=== PATIENT | female | born 1965 | race Caucasian/White ===

== ENCOUNTER → 2018-05-09 18:00 | Outpatient (CLI) | payer BC, SELFPAY ==
[2018-05-09 18:03] LABS: Microscopic, Urine URINE MICROSCOPIC (MICROSCOPIC)
[2018-05-09 18:39] LABS: Appearance,Urine CLOUDY (Clear); Bilirubin,Urine Negative (Negative); Blood, Urine Negative (Negative); Color,Urine YELLOW (Yellow); Glucose,Urine (UA) 2+ (Negative); Ketones,Urine Negative (Negative); Leukocyte Esterase,Urine Negative (Negative); Nitrate,Urine POSITIVE (Negative); PH,Urine 5.5 (5.0-8.5); Protein,Urine Negative (Negative); Urobilinogen,Urine 0.2 EU/dl (0.2)
[2018-05-09 18:45] LABS: Basophils % 0.5 % (0.1-2.0); Eosinophils # 0.1 K/mm3 (0.0-0.4); Eosinophils % 0.6 % (0.1-12.0); Hematocrit 39.8 % (37.0-47.0); Hemoglobin 12.9 g/dL (12.2-16.2); Lymphocytes # 2.2 K/mm3 (0.7-4.5); Lymphocytes % 26.1 % (10-50); Mean Corpuscular HGB Conc 32.4 g/dL (31.8-35.4); Mean Corpuscular Hemoglobin 30.2 pg (27.0-31.2); Mean Platelet Volume 9.1 fl (7.4-10.4); Monocytes # 0.5 K/mm3 (0.1-1.0); Monocytes % 5.5 % (1.7-9.3); Neutrophils # 5.6 K/mm3 (1.8-7.8); Neutrophils % 67.3 % (37.0-80.0); Platelet Count 199 K/mm3 (142-424); Red Blood Count 4.28 M/mm3 (4.20-5.40); Red Cell Distribution Width 13.7 % (11.5-17.5); White Blood Count 8.3 K/mm3 (4.8-10.8)
[2018-05-09 19:13] LABS: Amorphous Sediment,Urine 4+ /lpf
[2018-05-09 19:30] LABS: Hemoglobin A1C 9.2 % (0.0-7.0)
[2018-05-09 19:51] LABS: Alanine Aminotransferase 71 U/L (12-78); Albumin Level 3.5 gm/dL (3.4-5.0); Albumin/Globulin Ratio 0.9 (1.1-1.8); Alkaline Phosphatase 106 U/L (46-116); Anion Gap 13.5 mEq/L (5-15); Aspartate Amino Transferase 56 U/L (15-37); Bilirubin,Total 0.5 mg/dL (0.2-1.0); Blood Urea Nitrogen 21 mg/dL (7-18); Calcium 8.8 mg/dL (8.5-10.1); Carbon Dioxide 31 mmol/L (21.0-32.0); Chloride 99 mmol/L (98-107); Chol/HDL Ratio 4.9 (1-3.5); Cholesterol 132 mg/dL (140-200); Creatinine,Serum 0.98 mg/dL (0.55-1.02); Estimated Glomerular Filt Rate 60 ml/min (>60); GFR (African American) 73 ML/MIN (>60); Globulin 3.8 gm/dl (1.3-3.2); Glucose 253 mg/dL (74-106); HDL Cholesterol 27 mg/dL (29-89); LDL Cholesterol 89 mg/dL (0-130); Potassium 4.5 mmoL/L (3.5-5.1); Sodium 139 mmol/L (136-145); T4 (Thyroxine) 10.2 ug/dl (4.7-13.3); Total Protein,Serum 7.3 gm/dL (6.4-8.2); Triglycerides 82 mg/dL (30-200); VLDL Cholesterol 16 mg/dL (0-40)
[2018-05-11 06:41] LABS: Microalbumin, Urine 6.2 ug/mL (Not Estab.)
[2018-05-11 18:07] LABS: Hep A Ab, IgM Negative (Negative); Hepatitis B Core Antibody IgM Negative (Negative); Hepatitis B Surface Antigen Negative (Negative)
[2018-05-13 09:54] LABS: Hepatitis C Antibody >11.0 s/co ratio (0.0-0.9)
[2018-05-13 09:56] LABS: Vitamin D 25 Hydroxy 21.9 ng/mL (30.0-100.0)
== END ==
PROVIDERS: Visit Provider Emergency Medicine
DX: E11.9 Type 2 diabetes mellitus without complications (principal); N39.0 Urinary tract infection, site not specified; G62.9 Polyneuropathy, unspecified; E66.9 Obesity, unspecified; Z72.0 Tobacco use; Z79.84 Long term (current) use of oral hypoglycemic drugs; Z79.899 Other long term (current) drug therapy
CPT/HCPCS: 80053; 80061; 80074; 81001; 82043; 82570; 82652; 83036; 84436; 84443; 85025; 87086; 87088; 87186

== ENCOUNTER → 2018-05-14 14:47 | Outpatient (CLI) | payer BC, SELFPAY ==
[2018-05-14 15:16] LABS: INR 1.03 (0.9-1.1); Prothrombin Time 10.6 seconds (9.4-11.8)
[2018-05-16 10:53] LABS: HIV Screen 4th Generation wRfx Non Reactive (Non Reactive); Hep A Ab, Total Negative (Negative)
[2018-05-18 20:07] LABS: HCV Genotype Charge YES; Hepatitis C Genotype 3 (.)
== END ==
PROVIDERS: Visit Provider Emergency Medicine
DX: R76.8 Other specified abnormal immunological findings in serum (principal)
CPT/HCPCS: 36415; 85610; 86703; 86708; 87522; 87902; G0432

== ENCOUNTER → 2018-12-03 18:37 | Outpatient (CLI) | payer BC, SELFPAY ==
[2018-12-03 19:02] LABS: Basophils % 0.4 % (0.1-2.0); Eosinophils # 0.1 K/mm3 (0.0-0.4); Eosinophils % 1.1 % (0.1-12.0); Hematocrit 46.9 % (37.0-47.0); Hemoglobin 15.2 g/dL (12.2-16.2); Lymphocytes # 2.1 K/mm3 (0.7-4.5); Mean Corpuscular HGB Conc 32.5 g/dL (31.8-35.4); Mean Corpuscular Hemoglobin 29.9 pg (27.0-31.2); Mean Corpuscular Volume 91.9 fl (81-99); Monocytes # 0.5 K/mm3 (0.1-1.0); Monocytes % 5.4 % (1.7-9.3); Neutrophils % 69.1 % (37.0-80.0); Platelet Count 291 K/mm3 (142-424); Red Cell Distribution Width 14.4 % (11.5-17.5); White Blood Count 8.7 K/mm3 (4.8-10.8)
[2018-12-03 19:20] LABS: Hemoglobin A1C 7.8 % (0.0-7.0)
[2018-12-03 19:28] LABS: Alanine Aminotransferase 112 U/L (12-78); Albumin Level 4.2 gm/dL (3.4-5.0); Albumin/Globulin Ratio 1.1 (1.1-1.8); Alkaline Phosphatase 96 U/L (46-116); Anion Gap 15.4 mEq/L (5-15); Aspartate Amino Transferase 69 U/L (15-37); Bilirubin,Total 0.5 mg/dL (0.2-1.0); Blood Urea Nitrogen 11 mg/dL (7-18); Calcium 9.5 mg/dL (8.5-10.1); Carbon Dioxide 27 mmol/L (21.0-32.0); Chloride 101 mmol/L (98-107); Chol/HDL Ratio 8.1 (1-3.5); Cholesterol 179 mg/dL (140-200); Creatinine,Serum 0.83 mg/dL (0.55-1.02); Estimated Glomerular Filt Rate 72 ml/min (>60); GFR (African American) 88 ML/MIN (>60); Globulin 3.9 gm/dl (1.3-3.2); Glucose 202 mg/dL (74-106); HDL Cholesterol 22 mg/dL (29-89); LDL Cholesterol 123 mg/dL (0-130); Potassium 4.4 mmoL/L (3.5-5.1); Sodium 139 mmol/L (136-145); Thyroid Stimulating Hormone 1.07 uIU/ml (0.358-3.740); Total Protein,Serum 8.1 gm/dL (6.4-8.2); Triglycerides 170 mg/dL (30-200); VLDL Cholesterol 34 mg/dL (0-40)
[2018-12-05 10:11] LABS: Vitamin D 25 Hydroxy 31.5 ng/mL (30.0-100.0)
== END ==
PROVIDERS: Visit Provider Emergency Medicine
DX: E11.9 Type 2 diabetes mellitus without complications (principal); Z79.84 Long term (current) use of oral hypoglycemic drugs
CPT/HCPCS: 80053; 80061; 82652; 83036; 84439; 84443; 85025

== ENCOUNTER → 2018-12-16 10:33 | Outpatient (CLI) | payer BC, SELFPAY ==
--- NOTE | 2018-12-16 10:48 | XR_ITS ---
PROCEDURE: XR LUMBAR SPINE MIN 4V CLINICAL INDICATION: back pain Low back pain COMPARISON: No exams were available for comparison FINDINGS: Minimal lumbar curvature convex right. No fracture or dislocation. There is 5 mm anterolisthesis of L4 on L5. Mild multilevel degenerative disc disease at T10-T11 T11-T12 T12-L1 L1-L2 L2-L3 L4-5 and L5-S1. Facet arthritic changes are also noted at L4 and L5 and S1. No lytic or blastic change. IMPRESSION: Lumbar spondylosis with multilevel degenerative disc disease and facet arthritic change as described above. Dictated by: Stalin Hou MD 12/16/2018 11:18 Electronically signed by Stalin Hou MD in [place] 12/16/2018 11:18
== END ==
PROVIDERS: PCP Emergency Medicine; Visit Provider Emergency Medicine
DX: M54.5 Low back pain (principal)
CPT/HCPCS: 72110

== ENCOUNTER → 2019-03-13 13:22 | Outpatient (CLI) | payer BC, SELFPAY ==
[2019-03-13 16:10] LABS: Amphetamine/Metha Screen,Urine Negative ng/mL (<1000); Barbiturates Screen,Urine Negative ng/mL (<200); Benzodiazepines Screen,Urine Negative ng/mL (<200); Cannabinoid Screen,Urine Negative ng/mL (<50); Cocaine Screen,Urine Negative ng/mL (<300); Methadone Screen,Urine Negative ng/mL (<300); Opiate Screen,Urine Negative ng/mL (<300); Phencyclidine Screen,Urine Negative ng/mL (<25)
[2019-03-24 07:10] LABS: Alprazolam Negative (Cutoff=100); Benzodiazepines Negative ng/mL (Cutoff=100); Clonazepam Negative (Cutoff=100); Flurazepam Negative (Cutoff=100); Lorazepam Negative (Cutoff=100); Midazolam Negative (Cutoff=100); Temazepam Negative (Cutoff=100); Triazolam Negative (Cutoff=100)
== END ==
PROVIDERS: Visit Provider Emergency Medicine
DX: F41.9 Anxiety disorder, unspecified (principal); Z79.899 Other long term (current) drug therapy
CPT/HCPCS: 80305; 80346

== ENCOUNTER → 2020-06-02 17:42 | Outpatient (CLI) | payer BC, SELFPAY ==
[2020-06-02 17:59] LABS: Alanine Aminotransferase 105 U/L (12-78); Albumin Level 4.2 g/dl (3.5-5.0); Albumin/Globulin Ratio 1.1 (1.1-1.8); Alkaline Phosphatase 169 U/L (38-126); Anion Gap 13.8 mEq/L (5-15); Aspartate Amino Transferase 103 U/L (14-36); Bilirubin,Total 0.5 mg/dl (0.2-1.3); Blood Urea Nitrogen 15 mg/dl (7-17); Calcium 9.7 mg/dl (8.4-10.2); Carbon Dioxide 28 mmol/L (22.0-30.0); Chloride 100 mmol/L (98-107); Cholesterol 183 mg/dl (140-200); Estimated Glomerular Filt Rate 105 ml/min (>60); GFR (African American) 127 ML/MIN (>60); Glucose 237 mg/dl (74-100); HDL Cholesterol 26 mg/dl (40-60); Potassium 4.8 mmoL/L (3.5-5.1); Sodium 137 mmol/L (136-145); Total Protein,Serum 8.2 g/dl (6.3-8.2); Triglycerides 254 mg/dl (30-150); VLDL Cholesterol 51 mg/dL (0-40)
[2020-06-02 18:10] LABS: Direct LDL Cholesterol 117.44 mg/dL (100-129)
[2020-06-02 18:16] LABS: T4 (Thyroxine) 12.3 ug/dl (5.53-11.0)
[2020-06-02 18:30] LABS: Thyroid Stimulating Hormone 1.69 uIU/mL (0.465-4.68)
[2020-06-02 19:32] LABS: 25-OH Vitamin D, Total 20.3 ng/mL (30-100); Barbiturates Screen,Urine Negative ng/ml (<200)
[2020-06-02 19:33] LABS: Benzodiazepines Screen,Urine Negative ng/ml (<200); Cannabinoid Screen,Urine Negative ng/ml (<50)
[2020-06-02 19:34] LABS: Cocaine Screen,Urine Negative ng/ml (<300); Creatinine,Urine Random 84 mg/dL (Not Estab.)
[2020-06-02 19:35] LABS: Methadone Screen,Urine Negative ng/ml (<300); Opiate Screen,Urine Negative ng/ml (<300)
[2020-06-02 19:36] LABS: Phencyclidine Screen,Urine Negative ng/ml (<25)
[2020-06-02 19:43] LABS: Microalbumin > 570.000 mg/L (0-16.7); Microalbumin/Creatinine Ratio 678.5
[2020-06-04 18:03] LABS: C-Peptide 6.2 ng/mL (1.1-4.4)
[2020-06-08 11:35] LABS: Amphetamine Positive (.); Amphetamines Positive (.); Methamphetamine Positive (.)
[2020-06-08 16:39] LABS: Amphetamine (GC/MS) 1530 ng/mL (Cutoff=500); Methamphetamine (GC/MS) >3000 ng/mL (Cutoff=500)
== END ==
PROVIDERS: Visit Provider Nurse Practitioner Family
DX: E11.9 Type 2 diabetes mellitus without complications (principal); E55.9 Vitamin D deficiency, unspecified; E66.9 Obesity, unspecified; I10 Essential (primary) hypertension; F41.9 Anxiety disorder, unspecified; G62.9 Polyneuropathy, unspecified; Z79.4 Long term (current) use of insulin; Z79.899 Other long term (current) drug therapy
CPT/HCPCS: 80053; 80061; 80305; 80324; 82043; 82306; 82570; 84436; 84443; 84681

== ENCOUNTER → 2021-05-01 16:00 | Outpatient (CLI) | payer BC, SELFPAY ==
[2021-05-01 18:14] LABS: Basophils # 0.1 K/mm3 (0-0.2); Basophils % 1.3 % (0.1-2.0); Eosinophils # 0.1 K/mm3 (0.0-0.4); Eosinophils % 1.6 % (0.1-12.0); Hematocrit 42.2 % (37.0-47.0); Hemoglobin 13.5 g/dL (12.2-16.2); Lymphocytes # 1.5 K/mm3 (0.7-4.5); Mean Corpuscular HGB Conc 31.9 g/dL (31.8-35.4); Mean Corpuscular Hemoglobin 29.2 pg (27.0-31.2); Mean Corpuscular Volume 91.4 fl (81-99); Monocytes # 0.3 K/mm3 (0.1-1.0); Monocytes % 6.5 % (1.7-9.3); Neutrophils # 2.7 K/mm3 (1.8-7.8); Neutrophils % 58.6 % (37.0-80.0); Platelet Count 176 K/mm3 (142-424); Red Blood Count 4.62 M/mm3 (4.20-5.40); Red Cell Distribution Width 14.2 % (11.5-17.5); White Blood Count 4.6 K/mm3 (4.8-10.8)
[2021-05-01 18:30] LABS: Alanine Aminotransferase 72 U/L (12-78); Albumin Level 3.4 g/dl (3.5-5.0); Albumin/Globulin Ratio 1.1 (1.1-1.8); Alkaline Phosphatase 259 U/L (38-126); Anion Gap 9.8 mEq/L (5-15); Aspartate Amino Transferase 77 U/L (14-36); Bilirubin,Total 0.4 mg/dl (0.2-1.3); Blood Urea Nitrogen 18 mg/dl (7-17); Calcium 9.2 mg/dl (8.4-10.2); Carbon Dioxide 30 mmol/L (22.0-30.0); Chloride 96 mmol/L (98-107); Chol/HDL Ratio 7.3 (1-3.5); Cholesterol 198 mg/dl (140-200); Estimated Glomerular Filt Rate 129 ml/min (>60); GFR (African American) 156 ML/MIN (>60); HDL Cholesterol 27 mg/dl (40-60); Potassium 4.8 mmoL/L (3.5-5.1); Sodium 131 mmol/L (136-145); Total Protein,Serum 6.4 g/dl (6.3-8.2)
[2021-05-01 18:40] LABS: Direct LDL Cholesterol 131.61 mg/dL (100-129)
[2021-05-01 18:43] LABS: Triglycerides 458 mg/dl (30-150)
[2021-05-01 18:47] LABS: 25-OH Vitamin D, Total < 12.8 ng/mL (30-100)
[2021-05-01 18:52] LABS: Amphetamine/Metha Screen,Urine Negative ng/ml (<1000); Barbiturates Screen,Urine Negative ng/ml (<200)
[2021-05-01 18:53] LABS: Benzodiazepines Screen,Urine Negative ng/ml (<200)
[2021-05-01 18:54] LABS: Cannabinoid Screen,Urine Positive ng/ml (<50); Cocaine Screen,Urine Negative ng/ml (<300)
[2021-05-01 18:55] LABS: Methadone Screen,Urine Negative ng/ml (<300); Opiate Screen,Urine Negative ng/ml (<300)
[2021-05-01 18:56] LABS: Phencyclidine Screen,Urine Negative ng/ml (<25)
[2021-05-01 18:59] LABS: Thyroid Stimulating Hormone 1.44 uIU/mL (0.465-4.68)
[2021-05-01 19:48] LABS: Glucose 501 mg/dl (74-100)
[2021-05-05 18:14] LABS: HCV Genotype Charge YES; Hepatitis C Genotype 3 (.)
== END ==
PROVIDERS: Visit Provider Emergency Medicine
DX: E11.9 Type 2 diabetes mellitus without complications (principal); E55.9 Vitamin D deficiency, unspecified; Z79.899 Other long term (current) drug therapy; Z79.4 Long term (current) use of insulin
CPT/HCPCS: 80053; 80061; 80305; 82306; 83036; 84439; 84443; 85025; 87522; 87902

== ENCOUNTER → 2021-09-06 07:04 | Outpatient (CLI) | payer BC, SELFPAY ==
[2021-09-05 18:27] LABS: Chloride 104 mmol/L (98-107); Potassium 3.8 mmoL/L (3.5-5.1); Sodium 140 mmol/L (136-145)
[2021-09-05 18:30] LABS: Anion Gap 6.8 mEq/L (5-15); Blood Urea Nitrogen 13 mg/dl (7-17); Calcium 9.9 mg/dl (8.4-10.2); Carbon Dioxide 33 mmol/L (22.0-30.0); Estimated Glomerular Filt Rate 105 ml/min (>60); GFR (African American) 127 ML/MIN (>60)
[2021-09-05 18:35] LABS: Glucose 42 mg/dl (74-100)
[2021-09-05 18:56] LABS: Hemoglobin A1C 8.2 % (4.0-6.0)
== END ==
PROVIDERS: PCP Emergency Medicine; Visit Provider Emergency Medicine
DX: E11.9 Type 2 diabetes mellitus without complications (principal); E66.9 Obesity, unspecified; Z79.4 Long term (current) use of insulin
CPT/HCPCS: 80048; 83036

== ENCOUNTER → 2021-11-03 16:16 | Outpatient (CLI) | payer BC, SELFPAY ==
[2021-11-03 15:58] LABS: Benzodiazepines Screen,Urine Negative ng/ml (<200)
[2021-11-03 15:59] LABS: Amphetamine/Metha Screen,Urine Negative ng/ml (<1000); Barbiturates Screen,Urine Negative ng/ml (<200)
[2021-11-03 16:00] LABS: Cannabinoid Screen,Urine Negative ng/ml (<50)
[2021-11-03 16:01] LABS: Cocaine Screen,Urine Negative ng/ml (<300); Methadone Screen,Urine Negative ng/ml (<300)
[2021-11-03 16:02] LABS: Opiate Screen,Urine Negative ng/ml (<300)
[2021-11-03 16:03] LABS: Phencyclidine Screen,Urine Negative ng/ml (<25)
== END ==
PROVIDERS: Visit Provider Emergency Medicine
DX: Z79.899 Other long term (current) drug therapy (principal)
CPT/HCPCS: 80305

== ENCOUNTER 2022-02-19 18:27 | Emergency (ER) | payer BC, SELFPAY ==
[2022-02-19 18:18] VITALS: BP 169/91; PULSE 109; RESP 18; TEMP 36.7; O2SAT 99; BMI 30.5
--- NOTE | 2022-02-19 18:24 | PC.NURSE ---
ED MD AT BEDSIDE FOR EVALUATE
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
[2022-02-19 19:01] LABS: Basophils # 0.1 K/mm3 (0-0.2); Basophils % 1.2 % (0.1-2.0); Eosinophils # 0.1 K/mm3 (0.0-0.4); Eosinophils % 1.2 % (0.1-12.0); Hematocrit 39.3 % (37.0-47.0); Hemoglobin 12.3 g/dL (12.2-16.2); Lymphocytes # 1.5 K/mm3 (0.7-4.5); Lymphocytes % 27.4 % (10-50); Mean Corpuscular HGB Conc 31.2 g/dL (31.8-35.4); Mean Corpuscular Hemoglobin 28.5 pg (27.0-31.2); Mean Corpuscular Volume 91.3 fl (81-99); Mean Platelet Volume 10.1 fl (7.4-10.4); Monocytes # 0.3 K/mm3 (0.1-1.0); Neutrophils # 3.5 K/mm3 (1.8-7.8); Neutrophils % 65.3 % (37.0-80.0); Platelet Count 152 K/mm3 (142-424); Red Blood Count 4.31 M/mm3 (4.20-5.40); Red Cell Distribution Width 13.8 % (11.5-17.5); White Blood Count 5.3 K/mm3 (4.8-10.8)
--- NOTE | 2022-02-19 19:05 | PC.NURSE ---
PT AMBULATED TO BR BUT DID NOT GIVE A SAMPLE
[2022-02-19 19:12] LABS: Potassium 3.8 mmoL/L (3.5-5.1)
[2022-02-19 19:13] LABS: Alanine Aminotransferase 58 U/L (12-78); Albumin Level 2.8 g/dl (3.5-5.0); Albumin/Globulin Ratio 0.8 (1.1-1.8); Alkaline Phosphatase 242 U/L (38-126); Anion Gap 14.8 mEq/L (5-15); Aspartate Amino Transferase 55 U/L (14-36); Blood Urea Nitrogen 17 mg/dl (7-17); Calcium 8.5 mg/dl (8.4-10.2); Carbon Dioxide 29 mmol/L (22.0-30.0); Chloride 92 mmol/L (98-107); Creatinine Clearance Estimated 110 mL/min (50-200); Estimated Glomerular Filt Rate 87 ml/min (>60); GFR (African American) 106 ML/MIN (>60); Globulin 3.3 g/dL (1.3-3.2); Sodium 132 mmol/L (136-145); Total Protein,Serum 6.1 g/dl (6.3-8.2)
[2022-02-19 19:26] LABS: Bilirubin,Total < 0.1 mg/dl (0.2-1.3)
[2022-02-19 19:28] LABS: Glucose 666 mg/dl (74-100)
--- NOTE | 2022-02-19 19:31 | PC.NURSE ---
lab called and reported glucose of 666. repeated and verified. Notified
[2022-02-19 19:38] LABS: Microscopic, Urine URINE MICROSCOPIC (MICROSCOPIC)
[2022-02-19 19:39] LABS: Appearance,Urine CLEAR (Clear); Bilirubin,Urine Negative (Negative); Blood, Urine 1+ (Negative); Glucose,Urine (UA) 3+ (Negative); Ketones,Urine Negative (Negative); Leukocyte Esterase,Urine Negative (Negative); Nitrate,Urine Negative (Negative); PH,Urine 6.5 (5.0-8.5); Protein,Urine 2+ (Negative); Specific Gravity, Urine 1.015 (1.005-1.030); Urobilinogen,Urine 0.2 EU/dl (0.2)
[2022-02-19 19:45] LABS: Color,Urine Straw (Yellow)
[2022-02-19 20:11] LABS: Bacteria,Urine Trace /lpf
[2022-02-19 20:16] LABS: Coronavirus 19, PCR Not Detected (NotDetected); Influenza A, PCR Not Detected (NotDetected); Influenza B, PCR Not Detected (NotDetected)
--- NOTE | 2022-02-19 20:35 | PC.NURSE ---
Dr. Murphy gave verbal order regarding patient blood glucose control. Per MD, patient is to be given 5 units of regular insulin every 30 minutes until her blood glucose reaches 400.
--- NOTE | 2022-02-19 21:00 | PC.NURSE ---
Patients repeat blood glucose was 318.
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
[2022-02-19 21:11] VITALS: BP 170/90; PULSE 102; RESP 18; TEMP 36.6; O2SAT 99
[2022-02-19 21:20] LABS: POC Glucose,Bedside 318 (70-110)
== END 2022-02-19 21:13 | disposition home or self-care (01) ==
PROVIDERS: Emergency Provider Emergency Medicine; PCP Emergency Medicine
DX: S22.080A Wedge compression fracture of T11-T12 vertebra, initial encounter for closed fracture (principal); R73.9 Hyperglycemia, unspecified; N39.0 Urinary tract infection, site not specified; Z79.82 Long term (current) use of aspirin; Z79.84 Long term (current) use of oral hypoglycemic drugs; Z79.4 Long term (current) use of insulin; Z79.899 Other long term (current) drug therapy; F41.9 Anxiety disorder, unspecified; G62.9 Polyneuropathy, unspecified; I10 Essential (primary) hypertension; E11.9 Type 2 diabetes mellitus without complications; B19.20 Unspecified viral hepatitis C without hepatic coma
CPT/HCPCS: 70450; 71260; 72125; 74177; 80053; 81001; 82962; 85025; 96365; 96367; 96375; 99291; C9803; J0696; Q9967; U0003; U0005

== ENCOUNTER 2022-03-02 13:30 | Emergency (ER) | payer OTHER, BC, SELFPAY ==
[2022-03-02 13:51] VITALS: BP 143/75; PULSE 100; RESP 18; TEMP 36.7; O2SAT 95; BMI 32.5
[2022-03-02 14:37] VITALS: BP 143/75; PULSE 100; RESP 18; TEMP 36.7; O2SAT 96; BMI 32.7
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
[2022-03-02 15:46] VITALS: BP 143/75; PULSE 100; RESP 18; TEMP 36.7
== END 2022-03-02 15:47 | disposition home or self-care (01) ==
LOC: ER 13:58 → UTC 13:58
PROVIDERS: Emergency Provider Nurse Practitioner Family; PCP Emergency Medicine
DX: M54.6 Pain in thoracic spine (principal); R07.81 Pleurodynia; V89.2XXS Person injured in unspecified motor-vehicle accident, traffic, sequela
CPT/HCPCS: 99212; G0463

== ENCOUNTER → 2022-03-13 14:13 | Outpatient (CLI) | payer BC, SELFPAY ==
[2022-03-13 22:07] LABS: Amphetamine/Metha Screen,Urine Negative ng/ml (<1000)
[2022-03-13 22:08] LABS: Barbiturates Screen,Urine Negative ng/ml (<200); Benzodiazepines Screen,Urine Negative ng/ml (<200)
[2022-03-13 22:09] LABS: Cannabinoid Screen,Urine Positive ng/ml (<50)
[2022-03-13 22:10] LABS: Cocaine Screen,Urine Negative ng/ml (<300); Methadone Screen,Urine Negative ng/ml (<300)
[2022-03-13 22:11] LABS: Opiate Screen,Urine Negative ng/ml (<300); Phencyclidine Screen,Urine Negative ng/ml (<25)
== END ==
PROVIDERS: PCP Emergency Medicine; Visit Provider Emergency Medicine
DX: Z79.899 Other long term (current) drug therapy (principal)
CPT/HCPCS: 80305

== ENCOUNTER 2022-03-20 16:46 | Outpatient (RCR) | payer BC, SELFPAY ==
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
== END 2022-03-20 16:50 | disposition home or self-care (01) ==
LOC: PT 16:46
PROVIDERS: PCP Emergency Medicine; Visit Provider Emergency Medicine
DX: M54.6 Pain in thoracic spine (principal); M54.50 Low back pain, unspecified
CPT/HCPCS: 97014; 97110; 97163; 97535; G0283

== ENCOUNTER → 2022-04-10 11:37 | Outpatient (CLI) | payer BC, SELFPAY | PROVIDERS: PCP Student in an Organized Health Care Education/Training Program; Visit Provider Student in an Organized Health Care Education/Training Program | DX: R05.9 Cough, unspecified (principal) | CPT/HCPCS: C9803; U0003; U0005 ==

== ENCOUNTER 2022-04-12 10:47 | Observation (INO) | payer BC, SELFPAY ==
[2022-04-12] VITALS (15 sets, daily range): BP systolic 134–199; BP diastolic 70–102; PULSE 79–112; RESP 18–24; TEMP 36.8–38.4; O2SAT 90–96; BMI 34.7; BMI 31.5
[2022-04-12 11:01] LABS: Coronavirus 19, PCR Not Detected (NotDetected); Influenza A, PCR Not Detected (NotDetected); Influenza B, PCR Not Detected (NotDetected)
--- NOTE | 2022-04-12 11:03 | PC.NURSE ---
DEZ CALDERÓN at for patient eval
--- NOTE | 2022-04-12 11:06 | XR_ITS ---
FINAL REPORT CLINICAL HISTORY: cough FINDINGS: PA and lateral views of the chest are obtained. There is no prior exam for comparison. The cardiac and mediastinal silhouettes are within normal limits. There are subtle bibasilar opacities, developing pneumonia is not excluded. There is no pleural effusion, pneumothorax, or acute osseous abnormality. IMPRESSION: Possible developing pneumonia. Reviewed, Interpreted and Dictated by Randi Hector MD Transcribed by Sherice Jimenez Authenticated and [facility]
--- NOTE | 2022-04-12 11:07 | HMH.EDGENADL ---
Discharge Plan Disposition Patient Disposition: Admitted as Observation Condition: Fair Chief Complaint: Fever Prescriptions Prescriptions: No Action (DME) lancets 30 gauge misc See Rx Instructions .ROUTE .MEDSUPPLY Qty: 25 Rx Instructions: As directed (DME) blood sugar diagnostic Strip See Rx Instructions .ROUTE .MEDSUPPLY Qty: 10 Rx Instructions: As directed citalopram [Celexa] 20 mg tablet 20 mg PO DAILY Qty: 90 0RF clonazepam [Klonopin] 0.5 mg tablet 0.5 mg PO TID Qty: 90 1RF gabapentin 800 mg tablet 800 mg PO QID Qty: 120 1RF albuterol sulfate 90 mcg/actuation HFA aerosol inhaler 1 inh inhalation QID Qty: 6.7 0RF benzonatate 100 mg capsule 100 mg PO BID PRN (Reason: cough) Qty: 20 0RF aspirin 81 mg tablet,delayed release (DR/EC) 81 mg PO DAILY Qty: 90 3RF (DME) Accu-Chek Guide test strips Strip See Rx Instructions .Route Qty: 100 2RF Rx Instructions: Test sugar twice daily or As directed (DME) blood-glucose meter [Accu-Chek Guide Glucose Meter] [facility] See Rx Instructions .Route Qty: 1 0RF Rx Instructions: Test sugar once daily or As directed citalopram 40 mg tablet See Rx Instructions .ROUTE .COMPLEX Qty: 90 0RF Dose Instruction: TAKE 1 TABLET BY MOUTH DAILY. Rx Instructions: TAKE 1 TABLET BY MOUTH DAILY. glimepiride 1 mg tablet See Rx Instructions .ROUTE .COMPLEX Qty: 90 0RF Dose Instruction: TAKE 1 TABLET BY MOUTH ONCE DAILY IN THE MORNING FOR DIABETES Rx Instructions: TAKE 1 TABLET BY MOUTH ONCE DAILY IN THE MORNING FOR DIABETES Lantus Solostar U-100 Insulin 100 unit/mL (3 mL) insulin pen 20 unit SQ BID Qty: 15 2RF insulin lispro [Humalog KwikPen Insulin] 100 unit/mL insulin pen 12 unit SQ TID Qty: 15 0RF metformin 1,000 mg tablet See Rx Instructions .ROUTE .COMPLEX Qty: 180 2RF Dose Instruction: TAKE 1 TAB BY MOUTH 2 TIMES DAILY (WITH MEALS) FOR 30 DAYS. Rx Instructions: TAKE 1 TAB BY MOUTH 2 TIMES DAILY (WITH MEALS) FOR 30 DAYS. (DME) pen needle, diabetic [BD Ultra-Fine Mini Pen Needle] 31 gauge x 3/16 needle See Rx Instructions .ROUTE .COMPLEX Qty: 100 2RF Dose Instruction: USE WITH INSULIN DIRECTED Rx Instructions: USE WITH INSULIN DIRECTED Januvia 100 mg tablet See Rx Instructions .ROUTE .COMPLEX Qty: 90 0RF Dose Instruction: TAKE 1 TABLET BY MOUTH ONCE DAILY Rx Instructions: TAKE 1 TABLET BY MOUTH ONCE DAILY diclofenac sodium 1 % gel 2 g topical QID Qty: 100 0RF Rx Instructions: apply to single elbow, wrist or hand; for hand includes palm/fingers/back of hand (DME) lancets [Accu-Chek Softclix Lancets] Misc See Rx Instructions .Route Qty: 100 2RF Rx Instructions: Test sugar twice daily or As directed lisinopril 10 mg tablet See Rx Instructions .ROUTE .COMPLEX Qty: 30 0RF Dose Instruction: TAKE 1 TABLET BY MOUTH ONCE DAILY Rx Instructions: TAKE 1 TABLET BY MOUTH ONCE DAILY ondansetron 4 mg Tablet,Disintegrating 4 mg PO Q8H PRN (Reason: Nausea) Qty: 20 0RF simvastatin 20 mg tablet 20 mg PO DAILY Rx Instructions: TAKE 1 TABLET BY MOUTH ONCE DAILY AT BEDTIME oxycodone-acetaminophen [Percocet] 7.5-325 mg tablet 1 tab PO TID Referrals Follow up/Referrals: Yo Fuentes MD [Primary Care Provider] - See instructions Clinical Impressions Clinical Impression: Sepsis, Pneumonia Discharge ED Provider: Jer Dee Adult HPI General Chief complaint: Fever Stated complaint: HEADACHE BODY ACHES COUGHDIARREHA Time Seen by Provider: 04/12/22 11:03 Mode of Arrival: Wheelchair Source of Information: Patient Limitations: No Limitations Description of Symptoms (Recalled from ER Triage Doc. by RN): Pt c/o body aches, headaches, non-productive cough, nausea and fever x8 days. Pt reports no appetitie and no energy. History
[2022-04-12 11:08] LABS: POC Glucose,Bedside 301 (70-110)
--- NOTE | 2022-04-12 11:25 | PC.NURSE ---
pt returned from radiology
--- NOTE | 2022-04-12 11:25 | PC.NURSE ---
pt return from xray
[2022-04-12 11:40] LABS: Basophils % 0.2 % (0.1-2.0); Chloride 101 mmol/L (98-107); Eosinophils # 0.2 K/mm3 (0.0-0.4); Eosinophils % 1.6 % (0.1-12.0); Hematocrit 39.6 % (37.0-47.0); Hemoglobin 12.4 g/dL (12.2-16.2); Lymphocytes # 1.2 K/mm3 (0.7-4.5); Lymphocytes % 10.5 % (10-50); Mean Corpuscular HGB Conc 31.4 g/dL (31.8-35.4); Mean Corpuscular Hemoglobin 28.5 pg (27.0-31.2); Mean Corpuscular Volume 90.9 fl (81-99); Mean Platelet Volume 8.8 fl (7.4-10.4); Monocytes # 0.4 K/mm3 (0.1-1.0); Neutrophils # 10.1 K/mm3 (1.8-7.8); Neutrophils % 84.8 % (37.0-80.0); Platelet Count 191 K/mm3 (142-424); Potassium 4.4 mmoL/L (3.5-5.1); Red Blood Count 4.36 M/mm3 (4.20-5.40); Red Cell Distribution Width 14.4 % (11.5-17.5); Sodium 136 mmol/L (136-145); White Blood Count 11.9 K/mm3 (4.8-10.8)
[2022-04-12 11:42] LABS: Blood Urea Nitrogen 13 mg/dl (7-17); Creatinine Clearance Estimated 109 mL/min (50-200); Estimated Glomerular Filt Rate 75 ml/min (>60); GFR (African American) 90 ML/MIN (>60)
[2022-04-12 11:43] LABS: Alanine Aminotransferase 39 U/L (12-78); Alkaline Phosphatase 127 U/L (38-126); Anion Gap 9.4 mEq/L (5-15); Aspartate Amino Transferase 41 U/L (14-36); Bilirubin,Total 0.3 mg/dl (0.2-1.3); Calcium 8.4 mg/dl (8.4-10.2); Carbon Dioxide 30 mmol/L (22.0-30.0); Glucose 346 mg/dl (74-100); Total Protein,Serum 6.9 g/dl (6.3-8.2)
[2022-04-12 11:49] LABS: Albumin Level 3.2 g/dl (3.5-5.0); Albumin/Globulin Ratio 0.9 (1.1-1.8); Globulin 3.7 g/dL (1.3-3.2)
--- NOTE | 2022-04-12 13:16 | PC.NURSE ---
DEZ CALDERÓN at for update on POC
--- NOTE | 2022-04-12 13:21 | PC.NURSE ---
ordered patient a diabetic dietary tray
--- NOTE | 2022-04-12 13:33 | PC.NURSE ---
pt sitting up eating lunch tray at this time.
--- NOTE | 2022-04-12 14:33 | PC.NURSE ---
Temp re-checked; 99.[address] Dee has been made aware
--- NOTE | 2022-04-12 14:53 | PC.NURSE ---
DR JONES SPEAKING WITH DR. FOURNIER
[2022-04-12 15:06] LABS: Adenovirus,PCR Not Detected (NotDetected); Bordetella Pertussis Not Detected (NotDetected); Chlamydophila Pneumoniae, PCR Not Detected (NotDetected); Coronavirus 19, PCR Not Detected (NotDetected); Coronavirus 229E Not Detected (NotDetected); Coronavirus NL63 Not Detected (NotDetected); Coronavirus OC43 Not Detected (NotDetected); Human Metapneumovirus Not Detected (NotDetected); Influenza A, PCR Not Detected (NotDetected); Influenza AH1, 2009 Not Detected (NotDetected); Influenza AH1, PCR Not Detected (NotDetected); Influenza AH3,PCR Not Detected (NotDetected); Influenza B, PCR Not Detected (NotDetected); Mycoplasma Pneumoniae, PCR Not Detected (NotDetected); Parainfluenza 1, PCR Not Detected (NotDetected); Parainfluenza 2, PCR Not Detected (NotDetected); Parainfluenza 3, PCR Not Detected (NotDetected); Parainfluenza 4, PCR Not Detected (NotDetected); Respiratory Syncytial Virus Not Detected (NotDetected)
--- NOTE | 2022-04-12 15:25 | PC.NURSE ---
Spoke with Krystal in care management regarding admission
--- NOTE | 2022-04-12 15:42 | CT_ITS ---
FINAL REPORT TECHNIQUE: Thin section axial images were obtained from the lung apices through the upper abdomen without contrast. This study was performed with techniques to keep radiation doses as low as reasonably achievable (ALARA). Individualized dose reduction techniques using automated exposure control or adjustment of mA and/or kV according to the patient's size were employed. CLINICAL HISTORY: Bilateral Pneumonia per Dr Ventura. COMPARISON: 02/19/2022 FINDINGS: There is no mediastinal, hilar, or axillary lymphadenopathy. There is no pleural effusion. There is trace pericardial effusion. There is a stable, 5 mm posterior right upper lobe nodule seen on image 28. The lungs are otherwise clear. Limited, unenhanced evaluation of the upper abdomen reveal cirrhosis and splenomegaly. There is no acute osseous abnormality. IMPRESSION: No acute intrathoracic abnormality. Stable right upper lobe nodule and cirrhosis. Reviewed, Interpreted and Dictated by Randi Hector MD Transcribed by Sherice Jimenez Authenticated and . [facility]
--- NOTE | 2022-04-12 15:51 | EXP.HP ---
History of Present Illness *Admission Date: 04/12/22 *Reason for visit:: Chief complaint: Fever *History of present illness: This is a 56-year-old female that presents to [facility] emergency department with concerns of fever and weakness. She reports she was seen as an outpatient 2 days ago with fever and placed on medication and she is not feeling better. In the ED she reports a cough that is occasionally productive of yellow sputum with no associated hemoptysis. She identifies increased shortness of air with activities that has progressed over the last 48 hours. She reports associated fever and chills but no diffuse rashes. She recalls no recent travel abroad. She denies syncope. Her past medical history is significant for tobacco dependence, COPD, diabetes, hypertension, chronic opioid and benzodiazepine therapy and hepatitis C (treatment na?ve). In the ED she is tachycardic with increased respiratory rate and febrile. Her labs identified leukocytoses with a lactic acidosis. Her chest x-ray is concerning for pneumonia. Blood cultures have been acquired and she has been started on broad-spectrum IV antibiotic therapy. [facility] Disclaimer: The information contained in this section may have been updated after the patient was seen, as this information can be updated by other users. Medical History (Updated 04/12/22 @ 16:12 by Chris Ventura MD) BMI over 35 Chronic, continuous use of opioids Chronically on benzodiazepine therapy COPD (chronic obstructive pulmonary disease) Diabetes Generalized anxiety disorder HCV (hepatitis C virus) HTN (hypertension) Hyperlipidemia Neuropathy Surgical History (Updated 04/12/22 @ 15:58 by Chris Ventura MD) History of colonoscopy Family History (Updated 04/12/22 @ 15:59 by Chris Ventura MD) Mother COPD (chronic obstructive pulmonary disease) Father COPD (chronic obstructive pulmonary disease) Social History (Updated 04/12/22 @ 16:00 by Chris Ventura MD) Smoking Status: Current every day smoker tobacco type: cigarettes years smoked: 35 quit status: considering quitting alcohol intake: never substance use type: denies use current occupational status: disabled Travel in the last 8 weeks: None housing: house number of children: 0 Review of Systems Review of Systems Review of systems:: pertinent systems reviewed and negative unless documented below Constitutional Constitutional: Reports chills, Reports fatigue, Reports fever(s), Reports malaise and Reports weakness *Cardiovascular Cardiovascular: Reports dyspnea and Reports dyspnea on exertion *Respiratory Respiratory: Reports change in phlegm color, Reports chest congestion, Reports cough, Reports dyspnea, Reports dyspnea on exertion and Denies hemoptysis *Musculoskeletal Musculoskeletal: Denies numbness *Neurologic Neurologic: Denies numbness and Reports weakness Psychiatric Psychiatric: Reports anxiety Endocrine Endocrine: Reports fatigue Meds Home Medications and Allergies Home Medications Medication Instructions Recorded Confirmed Type blood sugar diagnostic #10 ea 08/18/19 04/10/22 History lancets 30 gauge #25 ea 08/18/19 04/10/22 History lancets (Accu-Chek Softclix #100 ea 06/21/21 04/10/22 Rx Lancets) aspirin 81 mg tablet,delayed 81 mg PO DAILY #90 tabs 01/24/22 04/10/22 Rx release blood sugar diagnostic (Accu-Chek #100 ea 01/24/22 04/10/22 Rx Guide test strips) blood-glucose meter (Accu-Chek #1 ea 01/24/22 04/10/22 Rx Guide Glucose Meter) citalopram 40 mg tablet See Rx Instructions .Route 01/24/22 04/10/22 Rx .COMPLEX #90 tabs glimepiride 1 mg tablet See Rx Instructions .Route 01/24/22 04/10/22 Rx .COMPLEX #90 tabs insulin glargine 100 unit/mL (3 20 unit (0.2 mL) SQ BID #15 mL 01/24/22 04/10/22 Rx mL) subcutaneous pen (Lantus Solostar U-100 Insulin) insulin lispro 100 unit/mL 12 unit (0.12 mL) SQ TID #15 mL 01/24/22
--- NOTE | 2022-04-12 15:53 | PC.NURSE ---
report called to ehsan zarco on second floor at this time, states she will send staff down to transport pt.
--- NOTE | 2022-04-12 16:01 | PC.NURSE ---
Pt arrived to the floor at this time
[2022-04-12 16:25] LABS: Coronovirus HKU1,PCR Detected (NotDetected)
[2022-04-12 16:26] LABS: Rhinovirus/Enterovirus Detected (NotDetected)
[2022-04-12 16:49] LABS: POC Glucose,Bedside 180 (70-110)
--- NOTE | 2022-04-12 16:53 | PC.NURSE ---
Med rec completed to the best of my ability. Pt admits to being non compliant with her meds and not completely sure what she takes and when. She states she only takes her insulin when she feels like her sugar is elevated.
--- NOTE | 2022-04-12 18:53 | PC.NURSE ---
Pt has been unable to produce sputum, specimen cup is at bedside.
[2022-04-12 20:21] LABS: POC Glucose,Bedside 257 (70-110)
[2022-04-13 03:58] VITALS: BP 129/71; PULSE 74; RESP 20; TEMP 36.7; O2SAT 96; BMI 32.1
[2022-04-13 05:14] LABS: POC Glucose,Bedside 286 (70-110)
--- NOTE | 2022-04-13 05:42 | PC.NURSE ---
remains in airborn/contact precautions secondary TO COVID +. FSBS THIS AM WAS 286 AND RECEIVED 10 UNITS HUMALOG SUBCUT. PERSISTANT DRY COUGH NOTED. EXPIRATORY WHEEZES NOTE. 02 SAT 96% ON ROOM AIR.
[2022-04-13 06:51] LABS: Basophils % 0.4 % (0.1-2.0); Eosinophils % 0.1 % (0.1-12.0); Hematocrit 34.1 % (37.0-47.0); Hemoglobin 11.2 g/dL (12.2-16.2); Lymphocytes # 1.7 K/mm3 (0.7-4.5); Lymphocytes % 20.9 % (10-50); Mean Corpuscular HGB Conc 32.7 g/dL (31.8-35.4); Mean Corpuscular Hemoglobin 28.8 pg (27.0-31.2); Mean Corpuscular Volume 88.1 fl (81-99); Mean Platelet Volume 9.1 fl (7.4-10.4); Monocytes # 0.3 K/mm3 (0.1-1.0); Monocytes % 3.2 % (1.7-9.3); Neutrophils # 6.3 K/mm3 (1.8-7.8); Neutrophils % 75.4 % (37.0-80.0); Platelet Count 199 K/mm3 (142-424); Red Blood Count 3.88 M/mm3 (4.20-5.40); Red Cell Distribution Width 14.3 % (11.5-17.5); White Blood Count 8.4 K/mm3 (4.8-10.8)
[2022-04-13 06:58] LABS: Potassium 4.1 mmoL/L (3.5-5.1)
[2022-04-13 06:59] LABS: Anion Gap 6.1 mEq/L (5-15); Blood Urea Nitrogen 17 mg/dl (7-17); Calcium 7.7 mg/dl (8.4-10.2); Carbon Dioxide 29 mmol/L (22.0-30.0); Chloride 107 mmol/L (98-107); Creatinine Clearance Estimated 115 mL/min (50-200); Estimated Glomerular Filt Rate 87 ml/min (>60); GFR (African American) 106 ML/MIN (>60); Glucose 183 mg/dl (74-100); Sodium 138 mmol/L (136-145)
[2022-04-13 07:16] LABS: Procalcitonin 0.152 ng/mL (0.0-2.0)
[2022-04-13 07:42] LABS: Hemoglobin A1C 11.2 % (4.0-6.0)
--- NOTE | 2022-04-13 07:52 | HMH.PHAINT1 ---
Pharmacy Intervention Comments: MEDICATION RECONCILIATION COMPLETED ON PATIENT USING EXTERNAL FILL HISTORY FROM PHARMACY AND LIST FROM PCP OFFICE. -EMILIA STARR, MARIELLAD
[2022-04-13 08:00] VITALS: BP 165/82; PULSE 85; RESP 18; TEMP 36.9; O2SAT 95
--- NOTE | 2022-04-13 08:42 | EXP.DC.SUM ---
General Admission date:: 04/12/22 Discharge date: 04/13/22 HPI HPI HPI: This is a 56-year-old female that presents to [facility] emergency department with concerns of fever and weakness. She reports she was seen as an outpatient 2 days ago with fever and placed on medication and she is not feeling better. In the ED she reports a cough that is occasionally productive of yellow sputum with no associated hemoptysis. She identifies increased shortness of air with activities that has progressed over the last 48 hours. She reports associated fever and chills but no diffuse rashes. She recalls no recent travel abroad. She denies syncope. Her past medical history is significant for tobacco dependence, COPD, diabetes, hypertension, chronic opioid and benzodiazepine therapy and hepatitis C (treatment na?ve). In the ED she is tachycardic with increased respiratory rate and febrile. Her labs identified leukocytoses with a lactic acidosis. Her chest x-ray is concerning for pneumonia. Blood cultures have been acquired and she has been started on broad-spectrum IV antibiotic therapy. Hospital Course Hospital Course Hospital Course: The patient was admitted to the medical floor with blood cultures acquired and started on broad-spectrum IV antibiotic therapy. Respiratory PCR identified enterovirus and negative COVID-19. Chest x-ray was concerning for viral process. A follow-up CT of the chest identified that the lungs are clear with cirrhosis (known hepatitis C) and splenomegaly. Her labs and inflammatory markers were trended and her white blood cell count was normal. She remained afebrile with stable vital signs and saturated appropriately on room air. Nursing staff reported that she ambulated in the room with no difficulty. With her improvement, no oxygen requirements, normal pulmonary imaging on CT and stable vital signs the patient will be discharged home to follow-up with her PCP in 1 week. Patient education provided on complete tobacco cessation and follow-up for her positive hepatitis C. Inhalers were provided on discharge. She will be discharged on a short course of antibiotic therapy and steroids for presumed bronchitis. I spent 35 minutes in [id number] time with the patient, case management and nursing staff concerning the discharge process. We discussed the admitting diagnoses and hospital course. We discussed identified improvement. The patient understands the importance of tobacco cessation and follow-up for her hepatitis C diagnoses. We reviewed inpatient studies and imaging. The patient voiced understanding on the importance of follow-up with her primary care provider and specialist(s). The patient plans to be compliant with the medication regimen prescribed and follow-up appointments. She understands that she can return to the emergency department with any sudden changes or concerns. Exam Data for Last 24 hours Vital signs and Labs for Last 24 Hours: Temp Pulse Resp BP Pulse Ox 98.4 F 85 18 165/82 H 95 04/13/22 08:00 04/13/22 08:00 04/13/22 08:00 04/13/22 08:00 04/13/22 08:00 Laboratory Results - last 24 hr 04/12/22 10:58: SARS-CoV-2 (PCR) Not detected, Influenza A Untype (PCR) Not detected, Influenza Type B (PCR) Not detected 04/12/22 10:58: POC Glucose 301 H* 04/12/22 10:58: Chlamy pneumoniae PCR Not detected, Adenovirus (PCR) Not detected, B. pertussis DNA (PCR) Not detected, Coronavirus OC43 (PCR) Not detected, Coronavirus HKU1 (PCR) Detected A, Coronavirus 229E (PCR) Not detected, SARS-CoV-2 (PCR) Not detected, Coronavirus NL63 (PCR) Not detected, Human Metapneumovir PCR Not detected, Influenza A (H1) PCR Not detected, Influ A (H1N1/09) PCR Not detected, Influenza A (H3) PCR Not detected, Influenza Type A (PCR) Not detected, Influenza Type B (PCR) Not detected, M. pneumoniae (PCR) Not detected, Parainfluenza 1 (PCR) Not detected, Parainfluenza 2 (PCR) Not detected, Parainfluenza 3 (PCR) Not detecte
--- NOTE | 2022-04-13 09:27 | SW/DCPLANNER ---
I spoke with this patient regarding plans once medically stable for discharge. Patient expressed that she does reside at a house in [place] with a roommate but is not happy in her current living situation. I did provide this patient information to contact the local Housing Authority to be added to their housing waiting list. I also offered patient information/assistance regarding homeless shelters and patient was not interested at this time. Patient stated that she would have transportation home. Patient is expected to discharge home today.
--- NOTE | 2022-04-13 09:53 | HMH.PHAINT1 ---
Pharmacy Intervention Comments: DISCHARGE MEDICATION COUNSELING PROVIDED. DISCUSSED THE FOLLOWING NEW PRESCRIPTIONS: -SYMBICORT (2 PUFFS TWICE DAILY, WAIT A MINUTE BETWEEN PUFFS, RINSE MOUTH AFTER USE) -CARVEDILOL (TWICE DAILY WITH FOOD, MAY CAUSE DIZZINESS, LIGHTHEADEDNESS, LOW BP, SLOWED HEART RATE) -COMBIVENT (EVERY 4 HOURS NEEDED, MAY CAUSE RESTLESSNESS, ELEVATED HEART RATE) -DOXYCYCLINE (TWICE DAILY, TAKE WITH FOOD, N/V/D POSSIBLE, RARE RISK OF RASH) -PREDNISONE (DAILY, TAKE WITH FOOD IN THE MORNING, MAY CAUSE INSOMNIA, N/V/D, ELEVATED BLOOD SUGAR) PATIENT VERBALIZED NO QUESTIONS AT THIS TIME.
--- NOTE | 2022-04-16 13:21 | CARE MANAGER ---
Attempted to contact patient and phone call is not allowed to that number. LATRICE Jama
== END 2022-04-13 10:23 | disposition home or self-care (01) ==
LOC: ER 14:56 → 2ND 15:38
PROVIDERS: Admitting Provider Family Medicine; Emergency Provider Emergency Medicine; PCP Emergency Medicine; Visit Provider Family Medicine
DX: J18.9 Pneumonia, unspecified organism (principal); J44.1 Chronic obstructive pulmonary disease with (acute) exacerbation; E11.649 Type 2 diabetes mellitus with hypoglycemia without coma; Z79.4 Long term (current) use of insulin; I10 Essential (primary) hypertension; E78.5 Hyperlipidemia, unspecified; B19.20 Unspecified viral hepatitis C without hepatic coma; Z79.899 Other long term (current) drug therapy
CPT/HCPCS: 36415; 71046; 71250; 80048; 80053; 82962; 83036; 83605; 83735; 84145; 85025; 87040; 87581; 87632; 87798; 94640; 99285; C9803; G0378; J0456; J0696; U0003; U0005

== ENCOUNTER → 2022-05-10 21:41 | Outpatient (CLI) | payer BC, SELFPAY ==
[2022-05-10 19:36] LABS: Basophils % 0.6 % (0.1-2.0); Eosinophils # 0.1 K/mm3 (0.0-0.4); Eosinophils % 1.7 % (0.1-12.0); Hematocrit 39.6 % (37.0-47.0); Hemoglobin 12.8 g/dL (12.2-16.2); Lymphocytes # 2.3 K/mm3 (0.7-4.5); Lymphocytes % 30.4 % (10-50); Mean Corpuscular HGB Conc 32.4 g/dL (31.8-35.4); Mean Corpuscular Hemoglobin 27.7 pg (27.0-31.2); Mean Corpuscular Volume 85.5 fl (81-99); Mean Platelet Volume 9.5 fl (7.4-10.4); Monocytes # 0.4 K/mm3 (0.1-1.0); Monocytes % 5.4 % (1.7-9.3); Neutrophils # 4.6 K/mm3 (1.8-7.8); Neutrophils % 61.9 % (37.0-80.0); Platelet Count 252 K/mm3 (142-424); Red Blood Count 4.62 M/mm3 (4.20-5.40); Red Cell Distribution Width 14.6 % (11.5-17.5); White Blood Count 7.5 K/mm3 (4.8-10.8)
[2022-05-10 20:03] LABS: Alanine Aminotransferase 40 U/L (12-78); Albumin Level 3.4 g/dl (3.5-5.0); Albumin/Globulin Ratio 1.1 (1.1-1.8); Alkaline Phosphatase 100 U/L (38-126); Anion Gap 7.3 mEq/L (5-15); Aspartate Amino Transferase 52 U/L (14-36); Bilirubin,Total 0.5 mg/dl (0.2-1.3); Blood Urea Nitrogen 15 mg/dl (7-17); Calcium 9.3 mg/dl (8.4-10.2); Carbon Dioxide 34 mmol/L (22.0-30.0); Chloride 101 mmol/L (98-107); Estimated Glomerular Filt Rate 75 ml/min (>60); GFR (African American) 90 ML/MIN (>60); Glucose 112 mg/dl (74-100); Potassium 4.3 mmoL/L (3.5-5.1); Sodium 138 mmol/L (136-145); Total Protein,Serum 6.4 g/dl (6.3-8.2)
[2022-05-12 13:59] LABS: HIV Screen 4th Generation wRfx Non Reactive (Non Reactive)
[2022-05-14 18:09] LABS: HCV Genotype Charge YES; Hepatitis C Genotype 3 (.)
[2022-05-17 22:54] LABS: Hep A Ab, Total NEGATIVE; Hepatitis B Surface Antigen NON REACTIVE
[2022-05-17 22:55] LABS: Hep B Core Ab, Total NEGATIVE; Hep B Surface Ab, Qual NEGATIVE; Hepatitis C Antibody REACTIVE
== END ==
PROVIDERS: PCP Nurse Practitioner Family; Visit Provider Nurse Practitioner Family
DX: B19.20 Unspecified viral hepatitis C without hepatic coma (principal)
CPT/HCPCS: 80053; 81596; 85025; 86703; 86704; 86706; 86708; 87340; 87380; 87522; 87902; G0432

== ENCOUNTER → 2022-08-13 13:58 | Outpatient (CLI) | payer BC, SELFPAY ==
[2022-08-13 15:29] LABS: Basophils % 0.6 % (0.1-2.0); Eosinophils # 0.2 K/mm3 (0.0-0.4); Eosinophils % 2.9 % (0.1-12.0); Hematocrit 36.5 % (37.0-47.0); Hemoglobin 11.5 g/dL (12.2-16.2); Mean Corpuscular HGB Conc 31.5 g/dL (31.8-35.4); Mean Corpuscular Hemoglobin 28.7 pg (27.0-31.2); Mean Corpuscular Volume 91.3 fl (81-99); Monocytes # 0.4 K/mm3 (0.1-1.0); Monocytes % 5.7 % (1.7-9.3); Neutrophils # 3.7 K/mm3 (1.8-7.8); Neutrophils % 58.9 % (37.0-80.0); Platelet Count 212 K/mm3 (142-424); Red Cell Distribution Width 15.2 % (11.5-17.5); White Blood Count 6.3 K/mm3 (4.8-10.8)
[2022-08-13 15:45] LABS: Alanine Aminotransferase 23 U/L (12-78); Albumin Level 3.4 g/dl (3.5-5.0); Albumin/Globulin Ratio 1.2 (1.1-1.8); Alkaline Phosphatase 112 U/L (38-126); Anion Gap 18.4 mEq/L (5-15); Aspartate Amino Transferase 29 U/L (14-36); Bilirubin,Total 0.2 mg/dl (0.2-1.3); Blood Urea Nitrogen 19 mg/dl (7-17); Calcium 8.3 mg/dl (8.4-10.2); Carbon Dioxide 29 mmol/L (22.0-30.0); Chloride 100 mmol/L (98-107); Estimated Glomerular Filt Rate 47 ml/min (>60); GFR (African American) 57 ML/MIN (>60); Globulin 2.8 g/dL (1.3-3.2); Glucose 202 mg/dl (74-100); Potassium 5.4 mmoL/L (3.5-5.1); Sodium 142 mmol/L (136-145); Total Protein,Serum 6.2 g/dl (6.3-8.2)
[2022-09-09 22:14] LABS: Hep B Core Ab, Total Negative; Hep B Surface Ab, Qual Negative
[2022-09-09 22:15] LABS: Hepatitis C Antibody Reactive
== END ==
PROVIDERS: PCP Emergency Medicine; Visit Provider Nurse Practitioner Family
DX: B18.2 Chronic viral hepatitis C (principal)
CPT/HCPCS: 36415; 80053; 85025; 86704; 86706; 87380; 87522

== ENCOUNTER → 2022-11-29 10:50 | Outpatient (CLI) | payer BC, SELFPAY ==
[2022-11-29 11:28] LABS: Basophils % 0.4 % (0.1-2.0); Eosinophils # 0.2 K/mm3 (0.0-0.4); Hematocrit 37.3 % (37.0-47.0); Hemoglobin 11.9 g/dL (12.2-16.2); Lymphocytes # 2.2 K/mm3 (0.7-4.5); Lymphocytes % 26.6 % (10-50); Mean Corpuscular HGB Conc 31.9 g/dL (31.8-35.4); Mean Corpuscular Hemoglobin 28.3 pg (27.0-31.2); Mean Corpuscular Volume 88.7 fl (81-99); Mean Platelet Volume 8.6 fl (7.4-10.4); Monocytes # 0.4 K/mm3 (0.1-1.0); Monocytes % 4.6 % (1.7-9.3); Neutrophils # 5.6 K/mm3 (1.8-7.8); Neutrophils % 66.4 % (37.0-80.0); Platelet Count 182 K/mm3 (142-424); Red Blood Count 4.21 M/mm3 (4.20-5.40); Red Cell Distribution Width 14.8 % (11.5-17.5); White Blood Count 8.4 K/mm3 (4.8-10.8)
[2022-11-29 11:45] LABS: Alanine Aminotransferase 22 U/L (12-78); Albumin Level 3.7 g/dl (3.5-5.0); Alkaline Phosphatase 118 U/L (38-126); Anion Gap 9.5 mEq/L (5-15); Aspartate Amino Transferase 23 U/L (14-36); Bilirubin,Direct 0.1 mg/dl (0.0-0.4); Bilirubin,Indirect 0.1 mg/dL (0.0-0.9); Bilirubin,Total 0.2 mg/dl (0.2-1.3); Bilirubin,Unconjugated 0.2 mg/dL (0.0-1.1); Blood Urea Nitrogen 13 mg/dl (7-17); Calcium 8.8 mg/dl (8.4-10.2); Carbon Dioxide 32 mmol/L (22.0-30.0); Chloride 101 mmol/L (98-107); Chol/HDL Ratio 5.8 (1-3.5); Cholesterol 184 mg/dl (140-200); Estimated Glomerular Filt Rate 74 ml/min (>60); GFR (African American) 90 ML/MIN (>60); Glucose 264 mg/dl (74-100); HDL Cholesterol 32 mg/dl (40-60); Magnesium 1.7 mg/dl (1.6-2.3); Potassium 4.5 mmoL/L (3.5-5.1); Sodium 138 mmol/L (136-145); Total Protein,Serum 6.9 g/dl (6.3-8.2); Triglycerides 191 mg/dl (30-150); VLDL Cholesterol 38 mg/dL (0-40)
[2022-11-29 11:56] LABS: Direct LDL Cholesterol 117.65 mg/dL (100-129)
[2022-11-29 12:03] LABS: Free T4 (Free Thyroxine) 1.11 ng/dl (0.78-2.19)
[2022-11-29 12:16] LABS: Thyroid Stimulating Hormone 1.54 uIU/mL (0.465-4.68)
== END ==
PROVIDERS: PCP Emergency Medicine; Visit Provider Nurse Practitioner
DX: R42 Dizziness and giddiness (principal); I10 Essential (primary) hypertension; E78.5 Hyperlipidemia, unspecified; R60.0 Localized edema; R94.31 Abnormal electrocardiogram [ECG] [EKG]; Z79.899 Other long term (current) drug therapy
CPT/HCPCS: 36415; 80048; 80061; 80076; 83735; 84439; 84443; 85025

== ENCOUNTER → 2022-12-11 11:00 | Outpatient (CLI) | payer BC, SELFPAY ==
[2022-12-11 23:25] LABS: Barbiturates Screen,Urine Negative ng/ml (<200)
[2022-12-11 23:26] LABS: Benzodiazepines Screen,Urine Negative ng/ml (<200); Cannabinoid Screen,Urine Positive ng/ml (<50)
[2022-12-11 23:27] LABS: Cocaine Screen,Urine Negative ng/ml (<300)
[2022-12-11 23:28] LABS: Methadone Screen,Urine Negative ng/ml (<300); Opiate Screen,Urine Negative ng/ml (<300)
[2022-12-11 23:29] LABS: Phencyclidine Screen,Urine Negative ng/ml (<25)
[2022-12-11 23:54] LABS: Amphetamine/Metha Screen,Urine Positive ng/ml (<1000)
== END ==
PROVIDERS: PCP Emergency Medicine; Visit Provider Emergency Medicine
DX: F41.9 Anxiety disorder, unspecified (principal); Z79.899 Other long term (current) drug therapy
CPT/HCPCS: 80305

== ENCOUNTER → 2023-01-15 17:02 | Outpatient (CLI) | payer BC, SELFPAY ==
[2023-01-15 17:18] LABS: Amphetamine/Metha Screen,Urine Negative ng/ml (<1000); Barbiturates Screen,Urine Negative ng/ml (<200)
[2023-01-15 17:19] LABS: Benzodiazepines Screen,Urine Negative ng/ml (<200)
[2023-01-15 17:20] LABS: Cannabinoid Screen,Urine Negative ng/ml (<50); Cocaine Screen,Urine Negative ng/ml (<300)
[2023-01-15 17:21] LABS: Methadone Screen,Urine Negative ng/ml (<300)
[2023-01-15 17:22] LABS: Opiate Screen,Urine Negative ng/ml (<300); Phencyclidine Screen,Urine Negative ng/ml (<25)
== END ==
PROVIDERS: PCP Emergency Medicine; Visit Provider Emergency Medicine
DX: Z79.899 Other long term (current) drug therapy (principal)
CPT/HCPCS: 80305

== ENCOUNTER → 2023-02-21 07:04 | Outpatient (CLI) | payer BC, SELFPAY ==
[2023-02-21 19:40] LABS: Amphetamine/Metha Screen,Urine Negative ng/ml (<1000)
[2023-02-21 19:41] LABS: Barbiturates Screen,Urine Negative ng/ml (<200); Benzodiazepines Screen,Urine Negative ng/ml (<200)
[2023-02-21 19:42] LABS: Cannabinoid Screen,Urine Negative ng/ml (<50)
[2023-02-21 19:43] LABS: Basophils % 0.3 % (0.1-2.0); Cocaine Screen,Urine Negative ng/ml (<300); Eosinophils # 0.1 K/mm3 (0.0-0.4); Eosinophils % 1.1 % (0.1-12.0); Hematocrit 46.1 % (37.0-47.0); Hemoglobin 15.1 g/dL (12.2-16.2); Lymphocytes % 21.3 % (10-50); Mean Corpuscular HGB Conc 32.7 g/dL (31.8-35.4); Mean Corpuscular Hemoglobin 28.2 pg (27.0-31.2); Mean Corpuscular Volume 86.1 fl (81-99); Mean Platelet Volume 10.7 fl (7.4-10.4); Methadone Screen,Urine Negative ng/ml (<300); Monocytes # 0.4 K/mm3 (0.1-1.0); Monocytes % 4.5 % (1.7-9.3); Neutrophils # 6.9 K/mm3 (1.8-7.8); Neutrophils % 72.8 % (37.0-80.0); Platelet Count 193 K/mm3 (142-424); Red Blood Count 5.36 M/mm3 (4.20-5.40); Red Cell Distribution Width 14.1 % (11.5-17.5); White Blood Count 9.5 K/mm3 (4.8-10.8)
[2023-02-21 19:44] LABS: Opiate Screen,Urine Negative ng/ml (<300); Phencyclidine Screen,Urine Negative ng/ml (<25)
[2023-02-21 20:02] LABS: Hemoglobin A1C > 14.0 % (4.0-6.0)
[2023-02-21 20:53] LABS: Chloride 94 mmol/L (98-107); Potassium 3.9 mmoL/L (3.5-5.1); Sodium 129 mmol/L (136-145)
[2023-02-21 20:55] LABS: Blood Urea Nitrogen 14 mg/dl (7-17); Estimated Glomerular Filt Rate 87 ml/min (>60); GFR (African American) 105 ML/MIN (>60)
[2023-02-21 20:56] LABS: Alanine Aminotransferase 16 U/L (12-78); Albumin Level 3.7 g/dl (3.5-5.0); Albumin/Globulin Ratio 1.2 (1.1-1.8); Alkaline Phosphatase 159 U/L (38-126); Anion Gap 12.9 mEq/L (5-15); Aspartate Amino Transferase 25 U/L (14-36); Bilirubin,Total 0.5 mg/dl (0.2-1.3); Calcium 8.6 mg/dl (8.4-10.2); Carbon Dioxide 26 mmol/L (22.0-30.0); Total Protein,Serum 6.7 g/dl (6.3-8.2)
[2023-02-21 21:05] LABS: Glucose 487 mg/dl (74-100)
== END ==
PROVIDERS: PCP Internal Medicine; Visit Provider Internal Medicine
DX: F41.9 Anxiety disorder, unspecified (principal); E11.9 Type 2 diabetes mellitus without complications; Z79.4 Long term (current) use of insulin; Z79.899 Other long term (current) drug therapy
CPT/HCPCS: 80053; 80305; 82043; 83036; 85025

== ENCOUNTER 2023-06-13 19:20 | Outpatient (CLI) | payer BC, SELFPAY ==
[2023-06-13 19:39] LABS: Basophils # 0.1 K/mm3 (0-0.2); Eosinophils # 0.1 K/mm3 (0.0-0.4); Eosinophils % 0.9 % (0.1-12.0); Hematocrit 43.5 % (37.0-47.0); Hemoglobin 13.9 g/dL (12.2-16.2); Lymphocytes # 2.2 K/mm3 (0.7-4.5); Lymphocytes % 22.7 % (10-50); Mean Corpuscular Hemoglobin 28.6 pg (27.0-31.2); Mean Corpuscular Volume 89.5 fl (81-99); Mean Platelet Volume 9.5 fl (7.4-10.4); Monocytes # 0.5 K/mm3 (0.1-1.0); Neutrophils # 6.7 K/mm3 (1.8-7.8); Neutrophils % 70.4 % (37.0-80.0); Platelet Count 221 K/mm3 (142-424); Red Blood Count 4.86 M/mm3 (4.20-5.40); Red Cell Distribution Width 14.9 % (11.5-17.5); White Blood Count 9.6 K/mm3 (4.8-10.8)
[2023-06-13 19:54] LABS: Chloride 97 mmol/L (98-107); Sodium 133 mmol/L (136-145)
[2023-06-13 19:55] LABS: Potassium 4.6 mmoL/L (3.5-5.1)
[2023-06-13 19:57] LABS: Alanine Aminotransferase 16 U/L (12-78); Albumin Level 3.8 g/dl (3.5-5.0); Albumin/Globulin Ratio 1.4 (1.1-1.8); Alkaline Phosphatase 139 U/L (38-126); Anion Gap 14.6 mEq/L (5-15); Aspartate Amino Transferase 20 U/L (14-36); Bilirubin,Total 0.4 mg/dl (0.2-1.3); Blood Urea Nitrogen 22 mg/dl (7-17); Carbon Dioxide 26 mmol/L (22.0-30.0); Estimated Glomerular Filt Rate 65 ml/min (>60); GFR (African American) 79 ML/MIN (>60); Globulin 2.8 g/dL (1.3-3.2); Iron 76 ug/dL (37-170); Total Protein,Serum 6.6 g/dl (6.3-8.2)
[2023-06-13 20:09] LABS: Erythrocyte Sedimentation Rate 45 mm/hr (0-30)
[2023-06-13 20:36] LABS: Glucose 433 mg/dl (74-100)
[2023-06-13 20:38] LABS: Ferritin 40.5 ng/ml (11.1-264)
[2023-06-13 20:49] LABS: Total Iron Binding Capacity 328 ug/dL (265-497)
[2023-06-13 20:51] LABS: Hemoglobin A1C 11.2 % (4.0-6.0)
[2023-06-13 21:59] LABS: C-Reactive Protein 4.2 mg/L (0-4)
[2023-06-17 14:15] LABS: HBsAg Screen Negative (Negative); HCV Ab Reactive (Non Reactive); Hep A Ab, IGM Negative (Negative); Hep B Core Ab, IgM Negative (Negative)
== END 2023-06-13 23:59 ==
LOC: LAB.DROPOF 19:21
PROVIDERS: PCP Internal Medicine; Visit Provider Internal Medicine
DX: R53.83 Other fatigue (principal); B34.9 Viral infection, unspecified; F32.A Depression, unspecified; B18.2 Chronic viral hepatitis C; F12.90 Cannabis use, unspecified, uncomplicated; F15.10 Other stimulant abuse, uncomplicated; R80.9 Proteinuria, unspecified; E55.9 Vitamin D deficiency, unspecified; K74.60 Unspecified cirrhosis of liver; S22.070D Wedge compression fracture of T9-T10 vertebra, subsequent encounter for fracture with routine healing; R73.09 Other abnormal glucose; Z79.899 Other long term (current) drug therapy
CPT/HCPCS: 80053; 80074; 82728; 83036; 83540; 83550; 85025; 85651; 86140; 87522; 87902

== ENCOUNTER 2023-10-25 16:31 | Inpatient (IN) | payer BC, SELFPAY ==
[2023-10-25] VITALS (11 sets, daily range): BP systolic 162–197; BP diastolic 69–96; PULSE 104–141; RESP 24–36; TEMP 36.7–37.4; O2SAT 95–97; BMI 28.3
[2023-10-25 16:41] LABS: VBG Base Excess -6.3 mmol/L (-2.4-2.3); VBG HCO3 19.4 mmol/L (23-30); VBG Oxygen Saturation 94.4 % (50-70); VBG PCO2 36.2 mmol/L (35-51); VBG PH 7.35 mmol/L (7.31-7.41); VBG PO2 70.8 mmol/L (28-40); VBG Total CO2 20.5 mmol/L (23-27)
[2023-10-25 16:42] LABS: Lactate Venous 3.3 mmol/L (0.4-2.0)
--- NOTE | 2023-10-25 16:45 | PC.NURSE ---
Dr. Boyle at BS for pt eval
--- NOTE | 2023-10-25 16:46 | CT_ITS ---
PROCEDURE INFORMATION: Exam: CTA Chest With Contrast Exam date and time: 10/25/2023 5:44 PM Age: 57 years old Clinical indication: Injury or trauma; Fall; Blunt trauma (contusions or hematomas); Additional info: Multiple falls, back pain, SOA, weakness TECHNIQUE: Imaging protocol: Computed tomographic angiography of the chest with contrast. Exam focused on the arteries. 3D rendering (Not supervised by radiologist): MIP and/or 3D reconstructed images were created by the technologist. Radiation optimization: All CT scans at this facility use at least one of these dose optimization techniques: automated exposure control; mA and/or kV adjustment per patient size (includes targeted exams where dose is matched to clinical indication); or iterative reconstruction. Contrast material: ISOVUE; Contrast volume: 100 ml; Contrast route: INTRAVENOUS (IV); COMPARISON: CT CHEST WO CON 04/12/2022 4:17 PM FINDINGS: Pulmonary arteries: Normal. No pulmonary emboli. Aorta: Regions of atherosclerotic vascular calcification involving the aortic arch. Lungs: See Pleural spaces finding. Pleural spaces: 17 x 9 mm region of pleural based nodularity at the right lung base. Findings may correspond to focal region of atelectasis and mucous plugging. Findings are however new compared with the previous study. Heart: Unremarkable. No cardiomegaly. No pericardial effusion. Coronary arteries: Coronary artery calcification Lymph nodes: nonspecific mediastinal lymph nodes Bones/joints: Thoracic spondylosis with multilevel disc degeneration. The region of sclerosis with subtle cortical irregularity involving the proximal body of the sternum. Findings suggestive of subacute-chronic post traumatic change. Clinically correlate no definitive findings to suggest acute injury. Soft tissues: Unremarkable. IMPRESSION: 1. 17 x 9 mm region of pleural based nodularity at the right lung base. Findings may correspond to focal region of atelectasis and mucous plugging. Findings are however new compared with the previous study. For both low risk and high risk patients, consider CT Chest at 3 months, PET/CT, or biopsy. (Reference: Reynold) 2. Region of sclerosis with subtle cortical irregularity involving the proximal body of the sternum. Findings suggestive of subacute-chronic post traumatic change. Clinically correlate. REFERENCES: Reynold Kolb, the the et al. Guidelines for Management of Incidental Pulmonary Nodules Detected on CT Images: From the Fleischner Society 2017. Radiology. 2017;284(1):228-243.
--- NOTE | 2023-10-25 16:46 | CT_ITS ---
PROCEDURE INFORMATION: Exam: CT Cervical Spine Without Contrast Exam date and time: 10/25/2023 5:37 PM Age: 57 years old Clinical indication: Neck pain; Additional info: Multiple falls, back pain, SOA, weakness TECHNIQUE: Imaging protocol: Computed tomography of the cervical spine without contrast. Radiation optimization: All CT scans at this facility use at least one of these dose optimization techniques: automated exposure control; mA and/or kV adjustment per patient size (includes targeted exams where dose is matched to clinical indication); or iterative reconstruction. COMPARISON: CT CERVICAL SPINE WO CON 02/19/2022 7:37 PM FINDINGS: Bones: No evident fracture. Degenerative changes of the C-spine most pronounced at C6-C7. No fracture evident. Alignment and vertebral body heights are intact. Sensitivity for fracture limited due to significant motion artifact. Lungs: Lung apices are normal. Soft tissues: Unremarkable. IMPRESSION: Degenerative changes. No acute abnormality with above limitation due to motion artifact.
--- NOTE | 2023-10-25 16:46 | CT_ITS ---
PROCEDURE INFORMATION: Exam: CTA Abdomen and Pelvis With Contrast Exam date and time: 10/25/2023 5:44 PM Age: 57 years old Clinical indication: Injury or trauma; Fall; Blunt trauma; Lower abdominal or back area; Bilateral; Additional info: Multiple falls, back pain, SOA, weakness TECHNIQUE: Imaging protocol: Computed tomographic angiography of the abdomen and pelvis with contrast. Exam focused on the arteries. 3D rendering (Not supervised by radiologist): MIP and/or 3D reconstructed images were created by the technologist. Radiation optimization: All CT scans at this facility use at least one of these dose optimization techniques: automated exposure control; mA and/or kV adjustment per patient size (includes targeted exams where dose is matched to clinical indication); or iterative reconstruction. Contrast material: ISOVUE; Contrast volume: 100 ml; Contrast route: INTRAVENOUS (IV); COMPARISON: CT ANGIO CHEST PE PROTOCOL 10/25/2023 5:44 PM FINDINGS: Aorta: Scattered regions of atherosclerotic vascular calcification within the abdominal aorta and common iliac arteries. Celiac trunk and mesenteric arteries: No occlusion or significant stenosis. Renal arteries: No occlusion or significant stenosis. Right iliac arteries: No occlusion or significant stenosis. Left iliac arteries: No occlusion or significant stenosis. Liver: .Decreased density throughout the liver compatible with hepatic steatosis. Hepatomegaly Gallbladder and biliary ducts: Gallbladder unremarkable Pancreas: Pancreas unremarkable Spleen: Splenomegaly Adrenal glands: Adrenal glands unremarkable. Kidneys and ureters: No hydronephrosis. Stomach and bowel: Colonic diverticulosis. No evidence of diverticulitis. Appendix: No evidence of appendicitis. Intraperitoneal space: Unremarkable. No free air. No significant fluid collection. Lymph nodes: Nonspecific retroperitoneal lymph nodes Urinary bladder: Small amount of air within anterior and superior portion of the bladder. Clinically correlate regarding recent catheterization. Reproductive: Unremarkable as visualized. Bones/joints: Lumbar spondylosis with multilevel disc degeneration. Degenerative anterolisthesis L4 with respect L5. Severe spinal stenosis. Soft tissues: Unremarkable. IMPRESSION: 1. Lumbar spondylosis with multilevel disc degeneration. Degenerative anterolisthesis L4 with respect L5. Severe spinal stenosis. 2. Hepatosplenomegaly. 3. Please see above report for discussion of nonacute findings
--- NOTE | 2023-10-25 16:46 | CT_ITS ---
PROCEDURE INFORMATION: Exam: CT Thoracic Spine Without Contrast Exam date and time: 10/25/2023 5:39 PM Age: 57 years old Clinical indication: Pain in thoracic spine; Additional info: Multiple falls, back pain, SOA, weakness TECHNIQUE: Imaging protocol: Computed tomography of the thoracic spine without contrast. Radiation optimization: All CT scans at this facility use at least one of these dose optimization techniques: automated exposure control; mA and/or kV adjustment per patient size (includes targeted exams where dose is matched to clinical indication); or iterative reconstruction. COMPARISON: CT CERVICAL SPINE WO CON 10/25/2023 5:37 PM FINDINGS: Bones/joints: Thoracic spondylosis with multilevel disc degeneration. Soft tissues: Unremarkable. IMPRESSION: No evidence of acute osseous injury.
--- NOTE | 2023-10-25 16:46 | CT_ITS ---
PROCEDURE INFORMATION: Exam: CT Head Without Contrast Exam date and time: 10/25/2023 5:35 PM Age: 57 years old Clinical indication: Other: Falls/gen weakness; Additional info: Multiple falls, back pain, SOA, weakness TECHNIQUE: Imaging protocol: Computed tomography of the head without contrast. Radiation optimization: All CT scans at this facility use at least one of these dose optimization techniques: automated exposure control; mA and/or kV adjustment per patient size (includes targeted exams where dose is matched to clinical indication); or iterative reconstruction. COMPARISON: CT HEAD/BRAIN WO CON 02/19/2022 7:35 PM FINDINGS: Brain: No intracranial hemorrhage. Generalized atrophic changes of the ventricles and subarachnoid spaces. Moderate chronic small-vessel ischemic changes with mild interval progression. No mass, mass effect or midline shift. Intracranial atherosclerotic changes are noted. Interval development of a small area of encephalomalacia in the anteromedial left frontal lobe. Cerebral ventricles: See Brain finding. Paranasal sinuses: Visualized sinuses are unremarkable. No fluid levels. Mastoid air cells: Visualized mastoid air cells are well aerated. Bones: Unremarkable. No acute fracture. Soft tissues: Unremarkable. IMPRESSION: Chronic changes as above with mild interval progression of the chronic small-vessel ischemic changes and interval development of left frontal lobe encephalomalacia that may reflect old infarct.. No acute intracranial abnormality.
--- NOTE | 2023-10-25 16:46 | CT_ITS ---
PROCEDURE INFORMATION: Exam: CT Lumbar Spine Without Contrast Exam date and time: 10/25/2023 5:41 PM Age: 57 years old Clinical indication: Injury or trauma; Fall; Blunt trauma (contusions or hematomas); Additional info: Multiple falls, back pain, SOA, weakness TECHNIQUE: Imaging protocol: Computed tomography of the lumbar spine without contrast. Radiation optimization: All CT scans at this facility use at least one of these dose optimization techniques: automated exposure control; mA and/or kV adjustment per patient size (includes targeted exams where dose is matched to clinical indication); or iterative reconstruction. COMPARISON: CR XR LUMBAR SPINE MIN 4V 12/16/2018 10:51 AM FINDINGS: Bones/joints: Lumbar spondylosis with multilevel disc degeneration. Degenerative anterolisthesis L4 with respect to L5. Severe spinal stenosis. Findings incompletely visualized. Changes of vacuum disc desiccation L1-L2 mild irregularity of the inferior L1 endplate. Findings are new since the 12/16/2018 examination. Soft tissues: Unremarkable. IMPRESSION: 1. Degenerative anterolisthesis L4 with respect to L5. Severe spinal stenosis. Findings incompletely visualized. 2. Could not exclude acute compression fracture deformity at L1. 3. Recommend follow-up with magnetic resonance imaging for further evaluation of endplate deformities at L1 as well as L4-L5 spinal stenosis.
[2023-10-25 16:51] LABS: Eosinophils % 0.6 % (0.1-12.0); Hematocrit 39.3 % (37.0-47.0); Hemoglobin 12.2 g/dL (12.2-16.2); Lymphocytes # 0.9 K/mm3 (0.7-4.5); Mean Corpuscular HGB Conc 31.1 g/dL (31.8-35.4); Mean Corpuscular Hemoglobin 28.5 pg (27.0-31.2); Mean Corpuscular Volume 91.8 fl (81-99); Monocytes # 0.2 K/mm3 (0.1-1.0); Neutrophils # 1.5 K/mm3 (1.8-7.8); Neutrophils % 56.4 % (37.0-80.0); Platelet Count 172 K/mm3 (142-424); Red Blood Count 4.28 M/mm3 (4.20-5.40); White Blood Count 2.7 K/mm3 (4.8-10.8)
--- NOTE | 2023-10-25 16:53 | ED_ITS ---
Discharge Plan Disposition Patient Disposition: Admitted Condition: Good Clinical Impressions Clinical Impression: Sepsis, Pneumonia, Hyperglycemia, Spinal stenosis Discharge ED Provider: Trisha Boyle General Adult HPI General Chief complaint: Weakness Stated complaint: Weakness Time Seen by Provider: 10/25/23 16:38 Mode of Arrival: EMS Source of Information: Patient and EMS Limitations: No Limitations Description of Symptoms (Recalled from ER Triage Doc. by RN): pt states both legs arent working that they hurt and are tingling and numb bc her sugar is out of control bc her meds were stopped by pcp, pt states she just wanted her filomena's and he wouldnt give them to her. per ems fbs monitor read high History of Present Illness HPI narrative: This patient is a 57-year-old female with a history of insulin-dependent type 2 diabetes, hypertension, hyperlipidemia, hepatitis C, COPD, generalized anxiety, chronic benzodiazepine and opioid dependence presenting to the emergency department for evaluation with concern for high blood sugar at home, generalized weakness, frequent falls. She states that she saw her primary care doctor, Dr. Fairchild and was taken off all her medicines including her diabetes oral medications and insulin. She states that he took her off of everything. She explains that she is not sure why. Since then, she states that her blood sugars been through the roof, she is been falling all over the place, and her legs do not work. She states will they do work, but I am not able to walk very well without falling become weak. She denies any numbness, tingling, new incontinence, retention, or other concerns. On medical record review, I see that she had complained to her primary care provider that all of her medications were stolen and that she had failed a drug screen in clinic, so no controlled substance were refilled at that time. They noted that she does have a history of methamphetamine use in the past as well as chronic back pain on that note. Patient expresses that most of her symptoms are because she does not have her gabapentin. Patient arrives by EMS who noted that her blood sugar read high. Related Data Home Medications ?Medication ?Instructions ?Recorded ?Confirmed aspirin 81 mg tablet,delayed 81 mg PO DAILY [facility] 04/12/22 08/29/23 release Previous Rx's ?Medication ?Instructions ?Recorded blood sugar diagnostic (Accu-Chek #100 ea 05/09/22 Guide test strips) blood-glucose meter (Accu-Chek #1 ea 05/09/22 Guide Glucose Meter) blood sugar diagnostic (Blood #50 ea 05/10/22 Glucose Test strips) blood-glucose meter (Blood Glucose #1 05/10/22 Monitoring kit) blood-glucose meter,continuous #1 ea 12/11/22 (Dexcom G6 Caramel Candy Maker) blood-glucose sensor (Dexcom G6 #3 ea 12/11/22 Sensor device) blood-glucose transmitter (Dexcom #1 ea 12/11/22 G6 Transmitter device) citalopram 40 mg tablet 40 mg PO DAILY Depression #90 tabs 02/21/23 insulin lispro 100 unit/mL 14 unit (0.14 mL) SQ TID Diabetes 02/21/23 subcutaneous pen (Humalog KwikPen #15 mL (U-100) Insulin) lancets (Accu-Chek Softclix #200 ea 02/21/23 Lancets) lancets 30 gauge #200 ea 02/21/23 pen needle, diabetic 31 gauge x #1,200 ea 02/21/23/16 (BD Ultra-Fine Mini Pen Needle) sitagliptin phosphate 100 mg 100 mg PO DAILY Diabetes #90 tabs 02/21/23 tablet (Januvia) glimepiride 1 mg tablet See Rx Instructions .Route 08/02/23 .COMPLEX #90 tabs insulin glargine 100 unit/mL (3 See Rx Instructions .Route 08/02/23 mL) subcutaneous pen (Lantus .COMPLEX #15 mL Solostar U-100 Insulin) losartan 25 mg tablet See Rx Instructions .Route 08/02/23 .COMPLEX #30 tabs simvastatin 20 mg tablet See Rx Instructions .Route 08/02/23 .COMPLEX #90 tabs metformin 1,000 mg tablet See Rx Instructions .Route 08/26/23 .COMPLEX #60 tabs Allergies Allergy/AdvReac Type Severity Reaction Status Date / Time No Known Allergies Allergy Verified 08/29/23 11:38 [facility] Disclaimer: The information contained in this section may have been updated after the patient was seen, as this information can be updated by other users. Medical History Abnormal electrocardiogram [ECG] [EKG] Hyperlipidemia Chronically on benzodiazepine therapy Chronic, continuous use of opioids Generalized anxiety disorder COPD (chronic obstructive pulmonary disease) BMI over 35 HCV (hepatitis C virus) Neuropathy HTN (hypertension) Diabetes Surgical History History of colonoscopy Family History Mother COPD (chronic obstructive pulmonary disease) Family history of diabetes mellitus type I Father COPD (chronic obstructive pulmonary disease) Social History Smoking Status: Current every day smoker tobacco type: cigarettes years smoked: 35 quit status: considering quitting alcohol intake: never substance use type: denies use and marijuana current occupational status: disabled Travel in the last 8 weeks: None caregiver/support person: No household members: friend(s) housing: house lives independently: Yes (with roommate) marital status: number of children: 0 education level: high school caffeine: Yes (2-3 daily) alvaro/yazdanism: Uatsdin ROS Obtained: Yes All systems reviewed & no additional complaints except as documented Physical Exam General General appearance: alert, in no apparent distress and obese Head Head exam: atraumatic and normocephalic Eye Eye exam: Present normal appearance, PERRL and EOMI ENT ENT exam: Present normal exam, normal oropharynx, mucous membranes moist and normal external ear exam Neck Neck exam: Present normal inspection, full ROM and trachea midline; Absent tenderness Chest Chest inspection: Present normal inspection and symmetric chest wall rise; Absent tenderness Respiratory Respiratory exam: Present normal lung sounds bilaterally; Absent respiratory distress, wheezes, stridor or accessory muscle use Cardiovascular Cardiovascular exam: Present normal rhythm and tachycardia Abdominal Exam Abdominal exam: Present soft; Absent distention, tenderness or guarding Extremities Exam Extremities exam: Present normal inspection, full ROM and normal capillary refill; Absent tenderness or edema Back Exam Back exam: Present normal inspection and full ROM; Absent tenderness Neurological Exam Neurological exam: Present alert, oriented X3, CN II-XII intact, normal gait and other (Intact sensation in the bilateral lower extremities, patient does have 4-5 strength bilaterally which are symmetric.) Psychiatric Psychiatric exam: Present agitated Skin Skin exam: Present warm and dry Medical Decision Making Medical Records Medical records reviewed: Yes I reviewed the patient's medical records. Edd Inquiry Pt receiving controlled substance: No Vital Signs: 10/25/23 16:31 10/25/23 16:43 10/25/23 17:00 Temperature 98.0 F Temperature Source Oral Pulse Rate 115 H 104 H Pulse Rate [Left Radial] 106 H Respiratory Rate 29 H 26 H 29 H Blood Pressure 166/89 H 168/83 H Blood Pressure [Right Arm] 166/89 H Blood Pressure Mean Blood Pressure Mean [Right Arm] 114 Blood Pressure Source Blood Pressure Position 02 Sat by Pulse Oximetry 96 97 95 Oxygen Delivery Method Room Air Room Air Room Air 10/25/23 18:03 10/25/23 18:30 10/25/23 19:00 Temperature Temperature Source Pulse Rate 120 H 121 H 133 H Pulse Rate [Left Radial] Respiratory Rate 24 33 H 34 H Blood Pressure 197/77 H 182/77 H 165/79 H Blood Pressure [Right Arm] Blood Pressure Mean 107 Blood Pressure Mean [Right Arm] Blood Pressure Source Blood Pressure Position 02 Sat by Pulse Oximetry 97 96 97 Oxygen Delivery Method Room Air Room Air 10/25/23 19:15 10/25/23 19:30 10/25/23 20:00 Temperature 99.4 F Temperature Source Oral Pulse Rate 141 H 126 H 121 H Pulse Rate [Left Radial] Respiratory Rate 36 H 35 H 26 H Blood Pressure 162/72 H 162/69 H Blood Pressure [Right Arm] Blood Pressure Mean 102 100 Blood Pressure Mean [Right Arm] Blood Pressure Source Blood Pressure Position 02 Sat by Pulse Oximetry 97 96 96 Oxygen Delivery Method Room Air Room Air 10/25/23 20:32 Temperature 99.4 F Temperature Source Oral Pulse Rate 122 H Pulse Rate [Left Radial] Respiratory Rate 26 H Blood Pressure 169/96 H Blood Pressure [Right Arm] Blood Pressure Mean Blood Pressure Mean [Right Arm] Blood Pressure Source Automatic Cuff Blood Pressure Position Supine 02 Sat by Pulse Oximetry Oxygen Delivery Method Room Air Lab Data Lab results reviewed: Yes I reviewed the patient's lab results. Lab Results 10/25/23 16:38: VBG pH 7.35, VBG pCO2 36.2, VBG pO2 70.8 H, VBG HCO3 19.4 L, VBG Total CO2 20.5 L, VBG O2 Saturation 94.4 H, VBG Base Excess -6.3 L, VBG Lactic Acid 3.3 H 10/25/23 16:40: WBC 2.7 L, RBC 4.28, Hgb 12.2, Hct 39.3, MCV 91.8, MCH 28.5, M CHC 31.1 L, RDW 15.0, Plt Count 172, MPV 9.0, Neut % (Auto) 56.4, Lymph % (Auto) 33.0, [place] % (Auto) 9.0, Eos % (Auto) 0.6, Baso % (Auto) 1.0, Neut # (Auto) 1.5 L, Lymph # (Auto) 0.9, [place] # (Auto) 0.2, Eos # (Auto) 0.0, Baso # (Auto) 0.0, PT 10.1, INR 0.89 L, APTT 24.7, Sodium 126 L, Potassium 4.1, Chloride 96 L, Carbon Dioxide 23, Anion Gap 11.1, BUN 17, Creatinine 0.90, Estimated Creat Clear 76, Estimated GFR 65, Est GFR ( Amer) 79, Glucose 843 H*, Calcium 8.6, Phosphorus 4.2, Magnesium 1.7, Total Bilirubin 0.5, AST 30, ALT 30, A lkaline Phosphatase 156 H, Troponin I < 0.01, Total Protein 6.6, Albumin 3.5, Globulin 3.1, Albumin/Globulin Ratio 1.1, Lipase 177, TSH 0.59, Thyroxine (T4) 6.4, Plasma/Serum Alcohol < 10, Acetone Level None detected 10/25/23 17:07: Urine Color Yellow, Urine Appearance Slightly cloudy, Urine pH 6.0, Ur Specific [place] 1.010, Urine Protein 2+, Urine Glucose (UA) 3+, Urine Ketones Negative, Urine Blood 2+, Urine Nitrate Negative, Urine Bilirubin Negative, Urine Urobilinogen 0.2, Ur Leukocyte Esterase Negative, Urine RBC 10- 20, Urine WBC Occasional, Ur Squamous Epith Cells 3-5, Urine Bacteria Trace 10/25/23 17:09: SARS-CoV-2 (PCR) Not detected, Influenza A Untype (PCR) Not detected, Influenza Type B (PCR) Not detected 10/25/23 18:03: Urine Opiates Screen Negative, Urine Methadone Screen Negative, Ur Barbituates Screen Negative, Ur Phencyclidine Scrn Negative, Ur Amphetamines Screen Negative, U Benzodiazepines Scrn Negative, Urine Cocaine Screen Negative, U Marijuana (THC) Screen Positive H 10/25/23 16:40 10/25/23 16:40 Orders (Tests/Meds): ED MEDICATIONS Generic Name Dose Route Start Last Admin Trade Name Freq PRN Reason Stop Dose Admin Lactated Ringer's 1,430 mls @ 715 mls/hr 10/25/23 19:50 10/25/23 19:57 Lactated Ringer's 1000 Ml Bag 30 ml/kg infuse over 2 hr (1430 ml) 10/25/23 21:49 715 mls/hr IV Administration .Q2H ONE Vancomycin/PEG/NADA/Lysine/Water 1.25 gm in 250 mls @ 125 mls/hr 10/25/23 20:00 10/25/23 19:57 Vancomycin 1.25gm/250ml (Peg) Premix IV 10/25/23 21:59 125 mls/hr ONCE ONE Administration Insulin Human Lispro 0 unit 10/25/23 21:00 Humalog 100 Units/Ml 10ml Vial (Ssi) SQ 11/24/23 20:59 ACHS [facility] Protocol Miscellaneous 1 each 10/25/23 20:00 10/25/23 19:54 Vancomycin Consult Request NOTAPPLIC 11/24/23 19:59 1 each CONSULT PHARMACY [facility] Administration Discontinued Medications Generic Name Dose Route Start Last Admin Trade Name Ismael PRN Reason Stop Dose Admin Lactated Ringer's 1,000 mls @ 999 mls/hr 10/25/23 16:53 10/25/23 17:16 Lactated Ringer's 1000 Ml Bag IV 10/25/23 17:53 999 mls/hr .Q1H1M ONE Administration Piperacillin Sod/Tazobactam 50 mls @ 100 mls/hr 10/25/23 19:49 10/25/23 19:57 Sod 3.375 gm/ Sodium Chloride IV 10/25/23 20:18 100 mls/hr ONCE ONE Administration Lactated Ringer's 1,000 mls @ 999 mls/hr 10/25/23 19:49 10/25/23 19:54 Lactated Ringer's 1000 Ml Bag IV 10/25/23 20:49 Not Given .Q1H1M ONE Insulin Human Regular 15 unit 10/25/23 18:22 10/25/23 18:24 Insulin Human Regular 100 Units/Ml 10ml Vial IVP 10/25/23 18:23 15 unit ONCE ONE Administration Iopamidol 100 ml 10/25/23 17:24 08/02/24 17:28 Iopamidol-370 (76%);100ml Bottle IV 10/25/23 17:25 100 ml ONCE ONE Administration Sodium Chloride 10 ml 10/25/23 17:24 10/25/23 17:27 Sodium Chloride 0.9% 10ml Syr (Rad Only) IV 10/25/23 17:25 10 ml ONCE ONE Administration Sodium Chloride 50 ml 10/25/23 17:24 10/25/23 17:27 0.9 % Sodium Chloride 50 Ml Vial IV 10/25/23 17:25 50 ml ONCE ONE Administration ORDERS Category Date Time Status CT angio abdomen pelvis Stat Cat Scan 10/25/23 16:[address] cervical spine wo con Stat Cat Scan 10/25/23 16:[address] head/brain wo con Stat Cat Scan 10/25/23 16:[address] lumbar spine wo con Stat Cat Scan 10/25/23 16:[address] thoracic spine wo con Stat Cat Scan 10/25/23 16:46 Completed CTA Chest [CT angio chest PE protocol] Stat Cat Scan 10/25/23 16:46 Completed Acetone, Serum (Rapid) Stat Lab 10/25/23 16:40 Completed Activated Partial Thrombo Time Stat Lab 10/25/23 16:40 Completed CBC w/Auto Diff [Complete Blood Count Auto Diff] Stat Lab 10/25/23 16:40 Completed CMP [Comprehensive Metabolic Panel] Stat Lab 10/25/23 16:40 Completed Ethyl Alcohol Stat Lab 10/25/23 16:40 Completed Lipase Stat Lab 10/25/23 16:40 Completed MAG [Magnesium] Stat Lab 10/25/23 16:40 Completed PHOS [Phosphorous] Stat Lab 10/25/23 16:40 Completed Prothrombin Time INR Stat Lab 10/25/23 16:40 Completed Rapid PCR Covid and Flu A/B Stat Lab 10/25/23 17:09 Completed T4 (Thyroxine) Stat Lab 10/25/23 16:40 Completed TSH [Thyroid Stimulating Hormone] Stat Lab 10/25/23 16:40 Completed Trop I [Troponin I] Stat Lab 10/25/23 16:40 Completed Troponin I Q3H Lab 10/25/23 20:10 Received Troponin I Q3H Lab 10/25/23 22:45 Ordered UA [Urinalysis and Microscopic] Stat Lab 10/25/23 17:07 Completed UDS [Drug Screen,Urine] Stat Lab 10/25/23 18:03 Completed Blood Culture Stat Micro 10/25/23 16:40 Received Urine Culture Stat Micro 10/25/23 18:03 Received Venous Blood Gas Routine RT 10/25/23 16:38 Completed ECG Data Tracing #1: I reviewed this ECG and interpreted as documented below: Sinus tachycardia with a ventricular rate of [address] changes concerning for ischemia. Normal axis and intervals. ECG initial impression date: 10/25/23 ECG initial impression time: 17:07 Medical Decision Narrative: In summary, this patient is a 57-year-old female presenting to the Emergency Department for evaluation of general weakness, high blood sugar, frequent falls, and generally feeling unwell. Differential diagnoses considered include but are not limited to sepsis, hyperglycemia, HHS, DKA, electrolyte derangements, dehydration, renal failure, traumatic injuries from fall, spine injury. Ruling out the most morbid conditions drove assessment. I reviewed patient's past medical records and noted her recent PCP evaluation as well as her chronic comorbidities, detailed in the HPI. On exam, the patient is lying in bed in no acute distress with no focal neurologic deficits. She is mildly tachycardic and appears dry clinically. She has general weakness overall but no focal deficits and no numbness or tingling noted. Postvoid residual does not demonstrate any acute concerns for urinary retention, so I feel her reassuring exam as well as a bladder ultrasound suggest against spinal cord compression or cauda equina syndrome as a cause of her weakness and falls. Workup included broad workup including infectious, metabolic, cardiac workup as well as CT scans from head to pelvis to evaluate for traumatic injury or cause of the patient's acute illness. I independently interpreted CT scan prior to the radiologist read and noted concerns for possible pneumonia. Please see their read for final interpretation. They also noted that she has a possible superior endplate fracture of L1 without significant displacement. She has chronic anterolisthesis with chronic spinal stenosis. They recommended MRI to further evaluate, but I do not feel that this is emergent since she is neurologically intact in her lower extremities without urinary retention or other concerns. Labs were obtained that demonstrated significant hyperglycemia without concerns for DKA or HHS. She has an elevated lactic acid, leukopenia, and she is tachycardic and tachypneic. Given this as well as the findings concerning for possible pneumonia on CT scan, she meets sepsis criteria. Patient was started on vancomycin and Zosyn and was given a sepsis bolus of IV fluids. She was given 15 units of insulin, which lowered her blood sugar to the 400s.. On multiple subsequent reassessments, she is resting comfortably but is still slightly tachycardic. I feel she would benefit from admission for continued evaluation and management. I had an interactive discussion with the hospitalist who admitted the patient. Critical Care Critical Care Time Critical Care Time: No
[2023-10-25 16:55] LABS: Albumin Level 3.5 g/dl (3.5-5.0); Chloride 96 mmol/L (98-107); Potassium 4.1 mmoL/L (3.5-5.1); Sodium 126 mmol/L (136-145)
[2023-10-25 16:58] LABS: Acetone, Serum (Rapid) None Detected (None Detect); Alanine Aminotransferase 30 U/L (12-78); Albumin/Globulin Ratio 1.1 (1.1-1.8); Alkaline Phosphatase 156 U/L (38-126); Anion Gap 11.1 mEq/L (5-15); Aspartate Amino Transferase 30 U/L (14-36); Bilirubin,Total 0.5 mg/dl (0.2-1.3); Blood Urea Nitrogen 17 mg/dl (7-17); Calcium 8.6 mg/dl (8.4-10.2); Carbon Dioxide 23 mmol/L (22.0-30.0); Creatinine Clearance Estimated 76 mL/min (50-200); Estimated Glomerular Filt Rate 65 ml/min (>60); GFR (African American) 79 ML/MIN (>60); Globulin 3.1 g/dL (1.3-3.2); Lipase 177 U/L (23-300); Phosphorous 4.2 mg/dl (2.5-4.5); Total Protein,Serum 6.6 g/dl (6.3-8.2)
[2023-10-25 16:59] LABS: Magnesium 1.7 mg/dl (1.6-2.3)
[2023-10-25 17:02] LABS: Activated Partial Thrombo Time 24.7 seconds (22.8-30.6); INR 0.89 (0.9-1.1); Prothrombin Time 10.1 seconds (10.1-12.5)
--- NOTE | 2023-10-25 17:06 | ECG_ITS ---
APPROVED REPORT Exam: Resting ECG HR:101 bpm ECG Measurements Heart Rate 101 AXES AR 136 P 54 QRSd 78 QRS 38 QT 334 T 59 QTc 392 Conclusion SINUS TACHYCARDIA NONSPECIFIC T-WAVE ABNORMALITY ABNORMAL RHYTHM ECG Electronically signed by : HUNG NGUYEN, 10/25/2023 21:18:30
[2023-10-25 17:14] LABS: Coronavirus 19, PCR Not Detected (NotDetected); Influenza A, PCR Not Detected (NotDetected); Influenza B, PCR Not Detected (NotDetected)
[2023-10-25 17:15] LABS: T4 (Thyroxine) 6.4 ug/dl (5.53-11.0)
[2023-10-25] MEDS: LACTATED RINGERS 1000ML 1,000 ML 999 ML IV (17:16)
[2023-10-25 17:18] LABS: Troponin I < 0.01 ng/ml (0.00-0.034)
[2023-10-25 17:21] LABS: Ethyl Alcohol < 10 mg/dl (0-10)
[2023-10-25 17:22] LABS: Glucose 843 mg/dl (74-100)
--- NOTE | 2023-10-25 17:22 | PC.NURSE ---
critical glucose 843, received from lab. pt name and r/v. dr parra notified
[2023-10-25] MEDS: SODIUM CHLORIDE 0.9% 10ML SYR (RAD ONLY) 10 ML IV (17:27)
[2023-10-25] MEDS: 0.9 % SODIUM CHLORIDE 50 ML VIAL IV (17:27)
[2023-10-25] MEDS: IOPAMIDOL-370 (76%);100ML BOTTLE 100 ML IV (17:28)
[2023-10-25 17:29] LABS: Thyroid Stimulating Hormone 0.59 uIU/mL (0.465-4.68)
[2023-10-25 18:08] LABS: Microscopic, Urine URINE MICROSCOPIC (MICROSCOPIC)
[2023-10-25] MEDS: INSULIN HUMAN REGULAR 100 UNITS/ML 10ML VIAL 15 UNIT IVP (18:24)
[2023-10-25 18:27] LABS: Bilirubin,Urine Negative (Negative); Blood, Urine 2+ (Negative); Color,Urine YELLOW (Yellow); Glucose,Urine (UA) 3+ (Negative); Ketones,Urine Negative (Negative); Leukocyte Esterase,Urine Negative (Negative); Nitrate,Urine Negative (Negative); Protein,Urine 2+ (Negative); Urobilinogen,Urine 0.2 EU/dl (0.2)
--- NOTE | 2023-10-25 18:28 | PC.NURSE ---
FS [phone]
[2023-10-25 18:35] LABS: Appearance,Urine Slightly Cloudy (Clear)
[2023-10-25 18:38] LABS: Amphetamine/Metha Screen,Urine Negative ng/ml (<1000)
[2023-10-25 18:39] LABS: Barbiturates Screen,Urine Negative ng/ml (<200)
[2023-10-25 18:40] LABS: Benzodiazepines Screen,Urine Negative ng/ml (<200)
[2023-10-25 18:41] LABS: Cannabinoid Screen,Urine Positive ng/ml (<50); Cocaine Screen,Urine Negative ng/ml (<300)
[2023-10-25 18:42] LABS: Methadone Screen,Urine Negative ng/ml (<300)
[2023-10-25 18:43] LABS: Opiate Screen,Urine Negative ng/ml (<300); Phencyclidine Screen,Urine Negative ng/ml (<25)
[2023-10-25 18:50] LABS: Bacteria,Urine Trace /lpf; WBC,Urine Occasional #/hpf (0-3)
--- NOTE | 2023-10-25 19:03 | PC.NURSE ---
FS [phone]
[2023-10-25] MEDS: VANCOMYCIN CONSULT REQUEST 1 EACH NOTAPPLIC (19:54)
[2023-10-25] MEDS: LACTATED RINGERS 1000ML 1,430 ML 715 ML IV (19:57)
[2023-10-25] MEDS: VANCOMYCIN/WATER FOR INJ (PEG) 1.25 GM/250 ML PIGGYBACK IV (19:57)
[2023-10-25] MEDS: PIPERACILLIN/TAZO 3.375 GM in 0.9 % SODIUM CHLORIDE 50 ML IV (19:57)
--- NOTE | 2023-10-25 20:17 | PC.NURSE ---
speaking with hospitalist at this time re: admit
--- NOTE | 2023-10-25 20:19 | PC.NURSE ---
House notified for admission
[2023-10-25 20:39] LABS: Reflex Lactic Add Lactic Reflex
[2023-10-25 20:45] LABS: Troponin I 0.03 ng/ml (0.00-0.034)
--- NOTE | 2023-10-25 21:04 | PC.NURSE ---
Patient arrived to floor via stretcher from ED at 20:43.
[2023-10-25 21:20] LABS: Lactic Acid Follow Up (RFLX 1) 1.8 mmol/L (0.7-2.1)
[2023-10-25 21:25] LABS: POC Glucose,Bedside 447 (70-110)
[2023-10-25] MEDS: PANTOPRAZOLE 40MG TABLET 40 MG PO (21:47)
[2023-10-25] MEDS: humaLOG 100 UNITS/ML 10ML VIAL (SSI) SQ (21:47)
[2023-10-25] MEDS: ENOXAPARIN 40MG/0.4ML SYRINGE 40 MG SQ (21:47)
--- NOTE | 2023-10-25 22:14 | PC.NURSE ---
Med red attempted, patient states she does not take any medications at home due to her PCP discontinuing everything. She has not taken any medications in weeks per patient statement.
--- NOTE | 2023-10-25 23:03 | P.HP_ITS ---
History of Present Illness *Admission Date: 10/25/23 *Reason for visit:: Patient has hyperglycemia, weakness in her legs, unable to stand and falls *History of present illness: Patient is not a reliable historian., She says that all of her medicines were stopped by her primary care doctor., Notes indicated that he stopped all controlled substances due to her abuse and use have been feta means, after talking with the ER physician do agree that this lady is quite ill with her blood sugars being over 800 past history of hemoglobin A1c greater than 15. After interviewing the patient she appears to have quite a self-care deficit. Do not believe she is able to manage her medications at this point in time. I agree with the ER physician that we need to admit her try to get her blood sugar under control evaluate whether she has sepsis/pneumonia. Will need OT physical therapy case management evaluation for the patient's safety and future needs. [facility] Disclaimer: The information contained in this section may have been updated after the patient was seen, as this information can be updated by other users. Medical History Abnormal electrocardiogram [ECG] [EKG] Hyperlipidemia Chronically on benzodiazepine therapy Chronic, continuous use of opioids Generalized anxiety disorder COPD (chronic obstructive pulmonary disease) BMI over 35 HCV (hepatitis C virus) Neuropathy HTN (hypertension) Diabetes Surgical History History of colonoscopy Family History Mother COPD (chronic obstructive pulmonary disease) Family history of diabetes mellitus type I Father COPD (chronic obstructive pulmonary disease) Social History Smoking Status: Current every day smoker tobacco type: cigarettes years smoked: 35 quit status: considering quitting alcohol intake: never substance use type: denies use and marijuana current occupational status: disabled Travel in the last 8 weeks: None caregiver/support person: No household members: friend(s) housing: house lives independently: Yes (with roommate) marital status: number of children: 0 education level: high school caffeine: Yes (2-3 daily) alvaro/gnosticist: Yarsanism Review of Systems Review of Systems Review of systems:: other Review of systems (narrative): Have reviewed several the office notes for about the past 4 visits., Patient has noted as being noncompliant with her diabetic control hemoglobin A1c being greater than 15, noted for amphetamine use. And chronic marijuana use.. On last visit apparently the provider decided was no longer going to give any controlled substances. Found that patient is alert and able to talk to me but sometimes her voice is hard to understand. She is not a very good historian so am relying on office notes for most of her chronic problems. Constitutional Constitutional: Reports daytime sleepiness, Reports fatigue, Reports frequent falls, Reports lethargy, Reports malaise and Reports weight gain Eyes Eyes: Reports system reviewed and no additional complaints, except as documented ENT Ears, Nose, Mouth, and Throat: Reports system reviewed and no additional complaints, except as documented, Reports disequilibrium and Reports dysphagia *Cardiovascular Cardiovascular: Reports system reviewed and no additional complaints, except as documented and Reports dyspnea on exertion *Respiratory Respiratory: Reports as per HPI, Reports cough and Reports dyspnea on exertion *Gastrointestinal Gastrointestinal: Reports system reviewed and no additional complaints, except as documented and Reports dysphagia Comments: Patient gets choked on simply trying to drink water through a straw *Genitourinary Genitourinary: Reports as per HPI *Musculoskeletal Musculoskeletal: Reports system reviewed and no additional complaints, except as documented and Reports abnormal gait Integumentary/Breasts Skin/Breast: Reports erythema Comments: Well per nurses in the [place] area and all the skin folds is what appears to be a yeast infection *Neurologic Neurologic: Reports abnormal gait, Reports confusion, Reports disequilibrium and Reports frequent falls Psychiatric Psychiatric: Reports abnormal sleep pattern, Reports confusion and Reports other (Patient appears quite sedated at times is hard to understand her speech ) Endocrine Endocrine: Reports fatigue and Reports polyuria (Incontinent at times) Hematologic/Lymphatic Hematologic/Lymphatic: Reports as per HPI Allergic/Immunologic Allergic/Immunologic: Reports as per HPI Meds Home Medications and Allergies Home Medications ?Medication ?Instructions ?Recorded ?Confirmed ?Type No Known Home Medications 10/26/23 10/26/23 History New Prescriptions to Start Prescriptions: Allergies Allergy/AdvReac Type Severity Reaction Status Date / Time No Known Allergies Allergy Verified 08/29/23 11:38 Exam Data for Last 24 hours Vital signs and Labs for Last 24 Hours: Temp Pulse Resp BP Pulse Ox O2 Del Method 99.4 F 126 H 26 H 169/96 H 96 Room Air 10/25/23 20:32 10/25/23 22:26 10/25/23 20:32 10/25/23 20:32 10/25/23 20:00 10/25/23 22:26 Laboratory Results - last 24 hr 10/25/23 16:38: VBG pH 7.35, VBG pCO2 36.2, VBG pO2 70.8 H, VBG HCO3 19.4 L, VBG Total CO2 20.5 L, VBG O2 Saturation 94.4 H, VBG Base Excess -6.3 L, VBG Lactic Acid 3.3 H 10/25/23 16:40: WBC 2.7 L, RBC 4.28, Hgb 12.2, Hct 39.3, MCV 91.8, MCH 28.5, MCHC 31.1 L, RDW 15.0, Plt Count 172, MPV 9.0, Neut % (Auto) 56.4, Lymph % (Auto) 33.0, Barry % (Auto) 9.0, Eos % (Auto) 0.6, Baso % (Auto) 1.0, Neut # (Auto) 1.5 L, Lymph # (Auto) 0.9, Barry # (Auto) 0.2, Eos # (Auto) 0.0, Baso # (Auto) 0.0, PT 10.1, INR 0.89 L, APTT 24.7, Sodium 126 L, Potassium 4.1, Chloride 96 L, Carbon Dioxide 23, Anion Gap 11.1, BUN 17, Creatinine 0.90, Estimated Creat Clear 76, Estimated GFR 65, Est GFR ( Amer) 79, Glucose 843 H*, Calcium 8.6, Phosphorus 4.2, Magnesium 1.7, Total Bilirubin 0.5, AST 30, ALT 30, Alkaline Phosphatase 156 H, Troponin I < 0.01, Total Protein 6.6, Albumin 3.5, Globulin 3.1, Albumin/Globulin Ratio 1.1, Lipase 177, TSH 0.59, Thyroxine (T4) 6.4, Plasma/Serum Alcohol < 10, Acetone Level None detected 10/25/23 17:07: Urine Color Yellow, Urine Appearance Slightly cloudy, Urine pH 6.0, Ur Specific [place] 1.010, Urine Protein 2+, Urine Glucose (UA) 3+, Urine Ketones Negative, Urine Blood 2+, Urine Nitrate Negative, Urine Bilirubin Negative, Urine Urobilinogen 0.2, Ur Leukocyte Esterase Negative, Urine RBC 10- 20, Urine WBC Occasional, Ur Squamous Epith Cells 3-5, Urine Bacteria Trace 10/25/23 17:09: SARS-CoV-2 (PCR) Not detected, Influenza A Untype (PCR) Not detected, Influenza Type B (PCR) Not detected 10/25/23 18:03: Urine Opiates Screen Negative, Urine Methadone Screen Negative, Ur Barbituates Screen Negative, Ur Phencyclidine Scrn Negative, Ur Amphetamines Screen Negative, U Benzodiazepines Scrn Negative, Urine Cocaine Screen Negative, U Marijuana (THC) Screen Positive H 10/25/23 20:10: Troponin I 0.03 10/25/23 21:00: Lactate 1.8 10/25/23 21:09: POC Glucose 447 H* I & O for Last 24 hours: Intake & Output 10/22/23 10/23/23 10/24/23 10/25/23 23:59 23:59 23:59 23:59 Intake Total 1850 / 1850 Output Total 0 / 0 Balance 1850 / 1850 Weight 68.039 kg Radiology Reports for the Last 24 Hours: CT scan shows degenerative disc disease and significant spinal stenosis at the L4-L5 Constitutional Constitutional: moderate distress, obese, chronically ill appearing and cooperative *Routine HEENT Exam Head: Present normocephalic and atraumatic Eye: Present EOMI, PERRL and normal accommodation ENT: Present mucous membranes moist *Routine Neck Exam Neck: Present supple Routine Chest/Breast/Axilla Exam Comments: No chest wall tenderness was found *Routine Respiratory Exam Respiratory: Present accessory muscle use, normal respiratory effort, able to speak in complete sentences and symmetric chest movement *Routine Cardiovascular Exam Cardiovascular: Present RRR, Normal S1 and Normal S2 *Routine Abdominal Exam Abdominal: Present soft, normoactive bowel sounds and obese *Routine Rectal Exam Rectal:: deferred *Routine Genitalia Exam Genitalia:: deferred *Routine Extremities Exam Extremities: Present Evangelist's sign and tenderness (tenderness to both lower extremities when I move them, patient is able to move her ankles and knees some but just does not want to due to discomfort) Comments: Patient is able to move her arms well but does not want to move her legs Routine Back/Spine/Pelvis Exam Back/Spine: Present paraspinal tenderness and vertebral tenderness *Routine Skin Exam Skin: Present intact and rash (In the folds of skin in folds of skin and pelvic region appears to be yeast in nature) *Routine Neurological Exam Neurological: Present alert, oriented X3, CN II-XII intact, moving all extremities and normal tone Comments: Patient states she is not able to get up and walk but she can move both of her arms well. She appears kind of sleepy upon exam find no areas of acute injury. Her head was examined that she said she fell and did hit it a few days ago denies loss of consciousness, Trying to give her water she would cough and gag even on a very small sip of water set her up more straight and it did not improve Routine Psychiatric Exam Psychiatric: Present depressed Comments: Slow to respond appears almost sleepy, was hard to understand her voice when she first started to talk but then it cleared after a minute. Additional Findings:: Patient appears to have dysphagia and even sipping simple water H&P: Result Impressions 1. Deficit in self-care which the patient has not been able to care for herself due to pain not having her insulin and not being able to obtain it per her history. 2. Falling, with leg weakness generalized patient says it has been this way for several days 3. Respiratory possible pneumonia per her scan results 4. Uncontrolled diabetes., And from history and listening to the patient it appears to be a self-care deficit Imaging and Cardiology Spinal CT: Status: image reviewed by me (Examination shows that there is spinal stenosis but no acute findings of recent injury) Assessment and Plan *Assessment and plan (1) Spinal stenosis: Status: Acute Category: Medical Code(s): M48.00 - Spinal stenosis, site unspecified (2) Hyperglycemia: Status: Acute Category: Medical Code(s): R73.9 - Hyperglycemia, unspecified (3) Pneumonia: Status: Acute Category: Medical Code(s): J18.9 - Pneumonia, unspecified organism (4) Sepsis: Status: Acute Category: Medical Code(s): A41.9 - Sepsis, unspecified organism (5) Back pain: Status: Acute Qualifiers: Back pain laterality: bilateral Back pain location: low back pain Chronicity: chronic Sciatica laterality: sciatica of right side Sciatica presence: with sciatica Qualified Code(s): M54.41 - Lumbago with sciatica, right side; G89.29 - Other chronic pain Category: Medical Code(s): M54.9 - Dorsalgia, unspecified (6) Vertebral compression fracture: Status: Acute Qualifiers: Encounter type: subsequent encounter Fracture healing: with routine healing Fracture of vertebra location: thoracic Thoracic vertebra fracture level: T10 Qualified Code(s): S22.070D - Wedge compression fracture of T9-T10 vertebra, subsequent encounter for fracture with routine healing Category: Medical Code(s): M48.50XA - Collapsed vertebra, not elsewhere classified, site unspecified, initial encounter for fracture (7) Cirrhosis of liver: Problem Comment: This was all diagnosed by CT scan. Will get an MRI thin slice of the abdomen with specific focus on the liver and biliary system. Again I think this is all secondary to her underlying hepatitis above but she needs a full workup. Will send her to GI for evaluation. Status: Acute Qualifiers: Ascites presence: without ascites Hepatic cirrhosis type: unspecified hepatic cirrhosis Qualified Code(s): K74.60 - Unspecified cirrhosis of liver Category: Medical Code(s): K74.60 - Unspecified cirrhosis of liver (8) Marijuana use: Status: Acute Category: Social Hx Code(s): F12.90 - Cannabis use, unspecified, uncomplicated (9) Hep C w/o coma, chronic: Problem Comment: This patient hepatitis C that was treated. I think this is the cause of her cirrhosis see below. She denies any alcohol use. I wonder about things such as Ethan's disease etc. however it seems more likely the hepatitis was the issue. See below. Status: Acute Category: Medical Code(s): B18.2 - Chronic viral hepatitis C (10) Potential for self care deficit: Status: Acute Category: Medical Code(s): Z91.89 - Other specified personal risk factors, not elsewhere classified (11) Fever: Status: Acute Qualifiers: Encounter type: subsequent encounter Category: Medical Code(s): R50.9 - Fever, unspecified Plan Mrs. Valdovinos is a 57-year-old female who presented with sepsis criteria. Found to be tachycardic, febrile, neutropenia. Initiated on broad-spectrum antibiotics. Case discussed with ER physician, request admission for continued treatment of hyperglycemia, sepsis, clinical instability. Medicine agreed to admit. Blood and urine cultures pending. Continue broad-spectrum antibiotics. Necessitating inpatient admission. High risk for decompensation. Problems addressed as follows: Severe sepsis -Blood and urine cultures obtained, patient meeting sepsis criteria with tachycardia, tachypnea, white count less than 4, suspected infection in her urine. -Continue vancomycin and Zosyn for at least 24 hours, will de-escalate pending sensitivities. -Status post sepsis bolus, will initiate maintenance fluids -N.p.o. due to coughing -Tylenol for fever -White count low at 2.7, CBC, CMP, magnesium ordered for the morning. Hyperglycemia/HHS Uncontrolled diabetes -Unclear if patient is taking her home medications. Glucose greater than 800 on admission. Initiated on sliding scale insulin with fingersticks ACHS. -A1c pending. Most recent A1c 4 months ago greater than 15 -Nutrition consulted to assist with education on diabetes and dietary adjustment - Sodium 126, potassium 4.1, kidney function normal with creatinine 0.9. Dysphagia -Choking with liquids and mouth care, speech consult placed. N.p.o. at this time. Tobacco use disorder: Nicotine patch as needed date Full code N.p.o. due to choking Lovenox 40 mg subcu daily PT and OT to evaluate Rounded on patient after nurse practitioner. Personally examined and interviewed patient. Agree with exam findings and care plan as documented.
[2023-10-25 23:14] LABS: Troponin I 0.04 ng/ml (0.00-0.034)
[2023-10-26] VITALS (17 sets, daily range): BP systolic 127–162; BP diastolic 63–95; PULSE 80–102; RESP 16–23; TEMP 36.7–39; O2SAT 94–97; BMI 30.7
[2023-10-26] MEDS: PIPERACILLIN/TAZO 3.375 GM in 0.9 % SODIUM CHLORIDE 50 ML IV ×4 (03:42→20:55)
[2023-10-26] MEDS: NYSTATIN TOPICAL POWDER 30GM TP ×5 (03:44→21:52)
[2023-10-26] MEDS: ACETAMINOPHEN 325MG TAB 650 MG PO (04:26)
--- NOTE | 2023-10-26 04:50 | PC.NURSE ---
Addendum entered by Anastasia Mims RN 10/26/23 05:18: Incentive spirometry given and educated patient on use. Pt demonstrated use successfully. Original Note: Pt is alert and oriented. Sometimes seems groggy. States she wants her gabbys , made FREIGHT SORTER aware of patient request. Pt rishabh area and buttock excoriated, patch applied to buttock area. Purewick in place, pt incontinent of brief on arrival. Pt states she cant move her legs much, pt raised both legs off of bed without problem. Pt tolerated eating pudding and sandwich with no issues. Pt coughs when drinking thin liquids, but can tolerate PO medication with water, pt states she coughs because she doesnt have her teeth in. Lung sounds diminished bilaterally. Tolerating room air. Bowel sounds active, abdomen soft and nontender. Fever noted at 0400 VS check, treated per mar and made FREIGHT SORTER aware. Pt has had no complaints. Bed alarm on due to multiple falls. Call light in reach.
--- NOTE | 2023-10-26 05:13 | P.PN_ITS ---
Subjective *Date: 10/26/23 *Time: 12:19 Interval history: Patient was seen in the emergency room for multiple problems and admitted to the floor. One-step to the floor began to have a fever of 102.3. Lab also notified that blood cultures grew Klebsiella pneumonia. Patient is presently on an antibiotic that will cover that bacteria in most cases Patient was able to eat solid food but cannot drink water tried giving through a straw try drinking from the cup and constantly coughing when she does Exam Data for Last 24 hours Vital signs and Labs for Last 24 Hours: Temp Pulse Resp BP Pulse Ox O2 Del Method 100.3 F H 98 H 18 132/63 96 Room Air 10/26/23 04:57 10/26/23 00:00 10/26/23 00:00 10/26/23 00:00 10/26/23 00:00 10/26/23 04:49 Laboratory Results - last 24 hr 10/25/23 16:38: VBG pH 7.35, VBG pCO2 36.2, VBG pO2 70.8 H, VBG HCO3 19.4 L, VBG Total CO2 20.5 L, VBG O2 Saturation 94.4 H, VBG Base Excess -6.3 L, VBG Lactic Acid 3.3 H 10/25/23 16:40: WBC 2.7 L, RBC 4.28, Hgb 12.2, Hct 39.3, MCV 91.8, MCH 28.5, MCHC 31.1 L, RDW 15.0, Plt Count 172, MPV 9.0, Neut % (Auto) 56.4, Lymph % (Auto) 33.0, Ritchie % (Auto) 9.0, Eos % (Auto) 0.6, Baso % (Auto) 1.0, Neut # (Auto) 1.5 L, Lymph # (Auto) 0.9, Ritchie # (Auto) 0.2, Eos # (Auto) 0.0, Baso # (Auto) 0.0, PT 10.1, INR 0.89 L, APTT 24.7, Sodium 126 L, Potassium 4.1, Chloride 96 L, Carbon Dioxide 23, Anion Gap 11.1, BUN 17, Creatinine 0.90, Estimated Creat Clear 76, Estimated GFR 65, Est GFR ( Amer) 79, Glucose 843 H*, Calcium 8.6, Phosphorus 4.2, Magnesium 1.7, Total Bilirubin 0.5, AST 30, ALT 30, Alkaline Phosphatase 156 H, Troponin I < 0.01, Total Protein 6.6, Albumin 3.5, Globulin 3.1, Albumin/Globulin Ratio 1.1, Lipase 177, TSH 0.59, Thyroxine (T4) 6.4, Plasma/Serum Alcohol < 10, Acetone Level None detected 10/25/23 17:07: Urine Color Yellow, Urine Appearance Slightly cloudy, Urine pH 6.0, Ur Specific [place] 1.010, Urine Protein 2+, Urine Glucose (UA) 3+, Urine Ketones Negative, Urine Blood 2+, Urine Nitrate Negative, Urine Bilirubin Negative, Urine Urobilinogen 0.2, Ur Leukocyte Esterase Negative, Urine RBC 10- 20, Urine WBC Occasional, Ur Squamous Epith Cells 3-5, Urine Bacteria Trace 10/25/23 17:09: SARS-CoV-2 (PCR) Not detected, Influenza A Untype (PCR) Not detected, Influenza Type B (PCR) Not detected 10/25/23 18:03: Urine Opiates Screen Negative, Urine Methadone Screen Negative, Ur Barbituates Screen Negative, Ur Phencyclidine Scrn Negative, Ur Amphetamines Screen Negative, U Benzodiazepines Scrn Negative, Urine Cocaine Screen Negative, U Marijuana (THC) Screen Positive H 10/25/23 20:10: Troponin I 0.03 10/25/23 21:00: Lactate 1.8 10/25/23 21:09: POC Glucose 447 H* 10/25/23 22:45: Troponin I 0.04 H I & O for Last 24 hours: Intake & Output 10/23/23 10/24/23 10/25/23 10/26/23 23:59 23:59 23:59 23:59 Intake Total 1850 / 1850 600 / 600 Output Total 0 / 0 Balance 1850 / 1850 600 / 600 Weight 68.039 kg Microbiology Reports for the Last 24 Hours: Microbiology 10/25/23 16:40 Blood Blood Culture - Preliminary 10/25/23 16:40 Blood Blood Culture - Preliminary Constitutional Constitutional: no acute distress and obese *Routine Neck Exam Neck: Present supple and full ROM *Routine Respiratory Exam Respiratory: Present crackles, diminished air movement, normal respiratory effort and able to speak in complete sentences Comments: Now has mild bilateral upper airway crackles. *Routine Cardiovascular Exam Cardiovascular: Present RRR *Routine Abdominal Exam Abdominal: Present soft Comments: Per nurse the patient is able to eat solid food and take her pills without a problem, but while in the room having patient try to drink water from a straw she coughs having patient just drink it from the cup she also coughed *Routine Neurological Exam Neurological: Present alert, oriented X3 and CN II-XII intact Comments: Is more awake and alert than when she was in the emergency room Assessment and Plan *Assessment and plan (1) Fever: Status: Acute Qualifiers: Encounter type: subsequent encounter Category: Medical Code(s): R50.9 - Fever, unspecified (2) Dysphagia: Status: Acute Qualifiers: Dysphagia type: pharyngeal phase Qualified Code(s): R13.13 - Dysphagia, pharyngeal phase Category: Medical Code(s): R13.10 - Dysphagia, unspecified (3) Hyperglycemia: Status: Acute Category: Medical Code(s): R73.9 - Hyperglycemia, unspecified (4) Sepsis: Status: Acute Qualifiers: Sepsis type: sepsis due to unspecified organism Category: Medical Code(s): A41.9 - Sepsis, unspecified organism Plan 1. Sepsis with fever positive blood culture for Klebsiella pneumonia. Continue to hydrate the patient and continue antibiotic. IV fluids started 2. Hyperglycemia, patient's last blood sugar is now down compared to admission 3. Dysphagia: To water. Coughs and chokes on water but was able to take her pills and eat solid food without any signs of dysphagia, patient is n.p.o. now and will have swallow study evaluation needs. Will continue with her present treatment at this time.
--- NOTE | 2023-10-26 05:14 | PC.NURSE ---
Contacted pharmacy about new [facility] consult, stated local pharmacy will pick it up and dose this.
[2023-10-26 05:16] LABS: POC Glucose,Bedside 387 (70-110)
[2023-10-26] MEDS: humaLOG 100 UNITS/ML 10ML VIAL (SSI) SQ ×3 (05:35→17:08)
[2023-10-26] MEDS: LACTATED RINGERS 1000ML 2,040 ML 1020 ML IV (05:35)
[2023-10-26 05:56] LABS: Albumin Level 2.8 g/dl (3.5-5.0); Chloride 106 mmol/L (98-107); Potassium 3.9 mmoL/L (3.5-5.1); Sodium 133 mmol/L (136-145)
[2023-10-26 05:58] LABS: Creatine Kinase 85 U/L (30-135); Lactic Acid 0.9 mmol/L (0.7-2.1)
[2023-10-26 05:59] LABS: Activated Partial Thrombo Time 30.5 seconds (22.8-30.6); Alanine Aminotransferase 20 U/L (12-78); Alkaline Phosphatase 117 U/L (38-126); Anion Gap 8.9 mEq/L (5-15); Aspartate Amino Transferase 29 U/L (14-36); Bilirubin,Total 0.5 mg/dl (0.2-1.3); Blood Urea Nitrogen 17 mg/dl (7-17); Carbon Dioxide 22 mmol/L (22.0-30.0); Creatinine Clearance Estimated 74 mL/min (50-200); Estimated Glomerular Filt Rate 58 ml/min (>60); GFR (African American) 70 ML/MIN (>60); Globulin 2.9 g/dL (1.3-3.2); Glucose 368 mg/dl (74-100); INR 0.98 (0.9-1.1); Magnesium 1.6 mg/dl (1.6-2.3); Total Protein,Serum 5.7 g/dl (6.3-8.2)
--- NOTE | 2023-10-26 06:01 | PC.NURSE ---
16F joseph placed at this time. UA sent to lab.
[2023-10-26 06:04] LABS: C-Reactive Protein 85.5 mg/L (0-4)
[2023-10-26 06:08] LABS: Erythrocyte Sedimentation Rate > 140 mm/hr (0-30)
--- NOTE | 2023-10-26 06:09 | PC.NURSE ---
New orders for another sepsis bolus, clarified these orders with Jeri WHEELER before administering, states okay to give per order.
[2023-10-26 06:12] LABS: Basophils % 1.5 % (0.1-2.0); Eosinophils % 0.2 % (0.1-12.0); Hematocrit 33.3 % (37.0-47.0); Hemoglobin 10.9 g/dL (12.2-16.2); Lymphocytes % 45.1 % (10-50); Mean Corpuscular HGB Conc 32.8 g/dL (31.8-35.4); Mean Corpuscular Hemoglobin 27.8 pg (27.0-31.2); Mean Corpuscular Volume 84.7 fl (81-99); Mean Platelet Volume 9.1 fl (7.4-10.4); Monocytes # 0.2 K/mm3 (0.1-1.0); Monocytes % 10.6 % (1.7-9.3); Neutrophils # 0.9 K/mm3 (1.8-7.8); Neutrophils % 42.6 % (37.0-80.0); Platelet Count 132 K/mm3 (142-424); Red Blood Count 3.93 M/mm3 (4.20-5.40); Red Cell Distribution Width 15.3 % (11.5-17.5); White Blood Count 2.2 K/mm3 (4.8-10.8)
--- NOTE | 2023-10-26 08:12 | PC.NURSE ---
When asked about last bowel movement, pt would not respond verbally. only response was to shrug her shoulders
--- NOTE | 2023-10-26 08:33 | EXP.PHA.CONS ---
Pharmacy Consult Date: 10/26/23 Time: 08:33 Referring provider: Nika WILCOX APRN Reason for Consult:: VANCOMYCIN DOSING Allergies Allergy/AdvReac Type Severity Reaction Status Date / Time No Known Allergies Allergy Verified 08/29/23 11:38 New Prescriptions to Start Prescriptions: Height: 1.55 m Weight: 73.663 kg Laboratory Results:: Laboratory Results - last 24 hr 10/25/23 16:38: VBG pH 7.35, VBG pCO2 36.2, VBG pO2 70.8 H, VBG HCO3 19.4 L, VBG Total CO2 20.5 L, VBG O2 Saturation 94.4 H, VBG Base Excess -6.3 L, VBG Lactic Acid 3.3 H 10/25/23 16:40: WBC 2.7 L, RBC 4.28, Hgb 12.2, Hct 39.3, MCV 91.8, MCH 28.5, MCHC 31.1 L, RDW 15.0, Plt Count 172, MPV 9.0, Neut % (Auto) 56.4, Lymph % (Auto) 33.0, Morris % (Auto) 9.0, Eos % (Auto) 0.6, Baso % (Auto) 1.0, Neut # (Auto) 1.5 L, Lymph # (Auto) 0.9, Morris # (Auto) 0.2, Eos # (Auto) 0.0, Baso # (Auto) 0.0, PT 10.1, INR 0.89 L, APTT 24.7, Sodium 126 L, Potassium 4.1, Chloride 96 L, Carbon Dioxide 23, Anion Gap 11.1, BUN 17, Creatinine 0.90, Estimated Creat Clear 76, Estimated GFR 65, Est GFR ( Amer) 79, Glucose 843 H*, Calcium 8.6, Phosphorus 4.2, Magnesium 1.7, Total Bilirubin 0.5, AST 30, ALT 30, Alkaline Phosphatase 156 H, Troponin I < 0.01, Total Protein 6.6, Albumin 3.5, Globulin 3.1, Albumin/Globulin Ratio 1.1, Lipase 177, TSH 0.59, Thyroxine (T4) 6.4, Plasma/Serum Alcohol < 10, Acetone Level None detected 10/25/23 17:07: Urine Color Yellow, Urine Appearance Slightly cloudy, Urine pH 6.0, Ur Specific [place] 1.010, Urine Protein 2+, Urine Glucose (UA) 3+, Urine Ketones Negative, Urine Blood 2+, Urine Nitrate Negative, Urine Bilirubin Negative, Urine Urobilinogen 0.2, Ur Leukocyte Esterase Negative, Urine RBC 10-20, Urine WBC Occasional, Ur Squamous Epith Cells 3-5, Urine Bacteria Trace 10/25/23 17:09: SARS-CoV-2 (PCR) Not detected, Influenza A Untype (PCR) Not detected, Influenza Type B (PCR) Not detected 10/25/23 18:03: Urine Opiates Screen Negative, Urine Methadone Screen Negative, Ur Barbituates Screen Negative, Ur Phencyclidine Scrn Negative, Ur Amphetamines Screen Negative, U Benzodiazepines Scrn Negative, Urine Cocaine Screen Negative, U Marijuana (THC) Screen Positive H 10/25/23 20:10: Troponin I 0.03 10/25/23 21:00: Lactate 1.8 10/25/23 21:09: POC Glucose 447 H* 10/25/23 22:45: Troponin I 0.04 H 10/26/23 05:07: POC Glucose 387 H* 10/26/23 05:28: WBC 2.2 L, RBC 3.93 L, Hgb 10.9 L D, Hct 33.3 L, MCV 84.7, MCH 27.8, MCHC 32.8, RDW 15.3, Plt Count 132 L, MPV 9.1, Neut % (Auto) 42.6, Lymph % (Auto) 45.1, Morris % (Auto) 10.6 H, Eos % (Auto) 0.2, Baso % (Auto) 1.5, Neut # (Auto) 0.9 L*, Lymph # (Auto) 1.0, Morris # (Auto) 0.2, Eos # (Auto) 0.0, Baso # (Auto) 0.0, ESR > 140 H, PT 11.0, INR 0.98, APTT 30.5, Sodium 133 L, Potassium 3.9, Chloride 106, Carbon Dioxide 22, Anion Gap 8.9, BUN 17, Creatinine 1.00, Estimated Creat Clear 74, Estimated GFR 58 L, Est GFR ( Amer) 70, Glucose 368 H D, Lactate 0.9, Calcium 8.0 L, Magnesium 1.6, Total Bilirubin 0.5, AST 29, ALT 20 D, Alkaline Phosphatase 117, Total Creatine Kinase 85, C-Reactive Protein 85.5 H, Total Protein 5.7 L, Albumin 2.8 L D, Globulin 2.9, Albumin/Globulin Ratio 1.0 L Medical History: Medical History (Updated 10/26/23 @ 05:23 by Gabo Wilcox APRN) Abnormal electrocardiogram [ECG] [EKG] Hyperlipidemia Chronically on benzodiazepine therapy Chronic, continuous use of opioids Generalized anxiety disorder COPD (chronic obstructive pulmonary disease) BMI over 35 HCV (hepatitis C virus) Neuropathy HTN (hypertension) Diabetes Assessment and Plan Assessment and plan all Dx Assessment and Plan for all problems:: Pharmacokinetic dosing service Objective: Patient: Floor: Age: 57 yo Serum creatinine: 1 mg/dL Height: 61.0 Inches Weight (kg): 73 Assessment: IBW (kg): 47.80 Dosing wt(kg): 73 Estimated Creatinine clearance (ml/min): 48.0 CRCL method: Cockcroft and Gault using ibw(default). Drug selected: Vancomycin Loading dose (mg): 0 Vd (liters): 58.4 (factor used: 0.8 L/kg) Fortino (hr-1): 0.044 Half life (hrs): 15.75 Recommended dose: 1500 mg Interval: 24 hrs Infusion time (hrs): 2.0 Predicted peak (mcg/mL): 37.7 Predicted trough (mcg/mL): 14.32 Total body weight is being used for vancomycin dosing. Recommendations: Give Vancomycin 1500 mg q 24 hrs with an expected Cpeak of 37.7 mcg/ml and an expected Ctrough of 14.32 mcg/ml ----Vanco only - ignore for aminoglycosides----- CLvanco= 2.57 L/hr AUC 0-24 /CALLIE Data: CALLIE 0.5 mcg/mL: AUC/CALLIE: 1167.3 CALLIE 1.0 mcg/mL: AUC/CALLIE: 583.7 --------- CALLIE 1.5 mcg/mL: AUC/CALLIE: 389.1 CALLIE 2.0 mcg/mL: AUC/CALLIE: 291.8
[2023-10-26] MEDS: PANTOPRAZOLE 40MG TABLET 40 MG PO (10:06)
[2023-10-26] MEDS: ENOXAPARIN 40MG/0.4ML SYRINGE 40 MG SQ (10:06)
[2023-10-26] MEDS: INSULIN GLARGINE 100 UNITS/ML 3ML FLEXPEN 20 UNIT SQ (10:07)
--- NOTE | 2023-10-26 10:43 | P.PN_ITS ---
Subjective *Date: 10/26/23 *Time: 17:51 Interval history: Patient more alert this morning but still quite fatigued. Blood cultures returned overnight positive for Klebsiella. Urine culture returned on morning rounds positive for gram-negative rods, suspect Klebsiella. Escalated to stepd own level of care due to severity of illness and bacteremia. Blood sugar showing some improvement. Inflammatory markers severely elevated. No nausea or vomiting overnight. No chest pain or shortness of breath. Medical Exam Vital signs and Labs for Last 24 Hours: Vital Signs Temp Pulse Pulse Pulse Resp BP BP 10/26/23 08:48 98.9 F 10/26/23 08:00 80 22 133/63 10/26/23 07:40 84 10/26/23 07:25 84 22 148/74 H 10/26/23 06:43 10/26/23 06:43 98.3 F 10/26/23 04:57 100.3 F H 10/26/23 04:49 10/26/23 04:00 102.2 F H 102 H 18 144/67 H 10/26/23 03:00 10/26/23 01:00 10/26/23 00:00 98.2 F 98 H 18 132/63 10/25/23 23:00 10/25/23 22:26 126 H 10/25/23 21:00 10/25/23 20:32 99.4 F 122 H 26 H 169/96 H 10/25/23 20:00 121 H 26 H 162/69 H 10/25/23 19:30 99.4 F 126 H 35 H 162/72 H 10/25/23 19:15 141 H 36 H 10/25/23 19:00 133 H 34 H 165/79 H 10/25/23 18:30 121 H 33 H 182/77 H 10/25/23 18:03 120 H 24 197/77 H 10/25/23 17:00 104 H 29 H 168/83 H 10/25/23 16:43 115 H 26 H 166/89 H 10/25/23 16:31 98.0 F 106 H 29 H 166/89 H Pulse Ox O2 Del Method 10/26/23 08:48 10/26/23 08:00 96 Room Air 10/26/23 07:40 94 L Room Air 10/26/23 07:25 94 L Room Air 10/26/23 06:43 Room Air 10/26/23 06:43 10/26/23 04:57 10/26/23 04:49 Room Air 10/26/23 04:00 97 Room Air 10/26/23 03:00 Room Air 10/26/23 01:00 Room Air 10/26/23 00:00 96 Room Air 10/25/23 23:00 Room Air 10/25/23 22:26 Room Air 10/25/23 21:00 Room Air 10/25/23 20:32 Room Air 10/25/23 20:00 96 Room Air 10/25/23 19:30 96 Room Air 10/25/23 19:15 97 10/25/23 19:00 97 10/25/23 18:30 96 Room Air 10/25/23 18:03 97 Room Air 10/25/23 17:00 95 Room Air 10/25/23 16:43 97 Room Air 10/25/23 16:31 96 Room Air Intake and Output 10/25/23 10/26/23 10/26/23 23:59 07:59 15:59 Intake Total 1850 / 1850 600 / 600 Output Total 0 / 0 Balance 1850 / 1850 600 / 600 Intake: Intake, Oral Amount 300 / 300 Intake, Total IV Amount 1850 / 1850 300 / 300 Piperacillin/Tazo 3.375 gm In 0 50 / 50 .9 % Sodium Chloride 50 ml @ 100 mls/hr IV Q8H [facility] Rx#: [id number] Vancomycin/Water For Inj (Peg) 250 / 250 1.25 gm In 250 ml @ 125 mls/hr IV ONCE ONE Rx#:[id number] Output: Output, Urine Amount 0 / 0 Other: Number of Unmeasured Voids 1 1 Weight 68.039 kg 73.663 kg 73.663 kg Patient Weight 10/26/23 23:59 Weight 73.663 kg Laboratory Results - last 24 hr 10/25/23 16:38: VBG pH 7.35, VBG pCO2 36.2, VBG pO2 70.8 H, VBG HCO3 19.4 L, VBG Total CO2 20.5 L, VBG O2 Saturation 94.4 H, VBG Base Excess -6.3 L, VBG Lactic Acid 3.3 H 10/25/23 16:40: WBC 2.7 L, RBC 4.28, Hgb 12.2, Hct 39.3, MCV 91.8, MCH 28.5, MCHC 31.1 L, RDW 15.0, Plt Count 172, MPV 9.0, Neut % (Auto) 56.4, Lymph % (Auto) 33.0, Roberts % (Auto) 9.0, Eos % (Auto) 0.6, Baso % (Auto) 1.0, Neut # (Auto) 1.5 L, Lymph # (Auto) 0.9, Roberts # (Auto) 0.2, Eos # (Auto) 0.0, Baso # (Auto) 0.0, PT 10.1, INR 0.89 L, APTT 24.7, Sodium 126 L, Potassium 4.1, Chloride 96 L, Carbon Dioxide 23, Anion Gap 11.1, BUN 17, Creatinine 0.90, Estimated Creat Clear 76, Estimated GFR 65, Est GFR ( Amer) 79, Glucose 843 H*, Calcium 8.6, Phosphorus 4.2, Magnesium 1.7, Total Bilirubin 0.5, AST 30, ALT 30, Alkaline Phosphatase 156 H, Troponin I < 0.01, Total Protein 6.6, Albumin 3.5, Globulin 3.1, Albumin/Globulin Ratio 1.1, Lipase 177, TSH 0.59, Thyroxine (T4) 6.4, Plasma/Serum Alcohol < 10, Acetone Level None detected 10/25/23 17:07: Urine Color Yellow, Urine Appearance Slightly cloudy, Urine pH 6.0, Ur Specific [place] 1.010, Urine Protein 2+, Urine Glucose (UA) 3+, Urine Ketones Negative, Urine Blood 2+, Urine Nitrate Negative, Urine Bilirubin Negative, Urine Urobilinogen 0.2, Ur Leukocyte Esterase Negative, Urine RBC 10- 20, Urine WBC Occasional, Ur Squamous Epith Cells 3-5, Urine Bacteria Trace 10/25/23 17:09: SARS-CoV-2 (PCR) Not detected, Influenza A Untype (PCR) Not detected, Influenza Type B (PCR) Not detected 10/25/23 18:03: Urine Opiates Screen Negative, Urine Methadone Screen Negative, Ur Barbituates Screen Negative, Ur Phencyclidine Scrn Negative, Ur Amphetamines Screen Negative, U Benzodiazepines Scrn Negative, Urine Cocaine Screen Negative, U Marijuana (THC) Screen Positive H 10/25/23 20:10: Troponin I 0.03 10/25/23 21:00: Lactate 1.8 10/25/23 21:09: POC Glucose 447 H* 10/25/23 22:45: Troponin I 0.04 H 10/26/23 05:07: POC Glucose 387 H* 10/26/23 05:28: WBC 2.2 L, RBC 3.93 L, Hgb 10.9 L D, Hct 33.3 L, MCV 84.7, MCH 27.8, MCHC 32.8, RDW 15.3, Plt Count 132 L, MPV 9.1, Neut % (Auto) 42.6, Lymph % (Auto) 45.1, Roberts % (Auto) 10.6 H, Eos % (Auto) 0.2, Baso % (Auto) 1.5, Neut # (Auto) 0.9 L*, Lymph # (Auto) 1.0, Roberts # (Auto) 0.2, Eos # (Auto) 0.0, Baso # (Auto) 0.0, ESR > 140 H, PT 11.0, INR 0.98, APTT 30.5, Sodium 133 L, Potassium 3.9, Chloride 106, Carbon Dioxide 22, Anion Gap 8.9, BUN 17, Creatinine 1.00, Estimated Creat Clear 74, Estimated GFR 58 L, Est GFR ( Amer) 70, Glucose 368 H D, Lactate 0.9, Calcium 8.0 L, Magnesium 1.6, Total Bilirubin 0.5, AST 29, ALT 20 D, Alkaline Phosphatase 117, Total Creatine Kinase 85, C-Reactive Protein 85.5 H, Total Protein 5.7 L, Albumin 2.8 L D, Globulin 2.9, Albumin/Globulin Ratio 1.0 L I & O for Labs for Last 24 Hours: Intake & Output 10/23/23 10/24/23 10/25/23 10/26/23 23:59 23:59 23:59 23:59 Intake Total 1850 / 1850 600 / 600 Output Total 0 / 0 Balance 1850 / 1850 600 / 600 Weight 68.039 kg 73.663 kg Microbiology Reports for the Last 24 Hours: Microbiology 10/25/23 16:40 Blood Blood Culture - Preliminary 10/25/23 16:40 Blood Blood Culture - Preliminary Constitutional: Present mild distress, obese, chronically ill appearing and cooperative Head: Present atraumatic and normocephalic ENT: Present normal exam Neck: Present normal inspection Respiratory: Present normal respiratory effort and able to speak in complete sentences; Absent rhonchi, wheezes or crackles Cardiac: Present Reg Rate and Rhythm GI: Present soft, tenderness (Nonfocal, mild ) and normal bowel sounds; Absent distention Extremities: Present normal inspection and full ROM Skin: Present intact; Absent erythema Neuro: Present Grossly Intact, alert, awake, oriented x 3 and moves all extremities Comment:: Slow to respond, fatigue Assessment and Plan *Assessment and plan (1) Severe sepsis: Status: Acute Category: Medical Code(s): A41.9 - Sepsis, unspecified organism; R65.20 - Severe sepsis without septic shock (2) Bacteremia due to Klebsiella pneumoniae: Status: Acute Category: Medical Code(s): R78.81 - Bacteremia; B96.1 - Klebsiella pneumoniae [K. pneumoniae] as the cause of diseases classified elsewhere (3) Hyperglycemia: Status: Acute Category: Medical Code(s): R73.9 - Hyperglycemia, unspecified (4) Hyperosmolar hyperglycemic state (HHS): Status: Acute Category: Medical Code(s): E11.00 - Type 2 diabetes mellitus with hyperosmolarity without nonketotic hyperglycemic-hyperosmolar coma (NKHHC) (5) Tobacco use: Status: Acute Category: Social Hx Code(s): Z72.0 - Tobacco use (6) HCV (hepatitis C virus): Status: Acute Qualifiers: Hepatic coma status: without hepatic coma Viral hepatitis chronicity: chronic Qualified Code(s): B18.2 - Chronic viral hepatitis C Category: Medical Code(s): B19.20 - Unspecified viral hepatitis C without hepatic coma (7) HTN (hypertension): Status: Acute Qualifiers: Hypertension type: primary hypertension Qualified Code(s): I10 - Essential (primary) hypertension Category: Medical Code(s): I10 - Essential (primary) hypertension (8) Hyperlipidemia: Status: Acute Qualifiers: Hyperlipidemia type: mixed hyperlipidemia Qualified Code(s): E78.2 - Mixed hyperlipidemia Category: Medical Code(s): E78.5 - Hyperlipidemia, unspecified (9) Dysphagia: Status: Acute Qualifiers: Dysphagia type: pharyngeal phase Qualified Code(s): R13.13 - Dysphagia, pharyngeal phase Category: Medical Code(s): R13.10 - Dysphagia, unspecified (10) Depression: Status: Acute Category: Medical Code(s): F32.A - Depression, unspecified (11) Obesity: Status: Acute Category: Medical Code(s): E66.9 - Obesity, unspecified (12) Cirrhosis of liver: Problem Comment: This was all diagnosed by CT scan. Will get an MRI thin slice of the abdomen with specific focus on the liver and biliary system. Again I think this is all secondary to her underlying hepatitis above but she needs a full workup. Will send her to GI for evaluation. Status: Acute Qualifiers: Ascites presence: without ascites Hepatic cirrhosis type: unspecified hepatic cirrhosis Qualified Code(s): K74.60 - Unspecified cirrhosis of liver Category: Medical Code(s): K74.60 - Unspecified cirrhosis of liver Plan Mrs. Valdovinos is a 57-year-old female who presented with sepsis criteria. Found to be tachycardic, febrile, neutropenia. Initiated on broad-spectrum antibiotics. Case discussed with ER physician, request admission for continued treatment of hyperglycemia, sepsis, clinical instability. Medicine agreed to admit. Blood cultures returned positive overnight, continuing broad-spectrum antibiotics with vancomycin and Zosyn. Awaiting speciation and sensitivity. Patient necessitating stepdown level of care. High risk for decompensation. Problems addressed as follows: Severe sepsis Klebsiella bacteremia -Blood cultures positive for Klebsiella, urine culture positive for gram- negative rods. Suspect sepsis secondary to pyelonephritis. -Continue vancomycin and Zosyn for at least 24 hours, will de-escalate pending sensitivities. -Sensitivities still pending on blood cultures. -Continue maintenance IV fluids with LR at 100 cc an hour. -N.p.o. due to coughing -Tylenol for fever -White count low at 2.2. Hemoglobin 10.9. Hyperglycemia/HHS These - Continue glargine 20 units daily, sliding scale insulin with fingersticks ACHS. Seeing improvement in glucose. Morning glucose 368. -A1c pending. Most recent A1c 4 months ago greater than 15 -Nutrition consulted to assist with education on diabetes and dietary adjustment -Potassium 3.9, creatinine 1.0, BUN 17, magnesium 1.6. Repeat CBC, CMP, magnesium ordered for the morning. Repeat CMP and CBC ordered for this evening. Dysphagia -Choking with liquids and mouth care, speech consult placed. N.p.o. at this time. Reevaluate bedside tomorrow if patient stronger and doing better Tobacco use disorder: Nicotine patch as needed date Full code N.p.o. due to choking Lovenox 40 mg subcu daily ICU/Critical care attestation This patient is critically ill with 40 minutes devoted solely to this patient managing life/organ supporting interventions that required physician assessment. This includes time spent making adjustments in ventilator settings, IV fluid administration, titration of pressors, adjustments of medications, discussion of patient with consultants and other care providers as well as updating patient and/or family (if patient by virtue of his/her condition is unable to participate in decision making). This does not include time spent performing separately billed procedures. Time is not concurrent with that of other providers.
--- NOTE | 2023-10-26 11:10 | HMH.PHAINT1 ---
Pharmacy Intervention Comments: PRIMARY MD STOPPED SCHEDULED MEDICATIONS AT HER LAST VISIT IN AUGUST. PATIENT HAS NOT BEEN TAKING OTHER MEDS. LAST FILL WAS IN JULY 2023.
[2023-10-26 11:57] LABS: POC Glucose,Bedside 247 (70-110)
--- NOTE | 2023-10-26 14:00 | HMH.PTEV ---
Physical Therapy Evaluation Rehab PT IP Evaluation Start: 10/26/23 10:45 Freq: ONCE Status: Active Protocol: Document 10/26/23 13:52 BERTA (Rec: 10/26/23 13:59 PHOJERRY [id number]) Subjective/History History History 57 yowf adm to [facility] with Sepsis , hyperglycemia with BS over 800 on adm. She has PMH of HTN , COPD, anxiety, DM with neuropathy, chronic polysubstance use. SHe reports she lives with a roommate, 2- 3 steps to enter the home, and she generally is independent with all mobility, but has not been able to ambulate, since 2 weeks ago when my doctor took me off all of my medicines. Subjective Subjective Currently she report no c/o other than general feeling of fatigue. She does agree to mobility assessment this pm. New diagnosis of cancer in past 12 No months? Rehab PT IP Eval Objective Appearance Patient Behavior Appropriate Patient Orientation Person,Place,Time Difficulty following instructions none Speech Pattern Clear Ambulation Patient Able to Ambulate Yes Ambulation Observation IP General Gait Pattern Observation Antalgic Gait,Shuffling Step Ambulation Distance (feet) 20 Ambulation Assistive Device None Ambulation Ability Minimal x 1 (25% assist) Balance Ability to Arise Able, uses arms to help Sitting Balance Steady, safe Standing Balance Steady, wide stance Dynamic Sitting Balance Ability Good Dynamic Standing Balance Ability Fair Transfers Bed Transfer Ability Contact Guard/Hand Hold Chair Transfer Ability Minimal x 1 (25% assist) Sit to Stand Bed Transfer Ability Minimal x 1 (25% assist) Sit to Stand Chair Transfer Ability Minimal x 1 (25% assist) Rehab PT IP prob,goals,plan Problems Date of Evaluation: 10/26/23 PT IP Problems Bed Mobility,Transfers,Gait Rehab Potential Rehab Potential Good Plan PT Intervention Plan Bed Mobility,Transfers,Gait, Self care,Therapeutic Exercise PT Plan Frequency Daily Duration LOS Discharge Goals Bed Transfer Ability Supervision/Stand by Sit to Stand Chair Transfer Ability Contact Guard/Hand Hold Ambulation Assistive Device Rolling Walker Ambulation Distance (feet) 30 Discharge Plan PT Discharge Plan Pt currently appears stable to return home from mobility standpoint, if she has assistance available as she reports. Recommend home health therapy after d/c. Skilled therapy remains necessary to increase strength, improve transfers, prevent further falls or injury, and return pt to [facility]. Eval Complexity Eval Charge Codes 51118 - High Complexity PHYSICIAN CERTIFICATION: I certify the specified therapy services for Nicole L Hull are required, authorized, and reviewed every 30 days.
--- NOTE | 2023-10-26 14:21 | PC.NURSE ---
pt had 2 rings removed from right had r/t fingers swelling. rings placed in specimen cup, labeled with pt sticker and placed in closet next to pt clothing.
--- NOTE | 2023-10-26 14:33 | PC.NURSE ---
Bedside swallow eval performed this am during med pass. pt was able to take 1 drink from open cup with no s/s of aspiration. on 2nd swallow of water from open cup, pt began to violently cough. pt face turned red and pt was unable to catch her breath for several seconds. pt to remain on npo status.
[2023-10-26] MEDS: VANCOMYCIN/WATER FOR INJ (PEG) 1.5 GM/300 ML PIGGYBACK IV (17:03)
[2023-10-26 17:23] LABS: POC Glucose,Bedside 171 (70-110)
[2023-10-26 18:18] LABS: Basophils % 1.6 % (0.1-2.0); Eosinophils % 1.2 % (0.1-12.0); Hematocrit 31.5 % (37.0-47.0); Hemoglobin 10.4 g/dL (12.2-16.2); Lymphocytes # 1.4 K/mm3 (0.7-4.5); Lymphocytes % 63.9 % (10-50); Mean Corpuscular HGB Conc 32.9 g/dL (31.8-35.4); Mean Corpuscular Hemoglobin 28.6 pg (27.0-31.2); Monocytes # 0.3 K/mm3 (0.1-1.0); Monocytes % 11.3 % (1.7-9.3); Neutrophils # 0.5 K/mm3 (1.8-7.8); Platelet Count 120 K/mm3 (142-424); Red Blood Count 3.62 M/mm3 (4.20-5.40); Red Cell Distribution Width 15.5 % (11.5-17.5); White Blood Count 2.2 K/mm3 (4.8-10.8)
[2023-10-26 18:28] LABS: Alanine Aminotransferase 17 U/L (12-78); Albumin Level 2.4 g/dl (3.5-5.0); Albumin/Globulin Ratio 0.8 (1.1-1.8); Alkaline Phosphatase 88 U/L (38-126); Anion Gap 5.4 mEq/L (5-15); Aspartate Amino Transferase 25 U/L (14-36); Bilirubin,Total 0.3 mg/dl (0.2-1.3); Blood Urea Nitrogen 12 mg/dl (7-17); Calcium 7.7 mg/dl (8.4-10.2); Carbon Dioxide 26 mmol/L (22.0-30.0); Chloride 107 mmol/L (98-107); Creatinine Clearance Estimated 92 mL/min (50-200); Estimated Glomerular Filt Rate 74 ml/min (>60); GFR (African American) 90 ML/MIN (>60); Globulin 2.9 g/dL (1.3-3.2); Glucose 145 mg/dl (74-100); Potassium 3.4 mmoL/L (3.5-5.1); Sodium 135 mmol/L (136-145); Total Protein,Serum 5.3 g/dl (6.3-8.2)
[2023-10-26 18:29] LABS: MANUAL DIFFERENTIAL MANUAL DIFFERENTIAL (MANUAL DIFF)
[2023-10-26 18:34] LABS: Hemoglobin A1C > 14.0 % (4.0-6.0)
[2023-10-26 21:10] LABS: POC Glucose,Bedside 115 (70-110)
[2023-10-26 21:39] LABS: Lymphocytes % 67 % (10-50); Monocytes % 14 % (2-9); Neutrophils % 18 % (42-76); Total Cells Counted 100
[2023-10-26 21:43] LABS: Hypochromasia 2+
[2023-10-26 21:45] LABS: Platelet Estimate Slight Decrease
--- NOTE | 2023-10-26 22:29 | DIET.NUTRFU ---
RD consulted secondary to lack of teeth, choking and uncontrolled diabetes. Patient failed nursing bedside swallow, coughing with liquids. Will wait for speech to further evaluate. Patient has sepsis and is on ABT, condition may improve as infection clears. If unable to provide oral nutrition may need to start enteral nutrition to meet needs. Will provide diabetic education upon discharge if oral diet is tolerated. Will continue to follow
[2023-10-26] MEDS: LACTATED RINGERS 1000ML 1,000 ML 100 ML IV (22:35)
[2023-10-27] VITALS (10 sets, daily range): BP systolic 132–176; BP diastolic 66–93; PULSE 75–96; RESP 16–22; TEMP 36.5–36.8; O2SAT 96–99; BMI 31.8
[2023-10-27] MEDS: PIPERACILLIN/TAZO 3.375 GM in 0.9 % SODIUM CHLORIDE 50 ML IV ×4 (03:04→21:10)
[2023-10-27] MEDS: humaLOG 100 UNITS/ML 10ML VIAL (SSI) SQ ×4 (06:22→21:30)
[2023-10-27 06:24] LABS: POC Glucose,Bedside 202 (70-110)
--- NOTE | 2023-10-27 06:50 | PC.NURSE ---
Pt a/o x 4. Pt has slept majority of night. No complaints voiced to staff. Tolerating RA well with sat upper 90s. Excoriation and redness to rishabh area, nystatin powder applied. Peña in place. Call light within reach.
[2023-10-27 08:03] LABS: Basophils % 1.2 % (0.1-2.0); Eosinophils % 0.7 % (0.1-12.0); Hematocrit 34.1 % (37.0-47.0); Hemoglobin 11.2 g/dL (12.2-16.2); Lymphocytes # 1.3 K/mm3 (0.7-4.5); Lymphocytes % 57.4 % (10-50); Mean Corpuscular HGB Conc 32.8 g/dL (31.8-35.4); Mean Corpuscular Hemoglobin 27.8 pg (27.0-31.2); Mean Corpuscular Volume 84.8 fl (81-99); Mean Platelet Volume 8.9 fl (7.4-10.4); Monocytes # 0.2 K/mm3 (0.1-1.0); Monocytes % 9.5 % (1.7-9.3); Neutrophils # 0.7 K/mm3 (1.8-7.8); Neutrophils % 31.2 % (37.0-80.0); Platelet Count 141 K/mm3 (142-424); Red Blood Count 4.02 M/mm3 (4.20-5.40); Red Cell Distribution Width 15.1 % (11.5-17.5); White Blood Count 2.3 K/mm3 (4.8-10.8)
[2023-10-27 08:11] LABS: MANUAL DIFFERENTIAL MANUAL DIFFERENTIAL (MANUAL DIFF)
[2023-10-27 08:12] LABS: Alanine Aminotransferase 13 U/L (12-78); Albumin Level 2.4 g/dl (3.5-5.0); Albumin/Globulin Ratio 0.8 (1.1-1.8); Alkaline Phosphatase 91 U/L (38-126); Anion Gap 5.5 mEq/L (5-15); Aspartate Amino Transferase 22 U/L (14-36); Bilirubin,Total 0.3 mg/dl (0.2-1.3); Blood Urea Nitrogen 9 mg/dl (7-17); Calcium 7.7 mg/dl (8.4-10.2); Carbon Dioxide 25 mmol/L (22.0-30.0); Chloride 107 mmol/L (98-107); Creatinine Clearance Estimated 109 mL/min (50-200); Estimated Glomerular Filt Rate 87 ml/min (>60); GFR (African American) 105 ML/MIN (>60); Globulin 3.1 g/dL (1.3-3.2); Glucose 181 mg/dl (74-100); Magnesium 1.6 mg/dl (1.6-2.3); Potassium 3.5 mmoL/L (3.5-5.1); Sodium 134 mmol/L (136-145); Total Protein,Serum 5.5 g/dl (6.3-8.2)
[2023-10-27] MEDS: LACTATED RINGERS 1000ML 1,000 ML 100 ML IV (08:31)
[2023-10-27] MEDS: ENOXAPARIN 40MG/0.4ML SYRINGE 40 MG SQ (08:49)
[2023-10-27] MEDS: NYSTATIN TOPICAL POWDER 30GM TP ×4 (08:49→21:10)
[2023-10-27] MEDS: INSULIN GLARGINE 100 UNITS/ML 3ML FLEXPEN 20 UNIT SQ (08:49)
[2023-10-27] MEDS: PANTOPRAZOLE 40MG VIAL 40 MG IV (08:51)
[2023-10-27 11:13] LABS: Lymphocytes % 58 % (10-50); Monocytes % 11 % (2-9); Myelocytes % 4 (0-1); Neutrophils % 20 % (42-76); RBC Morphology Normal; Total Cells Counted 100
[2023-10-27 11:14] LABS: Hypochromasia 2+; Platelet Estimate Slight Decrease
[2023-10-27] MEDS: MAGNESIUM SULFATE IN WATER 2 GM/50 ML PIGGYBACK IV (11:28)
[2023-10-27 11:46] LABS: POC Glucose,Bedside 201 (70-110)
[2023-10-27] MEDS: CALCIUM GLUC IN NACL, ISO-OSM 1 GM/50 ML BAG IV (12:44)
--- NOTE | 2023-10-27 14:14 | EXP.ACUTE.PN ---
Subjective *Date: 10/27/23 *Time: 14:17 Interval history: Patient hemodynamically stable this morning. No fever in 24 hours. No nausea or vomiting. Denies any chest pain or shortness of breath. Requesting something to eat. Stable on room air Medical Exam Vital signs and Labs for Last 24 Hours: Vital Signs Temp Pulse Pulse Resp BP Pulse Ox O2 Del Method 10/27/23 13:00 Room Air 10/27/23 12:36 97.7 F 79 18 139/73 98 Room Air 10/27/23 11:10 Room Air 10/27/23 09:40 Room Air 10/27/23 08:38 83 20 139/66 98 Room Air 10/27/23 08:33 86 96 Room Air 10/27/23 08:00 80 10/27/23 08:00 83 20 150/83 H 96 Room Air 10/27/23 08:00 98.3 F 10/27/23 06:33 Room Air 10/27/23 06:00 84 18 165/90 H 96 Room Air 10/27/23 05:00 Room Air 10/27/23 04:00 96 H 10/27/23 04:00 83 18 176/86 H 96 Room Air 10/27/23 03:00 Room Air 10/27/23 02:00 86 22 173/85 H 96 Room Air 10/27/23 01:00 Room Air 10/27/23 00:00 79 10/27/23 00:00 84 21 160/93 H 97 Room Air 10/26/23 23:00 Room Air 10/26/23 22:00 83 23 162/86 H 96 Room Air 10/26/23 21:27 96 Room Air 10/26/23 21:10 Room Air 10/26/23 20:00 83 10/26/23 20:00 98.1 F 83 18 157/84 H 96 Room Air 10/26/23 18:56 Room Air 10/26/23 18:00 90 20 152/83 H 96 Room Air 10/26/23 17:06 Room Air 10/26/23 16:00 90 10/26/23 16:00 98.8 F 10/26/23 15:15 85 95 Room Air 10/26/23 15:14 Room Air Intake and Output 10/26/23 10/27/23 10/27/23 23:59 07:59 15:59 Intake Total 187 / 9 39 / 1769 1730 / 1769 Output Total 800 / 1350 550 / 1350 Balance 187 / 9 -761 / 419 1180 / 419 Intake: Intake, Total IV Amount 187 / 626 39 / 1769 1730 / 1769 Lactated Ringers 1000ML 1,000 137 / 137 1380 / 1380 ml @ 100 mls/hr IV .Q10H ROSIBEL Rx #:[id number] Piperacillin/Tazo 3.375 gm In 0 50 / 239 39 / 389 350 / 389 .9 % Sodium Chloride 50 ml @ 100 mls/hr IV Q8H ROSIBEL Rx#: [id number] Output: Output, Urine Amount 800 / 1350 550 / 1350 Other: Number of Unmeasured Voids 0 0 Weight 76.34 kg Patient Weight 10/27/23 23:59 Weight 76.34 kg Laboratory Results - last 24 hr 10/26/23 17:06: POC Glucose 171 H 10/26/23 17:55: WBC 2.2 L, RBC 3.62 L, Hgb 10.4 L, Hct 31.5 L, MCV 87.0, MCH 28.6, MCHC 32.9, RDW 15.5, Plt Count 120 L, MPV 9.0, Neut % (Auto) 22.0 L, Lymph % (Auto) 63.9 H, [place] % (Auto) 11.3 H, Eos % (Auto) 1.2, Baso % (Auto) 1.6, Neut # (Auto) 0.5 L*, Lymph # (Auto) 1.4, [place] # (Auto) 0.3, Eos # (Auto) 0.0, Baso # (Auto) 0.0, Total Counted 100, Neutrophils % (Manual) 18 L, Lymphocytes % (Manual) 67 H, Monocytes % (Manual) 14 H, Basophils % (Manual) 1.0, Platelet Estimate Slight decrease, Hypochromasia 2+, Sodium 135 L, Potassium 3.4 L, Chloride 107, Carbon Dioxide 26, Anion Gap 5.4, BUN 12 D, Creatinine 0.80, Estimated Creat Clear 92, Estimated GFR 74, Est GFR ( Amer) 90 D, Glucose 145 H D, Hemoglobin A1c > 14.0 H, Calcium 7.7 L, Total Bilirubin 0.3, AST 25, ALT 17, Alkaline Phosphatase 88, Total Protein 5.3 L, Albumin 2.4 L D, Globulin 2.9, Albumin/Globulin Ratio 0.8 L 10/26/23 20:54: POC Glucose 115 H 10/27/23 06:16: POC Glucose 202 H 10/27/23 07:01: WBC 2.3 L, RBC 4.02 L, Hgb 11.2 L, Hct 34.1 L, MCV 84.8, MCH 27.8, MCHC 32.8, RDW 15.1, Plt Count 141 L, MPV 8.9, Neut % (Auto) 31.2 L, Lymph % (Auto) 57.4 H, [place] % (Auto) 9.5 H, Eos % (Auto) 0.7, Baso % (Auto) 1.2, Neut # (Auto) 0.7 L*, Lymph # (Auto) 1.3, [place] # (Auto) 0.2, Eos # (Auto) 0.0, Baso # (Auto) 0.0, Total Counted 100, Neutrophils % (Manual) 20 L, Band Neutrophils % 1.0, Lymphocytes % (Manual) 58 H, Atypical Lymphs % 4.0, Monocytes % (Manual) 11 H, Metamyelocytes % 1.0, Myelocytes % 4 H, Blast Cells % 1.0, Platelet Estimate Slight decrease, RBC Morphology Normal, Hypochromasia 2+, Sodium 134 L, Potassium 3.5, Chloride 107, Carbon Dioxide 25, Anion Gap 5.5, BUN 9, Creatinine 0.70, Estimated Creat Clear 109, Estimated GFR 87, Est GFR ( Amer) 105, Glucose 181 H D, Calcium 7.7 L, Magnesium 1.6, Total Bilirubin 0.3, AST 22, ALT 13, Alkaline Phosphatase 91, Total Protein 5.5 L, Albumin 2.4 L, Globulin 3.1, Albumin/Globulin Ratio 0.8 L 10/27/23 11:27: POC Glucose 201 H I & O for Labs for Last 24 Hours: Intake & Output 10/24/23 10/25/23 10/26/23 10/27/23 23:59 23:59 23:59 23:59 Intake Total 1850 / 1850 2440 / 2479 1769 / 1769 Output Total 0 / 0 1350 / 1350 Balance 1850 / 1850 2440 / 2479 419 / 419 Weight 68.039 kg 73.663 kg 76.34 kg Microbiology Reports for the Last 24 Hours: Microbiology 10/25/23 16:40 Blood Blood Culture - Preliminary Gram Negative Rods 10/25/23 16:40 Blood Blood Culture - Preliminary Gram Negative Rods 10/25/23 18:03 Urine,Catheterized Urine Culture - Final Klebsiella pneumoniae Constitutional: Present no acute distress, obese, chronically ill appearing and cooperative Head: Present atraumatic and normocephalic ENT: Present normal exam Neck: Present normal inspection Respiratory: Present normal respiratory effort and able to speak in complete sentences; Absent rhonchi, wheezes or crackles Cardiac: Present Reg Rate and Rhythm GI: Present soft and normal bowel sounds; Absent distention or tenderness Extremities: Present normal inspection and full ROM Skin: Present intact; Absent erythema Neuro: Present Grossly Intact, alert, awake, oriented x 3 and moves all extremities Assessment and Plan *Assessment and plan (1) Severe sepsis: Status: Acute Category: Medical Code(s): A41.9 - Sepsis, unspecified organism; R65.20 - Severe sepsis without septic shock (2) Bacteremia due to Klebsiella pneumoniae: Status: Acute Category: Medical Code(s): R78.81 - Bacteremia; B96.1 - Klebsiella pneumoniae [K. pneumoniae] as the cause of diseases classified elsewhere (3) Hyperglycemia: Status: Acute Category: Medical Code(s): R73.9 - Hyperglycemia, unspecified (4) Hyperosmolar hyperglycemic state (HHS): Status: Acute Category: Medical Code(s): E11.00 - Type 2 diabetes mellitus with hyperosmolarity without nonketotic hyperglycemic-hyperosmolar coma (NKHHC) (5) Tobacco use: Status: Acute Category: Social Hx Code(s): Z72.0 - Tobacco use (6) HCV (hepatitis C virus): Status: Acute Qualifiers: Hepatic coma status: without hepatic coma Viral hepatitis chronicity: chronic Qualified Code(s): B18.2 - Chronic viral hepatitis C Category: Medical Code(s): B19.20 - Unspecified viral hepatitis C without hepatic coma (7) HTN (hypertension): Status: Acute Qualifiers: Hypertension type: primary hypertension Qualified Code(s): I10 - Essential (primary) hypertension Category: Medical Code(s): I10 - Essential (primary) hypertension (8) Hyperlipidemia: Status: Acute Qualifiers: Hyperlipidemia type: mixed hyperlipidemia Qualified Code(s): E78.2 - Mixed hyperlipidemia Category: Medical Code(s): E78.5 - Hyperlipidemia, unspecified (9) Dysphagia: Status: Acute Qualifiers: Dysphagia type: pharyngeal phase Qualified Code(s): R13.13 - Dysphagia, pharyngeal phase Category: Medical Code(s): R13.10 - Dysphagia, unspecified (10) Depression: Status: Acute Category: Medical Code(s): F32.A - Depression, unspecified (11) Obesity: Status: Acute Category: Medical Code(s): E66.9 - Obesity, unspecified (12) Cirrhosis of liver: Problem Comment: This was all diagnosed by CT scan. Will get an MRI thin slice of the abdomen with specific focus on the liver and biliary system. Again I think this is all secondary to her underlying hepatitis above but she needs a full workup. Will send her to GI for evaluation. Status: Acute Qualifiers: Ascites presence: without ascites Hepatic cirrhosis type: unspecified hepatic cirrhosis Qualified Code(s): K74.60 - Unspecified cirrhosis of liver Category: Medical Code(s): K74.60 - Unspecified cirrhosis of liver Plan Mrs. Valdovinos is a 57-year-old female who presented with sepsis criteria. Found to be tachycardic, febrile, neutropenia. Initiated on broad-spectrum antibiotics. Case discussed with ER physician, request admission for continued treatment of hyperglycemia, sepsis, clinical instability. Medicine agreed to admit. Blood cultures positive for Klebsiella. Urine culture also positive for Klebsiella. Sensitive to Zosyn. Continues to require inpatient management. Clinically showing improvement as she stabilizes. Problems addressed as follows: Severe sepsis Klebsiella bacteremia and urinary tract infection -Blood cultures positive for Klebsiella, sensitive to Zosyn. Discontinue vancomycin. Continue Zosyn every 6 hours scheduled IV -Discontinue maintenance fluids. Advance diet today after bedside swallow with honey thick liquids. -Tylenol for fever -White count low at 2.3. Hemoglobin 11.2. Platelets 141. Repeat CBC, CMP, magnesium ordered for the morning. -In light of anemia and thrombocytopenia, will obtain peripheral smear Hyperglycemia/HHS Diabetes - Continue glargine 20 units this running, increase to 25 units for tomorrow. Sliding scale insulin with fingersticks ACHS. Seeing improvement in glucose. Morning glucose 181 -A1c greater than 15. -Nutrition consulted to assist with education on diabetes and dietary adjustment -Potassium 3.5, creatinine 0.7, BUN 9. Magnesium 1.6. Magnesium 2 g IV once today. Dysphagia -Choking with liquids and mouth care, speech consult placed. Honey thick liquids, close monitoring while eating Tobacco use disorder: Nicotine patch as needed date Full code Honey thickened liquids, regular diet Lovenox 40 mg subcu daily
--- NOTE | 2023-10-27 15:05 | PC.NURSE ---
Pt is a/o x 4. pt is able to ambulate to the restroom and back with assist x 2. pt gait is very unsteady and slightly shuffling at times. pt had bm this shift. pt lung sounds are clear throughout. bowel sounds are active in all quads. nad noted. pt is on room air. pt was given a bedside swallow eval using thickened liquids. pt was given nectar thick and coached through using chin tuck method. pt was noted to have epicode of coughing. pt was then given honey thick liquid and coached with chin tuck. no coughing noted. pt was assisted up to the chair and was up from 1000 until approx 1240. pt then requested to go back to bed.
[2023-10-27 17:18] LABS: POC Glucose,Bedside 215 (70-110)
[2023-10-27 22:07] LABS: POC Glucose,Bedside 228 (70-110)
[2023-10-28] VITALS: BP 142/76; PULSE 74; RESP 16; TEMP 36.6; O2SAT 96
--- NOTE | 2023-10-28 00:14 | PC.NURSE ---
Patient was switched from room 217 to room 212 at this time.
[2023-10-28] MEDS: PIPERACILLIN/TAZO 3.375 GM in 0.9 % SODIUM CHLORIDE 50 ML IV ×2 (02:21→09:07)
[2023-10-28 04:00] VITALS: BP 154/87; PULSE 82; RESP 16; TEMP 36.8; O2SAT 100; BMI 30.4
[2023-10-28 05:44] LABS: POC Glucose,Bedside 260 (70-110)
--- NOTE | 2023-10-28 06:00 | PC.NURSE ---
Patient is alert and oriented x4. Patient has rested through the majority of the night. She has gotten up to use the bathroom a few times throughout the shift. Patient was ambulated with assistance to the bathroom and tolerated it fairly; patient was still noticed to be unsteady and weak on her feet. Patient's lung sounds were clear and slightly diminished, and her bowel sounds were very active in all quadrants upon auscultation. Patient tolerates room air well. Patient's perineal area has excoriation. Patient has not complained of any pain or nausea this shift. Patient requires honey-thickened liquids according to previous swallow eval, in acquaintance with her regular diet; patient continues to cough after drinking any sort of liquid. Patient's FSBS at 21:00 this shift was 228 and at 05:30, it was 260; Lispro insulin was given per MAR, as well as her scheduled medications this shift. Nystatin powder was also applied to the patient's abdominal folds. Patient does not have any further complaints at this time. Call light within reach.
[2023-10-28] MEDS: humaLOG 100 UNITS/ML 10ML VIAL (SSI) SQ ×2 (06:34→11:03)
[2023-10-28 07:00] LABS: Basophils % 0.6 % (0.1-2.0); Eosinophils # 0.1 K/mm3 (0.0-0.4); Eosinophils % 1.8 % (0.1-12.0); Hematocrit 32.6 % (37.0-47.0); Hemoglobin 10.4 g/dL (12.2-16.2); Lymphocytes # 1.6 K/mm3 (0.7-4.5); Lymphocytes % 64.4 % (10-50); Mean Corpuscular HGB Conc 32.1 g/dL (31.8-35.4); Mean Corpuscular Hemoglobin 27.8 pg (27.0-31.2); Mean Corpuscular Volume 86.7 fl (81-99); Mean Platelet Volume 8.7 fl (7.4-10.4); Monocytes # 0.2 K/mm3 (0.1-1.0); Monocytes % 8.1 % (1.7-9.3); Neutrophils # 0.6 K/mm3 (1.8-7.8); Platelet Count 139 K/mm3 (142-424); Red Blood Count 3.76 M/mm3 (4.20-5.40); Red Cell Distribution Width 15.3 % (11.5-17.5); White Blood Count 2.5 K/mm3 (4.8-10.8)
[2023-10-28 07:04] LABS: MANUAL DIFFERENTIAL MANUAL DIFFERENTIAL (MANUAL DIFF)
[2023-10-28 07:05] LABS: Albumin Level 2.6 g/dl (3.5-5.0); Chloride 109 mmol/L (98-107); Potassium 3.5 mmoL/L (3.5-5.1); Sodium 138 mmol/L (136-145)
[2023-10-28 07:08] LABS: Alanine Aminotransferase 12 U/L (12-78); Albumin/Globulin Ratio 0.9 (1.1-1.8); Alkaline Phosphatase 93 U/L (38-126); Anion Gap 5.5 mEq/L (5-15); Aspartate Amino Transferase 19 U/L (14-36); Bilirubin,Total 0.3 mg/dl (0.2-1.3); Blood Urea Nitrogen 8 mg/dl (7-17); Carbon Dioxide 27 mmol/L (22.0-30.0); Creatinine Clearance Estimated 92 mL/min (50-200); Estimated Glomerular Filt Rate 74 ml/min (>60); GFR (African American) 90 ML/MIN (>60); Total Protein,Serum 5.6 g/dl (6.3-8.2)
[2023-10-28 07:09] LABS: Calcium 7.5 mg/dl (8.4-10.2); Glucose 205 mg/dl (74-100)
[2023-10-28 07:13] LABS: Magnesium 1.9 mg/dl (1.6-2.3)
[2023-10-28 08:00] VITALS: BP 154/88; PULSE 77; RESP 16; TEMP 36.7; O2SAT 100
--- NOTE | 2023-10-28 08:23 | US_ITS ---
FINAL REPORT CLINICAL HISTORY: cirrhosis? COMPARISON: None FINDINGS: Sonographic images of the right upper quadrant were obtained. The pancreas is partially obscured. The liver has a coarsened echotexture with a lobular appearance, consistent with cirrhosis. The portal vein is 8 mm in diameter, normal, with normal directional flow. The gallbladder appears normal without evidence of gallstones.There is no evidence of biliary ductal dilatation.The common duct measures 5 mm. Limited images of the right kidney are unremarkable. IMPRESSION: Coarsened echotexture of the liver with a lobular appearance, consistent with cirrhosis. No evidence of portal vein thrombosis is seen. Reviewed, Interpreted and Dictated by Shakir Gee III, MD Transcribed by Roma Riddle Authenticated and [facility]
[2023-10-28 08:42] LABS: Eosinophils % 1 % (0-3); Lymphocytes % 71 % (10-50); Monocytes % 8 % (2-9); Neutrophils % 14 % (42-76); Total Cells Counted 100
[2023-10-28 08:47] LABS: Anisocytosis 1+; Platelet Estimate Slight Decrease
[2023-10-28 08:48] LABS: Hypochromasia 2+
--- NOTE | 2023-10-28 08:58 | HMH.SLDYSPHA ---
Speech & Language Evaluation Speech/Language Dysphagia Evaluation Start: 10/28/23 08:34 Freq: ONCE Status: Active Protocol: Document 10/28/23 08:34 SERA (Rec: 10/28/23 08:58 ECLARK Laptop) Co-signed By ST Danika Dysphagia Assess/Goals/Plan Assessment Date of Evaluation: 10/28/23 Evaluation Type Initial Certification Assessment/Problems Choking on water per MD order Does Patient Qualify for Service Yes Qualify/Failure Comment Based on clinical observations made throughout the clinical bedside swallow and patient/ nursing interview, patient would benefit from further instrumental assessment (MBSS) d/t overt s/sx of aspiration, including choking, wet vocal quality, and difficulty breathing, on thin liquids, nectar thick liquids, and mechanical soft. Recommendations PHYSICIAN CERTIFICATION: The specified therapy services are required, authorized, and reviewed every 30 days. Diet Recommendations Mechanical Soft Liquid Type Recommendations Honey Consistency SL Swallow Guidelines High aspiration risk,Standard Aspiration Prec.,Eat at slow rate,Oral Care Education,Oral care pre/post meals Crush Meds Crush all meds Dysphagia Swallow Precautions/Strategies Sitting Upright (90 deg), Double Swallow,Small Bites and Sips,Alternate Liquids/Solids Plan Pt/Guardian verbally ack understanding Yes of dx/prognosis/goals G -code Required No Education Instructions provided MARKETING REPORTING ANALYST discussed CSE, diet recommendations, aspiration precautions/compensatory strategies, and further warranted instrumental assessment with pt, nursing, and MD, all of which expressed understanding. Pt/Caregiver able to recall information Able to recall/restate Reinforcement needed No Speech & Language HPI History Present Illness Description of Patient Problem MARKETING REPORTING ANALYST pulled the following information from ER documentation and pt H&P: This patient is a 57-year-old female with a history of insulin-dependent type 2 diabetes, hypertension, hyperlipidemia, hepatitis C, COPD, generalized anxiety, chronic benzodiazepine and opioid dependence presenting to the emergency department for evaluation with concern for high blood sugar at home, generalized weakness, frequent falls. She states that she saw her primary care doctor, Dr. Fairchild and was taken off all her medicines including her diabetes oral medications and insulin. She states that he took her off of everything. She explains that she is not sure why. Since then, she states that her blood sugars been through the roof, she is been falling all over the place, and her legs do not work. She states will they do work, but I am not able to walk very well without falling become weak. She denies any numbness, tingling, new incontinence, retention, or other concerns. On medical record review, I see that she had complained to her primary care provider that all of her medications were stolen and that she had failed a drug screen in clinic, so no controlled substance were refilled at that time. They noted that she does have a history of methamphetamine use in the past as well as chronic back pain on that note . Patient expresses that most of her symptoms are because she does not have her gabapentin. Patient arrives by EMS who noted that her blood sugar read high. H&P states that pt is not a reliable historian and has quite a delf-care deficit , and does not believe she is able to manage her medications at this time. Is this evaluation r/t stroke? No General Information General Current Food Consistancy Mechanical Soft,Honey Liquids Dentition Edentulous Oxygen Status Room Air Patient Orientation Person Ability to Follow Directions Good Communication Ability No Impairment Dysphagia:Food Presentation Evaluation Food Type Pureed,Mechanical Soft,Liquid, Pudding Normal/Thin Liquid Response Multiple swallow attempts, Coughing after swallow,Clears throat,Wet voice [place] Consistency Liquid Response Multiple swallow attempts, Coughing after swallow,Clears throat,Wet voice Dysphagia Evaluation Mechanical Soft Multiple swallow attempts, Food Behavior Response Coughing after swallow,Clears throat Dysphagia Evaluation Summary A clinical bedside swallow evaluation was given on this date. Patient sitting upright in bed on room air. Patient was edentulous and stated her dentures were left at home. Consistencies given include ice chips, thin liquid via open cup and straw (water), nectar thick liquid via open cup, pudding, puree ( applesauce), and mechanical soft (cereal bar). Each bolus was presented x2+ to assess for consistency and fatigue. Pt exhibited overt s/sx of aspiration on thin liquid, nectar thick liquid, and mechanical soft No anterior loss was observed on any trial presented. Mastication was reduced and prolonged '2 dentition. Oral residue was exhibited on mechanical soft trial, which was cleared with a liquid wash. Pt exhibited choking, difficulty breathing, multiple swallow attempts, and wet vocal quality on thin and nectar thick liquids. Pt exhibited coughing, multiple swallow attempts, and clearing throat on mechanical soft trial. MARKETING REPORTING ANALYST recommends patient maintain current diet of honey thick and mechanical soft foods d/t pt preference. Pt was previously NPO but MD states she requested more regular food presentations and stated she has had this problem at home. MARKETING REPORTING ANALYST recommends further instrumental assessment (MBSS) to assess safety and efficiency of swallow. Stroke Dysphagia Assessment PHYSICIAN CERTIFICATION: I certify the specified therapy services for Nicole Valdovinos are required, authorized, and reviewed every 30 days.
[2023-10-28] MEDS: INSULIN GLARGINE 100 UNITS/ML 3ML FLEXPEN 25 UNIT SQ (09:08)
[2023-10-28] MEDS: ENOXAPARIN 40MG/0.4ML SYRINGE 40 MG SQ (09:09)
[2023-10-28] MEDS: PANTOPRAZOLE 40MG VIAL 40 MG IV (09:09)
--- NOTE | 2023-10-28 10:12 | HMH.OTEV ---
OT Inpatient Evaluation Rehab OT IP Evaluation Start: 10/25/23 20:58 Freq: ONCE Status: Active Protocol: Document 10/28/23 10:07 LIBORIO (Rec: 10/28/23 10:12 LIBORIO [id number]) Rehab OT IP Assessment Subjective History Patient is not a reliable historian., She says that all of her medicines were stopped by her primary care doctor., Notes indicated that he stopped all controlled substances due to her abuse and use have been feta means, after talking with the ER physician do agree that this lady is quite ill with her blood sugars being over 800 past history of hemoglobin A1c greater than 15. After interviewing the patient she appears to have quite a self- care deficit. Do not believe she is able to manage her medications at this point in time. I agree with the ER physician that we need to admit her try to get her blood sugar under control evaluate whether she has sepsis/ pneumonia. Will need OT physical therapy case management evaluation for the patient's safety and future needs. Patient stated she lives in 1 story home with a friend named Rashard. Independent with ADLs and fx'l mobility. Subjective I can try to sit up. Instructed Patient on proper hand and foot placement to complete bed mobility from supine->sit @ EOB requiring SBA. Instructed patient on sit ->stand transfer with needing Min A. patient stood <30 secs and said, I need to sit down. I am dizzy. I just want to lay back down. Assisted Patient back to bed with needing Min A. Needs met. Will attempt to ambulate/fx'l mobility to assess with ADLs later this afternoon. Objective Patient Orientation Person,Name,Age,Birthday,Year Right Upper Extremity Gross ROM WFL Left Upper Extremity Gross ROM WFL Bed Mobility bed mobility - supine/sit Assist Level Supervision/Stand by Transfer Training Sit/Stand/Pivot Transfer Assist Level Minimal x 1 (25% assist) Chair Transfer Ability Minimal x 1 (25% assist) Chair Transfer Technique Sit to/from Ambulatory Chair Transfer Assistive Devices None Rehab OT IP prob,goals,plan Problems Date of Evaluation: 10/28/23 OT IP Problems Bed Mobility,Transfers,Balance ,Self care,Safety Rehab Potential Rehab Potential Good Equipment Needs Assistive Devices Rolling / Wheeled Walker Plan OT intervention Plan Bed Mobility,Transfers,Balance ,Self care,Safety,Therapeutic Exercise OT Plan Frequency Daily Duration LOS Discharge Goals Bed Mobility Ability Independent Sit to Stand Chair Transfer Ability Contact Guard/Hand Hold Chair Transfer Technique Sit to/from Ambulatory Discharge Plan OT Discharge Plan Patient required encouragement to participate in skilled OT services this date. Minimal fx 'l mobility performed based on patient's well-being. Will assess fx'l mobility later this afternoon with ADLs. Recommend patient to return home after medical stable conditiions. Eval Complexity Eval Charge Codes 02685 - Low Complexity PHYSICIAN CERTIFICATION: I certify the specified therapy services for Nicole Valdovinos are required, authorized, and reviewed every 30 days.
[2023-10-28 11:13] LABS: POC Glucose,Bedside 233 (70-110)
[2023-10-28 12:00] VITALS: BP 148/78; PULSE 80; RESP 17; TEMP 36.6; O2SAT 94
--- NOTE | 2023-10-28 12:57 | SW/DCPLANNER ---
I spoke w/ this patient regarding plans once medically stable for discharge. PT/OT evaluated patient and recommended home health services. Due to patient's insurance she is not a candidate for home health. Patient stated that she is not interested in outpatient PT services. Patient did not have any further needs/concerns at this time. Patient stated that she will have transportation home once medically stable for discharge. Per MD patient could potentially discharge later this afternoon.
[2023-10-28 13:18] VITALS: BMI 30.4
--- NOTE | 2023-10-28 15:19 | EXP.ACUTE.PN ---
Subjective *Date: 10/28/23 *Time: 21:34 Interval history: Patient showing improvement but having coughing with liquids. Afebrile. Stable on room air. Showing clinical improvement. No nausea or vomiting. No diarrhea or chest pain. Medical Exam Vital signs and Labs for Last 24 Hours: Vital Signs Temp Pulse Resp BP Pulse Ox O2 Del Method 10/28/23 15:00 Room Air 10/28/23 13:00 Room Air 10/28/23 12:00 98 F 80 17 148/78 H 94 L 10/28/23 11:00 Room Air 10/28/23 09:00 Room Air 10/28/23 08:34 Room Air 10/28/23 08:00 Room Air 10/28/23 08:00 98.1 F 77 16 154/88 H 100 Room Air 10/28/23 06:40 Room Air 10/28/23 05:00 Room Air 10/28/23 04:00 98.3 F 82 16 154/87 H 100 Room Air 10/28/23 03:00 Room Air 10/28/23 01:00 Room Air 10/28/23 00:00 97.9 F 74 16 142/76 H 96 Room Air 10/27/23 23:00 Room Air 10/27/23 21:00 Room Air 10/27/23 20:00 75 99 Room Air 10/27/23 20:00 98.0 F 75 16 146/79 H 99 Room Air 10/27/23 19:00 Room Air 10/27/23 16:56 Room Air 10/27/23 16:00 98.2 F 78 21 132/77 98 Room Air Intake and Output 10/27/23 10/28/23 10/28/23 23:59 07:59 15:59 Intake Total 510 / 2439 100 / 160 60 / 160 Output Total 0 / 1350 0 / 0 0 / 0 Balance 510 / 1089 100 / 160 60 / 160 Intake: Intake, Oral Amount 360 / 470 50 / 110 60 / 110 Intake, Total IV Amount 150 / 1969 50 / 50 Calcium Gluc in NaCl, Iso-Osm 1 50 / 50 gm In 50 ml @ 50 mls/hr IV ONCE ONE Rx#:[id number] Magnesium Sulfate in Water 2 gm 50 / 50 In 50 ml @ 50 mls/hr IV ONCE ONE Rx#:[id number] Piperacillin/Tazo 3.375 gm In 0 50 / 489 50 / 50 .9 % Sodium Chloride 50 ml @ 100 mls/hr IV Q8H [facility] Rx#: [id number] Output: Output, Urine Amount 0 / 1350 0 / 0 0 / 0 Other: Number of Unmeasured Voids 1 1 1 Number of Bowel Movements 1 1 Weight 73.164 kg 73 kg Patient Weight 10/28/23 23:59 Weight 73 kg Laboratory Results - last 24 hr 10/27/23 16:56: POC Glucose 215 H 10/27/23 21:15: POC Glucose 228 H 10/28/23 05:33: POC Glucose 260 H 10/28/23 06:36: WBC 2.5 L, RBC 3.76 L, Hgb 10.4 L, Hct 32.6 L, MCV 86.7, MCH 27.8, MCHC 32.1, RDW 15.3, Plt Count 139 L, MPV 8.7, Neut % (Auto) 25.0 L, Lymph % (Auto) 64.4 H, [place] % (Auto) 8.1, Eos % (Auto) 1.8, Baso % (Auto) 0.6, Neut # (Auto) 0.6 L*, Lymph # (Auto) 1.6, [place] # (Auto) 0.2, Eos # (Auto) 0.1, Baso # (Auto) 0.0, Total Counted 100, Neutrophils % (Manual) 14 L, Band Neutrophils % 2.0, Lymphocytes % (Manual) 71 H, Atypical Lymphs % 4.0, Monocytes % (Manual) 8, Eosinophils % (Manual) 1, Platelet Estimate Slight decrease, Hypochromasia 2+, Anisocytosis 1+, Sodium 138, Potassium 3.5, Chloride 109 H, Carbon Dioxide 27, Anion Gap 5.5, BUN 8, Creatinine 0.80, Estimated Creat Clear 92, Estimated GFR 74, Est GFR ( Amer) 90, Glucose 205 H, Calcium 7.5 L, Magnesium 1.9 D, Total Bilirubin 0.3, AST 19, ALT 12, Alkaline Phosphatase 93, Total Protein 5.6 L, Albumin 2.6 L, Globulin 3.0, Albumin/Globulin Ratio 0.9 L 10/28/23 10:51: POC Glucose 233 H I & O for Labs for Last 24 Hours: Intake & Output 0810/26/23 10/27/23 10/28/23 23:59 23:59 23:59 23:59 Intake Total 1849 / 1850 2440 / 2479 2339 / 2439 160 / 160 Output Total 0 / 0 1350 / 1350 0 / 0 Balance 1850 / 1850 2440 / 2479 989 / 1089 160 / 160 Weight 68.039 kg 73.663 kg 76.34 kg 73 kg Microbiology Reports for the Last 24 Hours: Microbiology 10/25/23 16:40 Blood Blood Culture - Final Klebsiella pneumoniae 10/25/23 16:40 Blood Blood Culture - Final Klebsiella pneumoniae Constitutional: Present no acute distress, obese, chronically ill appearing and cooperative Head: Present atraumatic and normocephalic ENT: Present normal exam Comment:: edentulous Neck: Present normal inspection Respiratory: Present normal respiratory effort and able to speak in complete sentences; Absent rhonchi, wheezes or crackles Cardiac: Present Reg Rate and Rhythm GI: Present soft and normal bowel sounds; Absent distention or tenderness Extremities: Present normal inspection and full ROM Skin: Present intact; Absent erythema Neuro: Present Grossly Intact, alert, awake, oriented x 3 and moves all extremities Assessment and Plan *Assessment and plan (1) Bacteremia due to Klebsiella pneumoniae: Status: Acute Category: Medical Code(s): R78.81 - Bacteremia; B96.1 - Klebsiella pneumoniae [K. pneumoniae] as the cause of diseases classified elsewhere (2) Severe sepsis: Status: Resolved Category: Medical Code(s): A41.9 - Sepsis, unspecified organism; R65.20 - Severe sepsis without septic shock (3) Dysphagia: Status: Acute Qualifiers: Dysphagia type: pharyngeal phase Qualified Code(s): R13.13 - Dysphagia, pharyngeal phase Category: Medical Code(s): R13.10 - Dysphagia, unspecified (4) Hyperglycemia: Status: Acute Category: Medical Code(s): R73.9 - Hyperglycemia, unspecified (5) Hyperosmolar hyperglycemic state (HHS): Status: Acute Category: Medical Code(s): E11.00 - Type 2 diabetes mellitus with hyperosmolarity without nonketotic hyperglycemic-hyperosmolar coma (NKHHC) (6) Tobacco use: Status: Acute Category: Social Hx Code(s): Z72.0 - Tobacco use (7) HCV (hepatitis C virus): Status: Acute Qualifiers: Hepatic coma status: without hepatic coma Viral hepatitis chronicity: chronic Qualified Code(s): B18.2 - Chronic viral hepatitis C Category: Medical Code(s): B19.20 - Unspecified viral hepatitis C without hepatic coma (8) HTN (hypertension): Status: Acute Qualifiers: Hypertension type: primary hypertension Qualified Code(s): I10 - Essential (primary) hypertension Category: Medical Code(s): I10 - Essential (primary) hypertension (9) Hyperlipidemia: Status: Acute Qualifiers: Hyperlipidemia type: mixed hyperlipidemia Qualified Code(s): E78.2 - Mixed hyperlipidemia Category: Medical Code(s): E78.5 - Hyperlipidemia, unspecified (10) Depression: Status: Acute Category: Medical Code(s): F32.A - Depression, unspecified (11) Obesity: Status: Acute Category: Medical Code(s): E66.9 - Obesity, unspecified (12) Cirrhosis of liver: Problem Comment: This was all diagnosed by CT scan. Will get an MRI thin slice of the abdomen with specific focus on the liver and biliary system. Again I think this is all secondary to her underlying hepatitis above but she needs a full workup. Will send her to GI for evaluation. Status: Acute Qualifiers: Ascites presence: without ascites Hepatic cirrhosis type: unspecified hepatic cirrhosis Qualified Code(s): K74.60 - Unspecified cirrhosis of liver Category: Medical Code(s): K74.60 - Unspecified cirrhosis of liver Plan Mrs. Valdovinos is a 57-year-old female who presented with sepsis criteria. Found to be tachycardic, febrile, neutropenia. Initiated on broad-spectrum antibiotics. Case discussed with ER physician, request admission for continued treatment of hyperglycemia, sepsis, clinical instability. Medicine agreed to admit. Blood cultures positive for Klebsiella. Urine culture also positive for Klebsiella. Sensitive to Zosyn and levofloxacin. Continues to require inpatient management while we evaluate her dysphagia and choking. Showing clinical stability. Anticipate discharge in the next 1 to 2 days. Problems addressed as follows: Severe sepsis Klebsiella bacteremia and urinary tract infection -Blood cultures positive for Klebsiella, sensitive to Zosyn and levofloxacin, transitioned to levofloxacin for ease of oral dosing to complete 10-day course total -White count remains low at 2.5. Remains afebrile for over 24 hours. Hemoglobin 10.4. Platelets 139. Repeat CBC, CMP, magnesium ordered for the morning. -In regard to anemia and thrombocytopenia, peripheral smear pending Hyperglycemia/HHS Diabetes - Continue glargine increased to 30 units this morning. Continue sliding scale insulin with fingersticks ACHS. Morning glucose 205. -A1c greater than 15. -Nutrition consulted to assist with education on diabetes and dietary adjustment -Potassium 3.5, magnesium 1.9, BUN 8, creatinine 0.8. No oral repletion today. Dysphagia: Choking with liquids and mouth care, speech consult placed. Honey thick liquids, close monitoring while eating. Barium swallow eval pending. Tobacco use disorder: Nicotine patch as needed date Full code Honey thickened liquids, regular diet Lovenox 40 mg subcu daily
[2023-10-28 16:00] VITALS: BP 154/72; PULSE 71; RESP 16; TEMP 36.7; O2SAT 98
[2023-10-28] MEDS: LEVOFLOXACIN/D5W 750 MG/150 ML 750 MG/150 ML PIGGYBACK 100 MG IV (16:00)
[2023-10-28 17:36] LABS: POC Glucose,Bedside 118 (70-110)
--- NOTE | 2023-10-28 17:42 | PC.NURSE ---
pt has rested for most of the shift. she has gotten up x1 assist and walker to use the bathroom throughout shift, gait is unsteady. she has not c/o pain throughout shift. pt did request to leave AMA earlier in shift, information provided about leaving AMA, pt decided to stay at the hospital and not leave AMA. her blood glucose level was 233 at 1100 and 117 at 1630, treated per sliding scale. no further requests at this time, call light within reach.
[2023-10-28 20:00] VITALS: BP 144/71; PULSE 76; RESP 16; TEMP 36.7; O2SAT 99
[2023-10-28 21:49] LABS: POC Glucose,Bedside 131 (70-110)
[2023-10-29] VITALS: BP 149/77; PULSE 79; RESP 16; TEMP 37.2; O2SAT 99
[2023-10-29 04:00] VITALS: BP 151/77; PULSE 78; RESP 16; TEMP 36.9; O2SAT 99; BMI 29.1
[2023-10-29 05:38] LABS: POC Glucose,Bedside 144 (70-110)
--- NOTE | 2023-10-29 06:13 | PC.NURSE ---
Pt is alert and oriented x4 and currently tolerating RA well. pt has rested well for the most part. This nurse did educate pt on reson for NPO status as she is having difficulty swallowing and has a barium swallow scheduled for this am. Pt agreed and requested ice chips. Pt denies pain and needs and has had no other acute changes this shift to note
[2023-10-29 06:50] LABS: Albumin Level 2.8 g/dl (3.5-5.0); Chloride 107 mmol/L (98-107); Potassium 3.2 mmoL/L (3.5-5.1); Sodium 138 mmol/L (136-145)
[2023-10-29 06:53] LABS: Alanine Aminotransferase 11 U/L (12-78); Albumin/Globulin Ratio 0.9 (1.1-1.8); Alkaline Phosphatase 74 U/L (38-126); Anion Gap 6.2 mEq/L (5-15); Aspartate Amino Transferase 23 U/L (14-36); Bilirubin,Total 0.4 mg/dl (0.2-1.3); Blood Urea Nitrogen 6 mg/dl (7-17); Calcium 7.7 mg/dl (8.4-10.2); Carbon Dioxide 28 mmol/L (22.0-30.0); Creatinine Clearance Estimated 100 mL/min (50-200); Estimated Glomerular Filt Rate 87 ml/min (>60); GFR (African American) 105 ML/MIN (>60); Glucose 119 mg/dl (74-100); Total Protein,Serum 5.8 g/dl (6.3-8.2)
[2023-10-29 06:54] LABS: Basophils % 0.5 % (0.1-2.0); Eosinophils # 0.1 K/mm3 (0.0-0.4); Eosinophils % 1.8 % (0.1-12.0); Hematocrit 33.5 % (37.0-47.0); Hemoglobin 10.8 g/dL (12.2-16.2); Lymphocytes # 1.5 K/mm3 (0.7-4.5); Lymphocytes % 56.6 % (10-50); Mean Corpuscular HGB Conc 32.1 g/dL (31.8-35.4); Mean Corpuscular Hemoglobin 27.1 pg (27.0-31.2); Mean Corpuscular Volume 84.2 fl (81-99); Monocytes # 0.2 K/mm3 (0.1-1.0); Monocytes % 8.7 % (1.7-9.3); Neutrophils # 0.9 K/mm3 (1.8-7.8); Neutrophils % 32.5 % (37.0-80.0); Platelet Count 176 K/mm3 (142-424); Red Blood Count 3.98 M/mm3 (4.20-5.40); White Blood Count 2.7 K/mm3 (4.8-10.8)
[2023-10-29 06:57] LABS: MANUAL DIFFERENTIAL MANUAL DIFFERENTIAL (MANUAL DIFF)
[2023-10-29 08:00] VITALS: BP 136/79; PULSE 80; RESP 16; TEMP 36.6; O2SAT 95
[2023-10-29 08:09] LABS: Magnesium 1.7 mg/dl (1.6-2.3)
[2023-10-29] MEDS: ENOXAPARIN 40MG/0.4ML SYRINGE 40 MG SQ (08:48)
[2023-10-29] MEDS: PANTOPRAZOLE 40MG VIAL 40 MG IV (08:48)
[2023-10-29] MEDS: INSULIN GLARGINE 100 UNITS/ML 3ML FLEXPEN 25 UNIT SQ (08:49)
[2023-10-29 09:14] LABS: Eosinophils % 1 % (0-3); Lymphocytes % 67 % (10-50); Monocytes % 8 % (2-9); Neutrophils % 24 % (42-76); Platelet Estimate Normal; RBC Morphology Normal; Total Cells Counted 100
[2023-10-29 09:43] LABS: POC Glucose,Bedside 154 (70-110)
--- NOTE | 2023-10-29 10:30 | FL_ITS ---
FINAL REPORT CLINICAL HISTORY: failed CSE mGy 20.74 fluoro time 3:40 FINDINGS: MODIFIED BARIUM SWALLOW History: Dysphagia FINDINGS: Fluoroscopy was provided for the speech pathologist to evaluate the swallowing mechanism. The patient was given several different consistencies of barium while the swallow was visualized fluoroscopically. The report of the speech pathologist should be consulted prior to making dietary decisions. Fluoroscopy time: 3 minutes 40 seconds Radiation exposure in Reference air Kerma: 20.74 mGy IMPRESSION: Modified barium swallow under fluoroscopic guidance. Please see the report of the speech pathologist for Dietary recommendations. Films reviewed , interpreted and dictated by Dr. Gee Transcribed by Rosas Townsend PA-C. Reviewed, Interpreted and Dictated by Shakir Gee III, MD Transcribed by YOLIE Black Authenticated and [facility]
[2023-10-29 11:18] LABS: POC Glucose,Bedside 171 (70-110)
[2023-10-29] MEDS: LEVOFLOXACIN/D5W 750 MG/150 ML 750 MG/150 ML PIGGYBACK 100 MG IV (11:18)
[2023-10-29] MEDS: humaLOG 100 UNITS/ML 10ML VIAL (SSI) SQ (11:18)
[2023-10-29] MEDS: BARIUM SULFATE(LIQUID E-Z-PAQUE);355ML BOTTLE 355 ML PO (11:57)
[2023-10-29] MEDS: POTASSIUM CHLORIDE 20MEQ TAB 40 MEQ PO (12:06)
--- NOTE | 2023-10-29 14:14 | EXP.DC.SUM ---
General Admission date:: 10/25/23 Discharge date: 10/29/23 HPI HPI HPI: Patient is not a reliable historian., She says that all of her medicines were stopped by her primary care doctor., Notes indicated that he stopped all controlled substances due to her abuse and use have been feta means, after talking with the ER physician do agree that this lady is quite ill with her blood sugars being over 800 past history of hemoglobin A1c greater than 15. After interviewing the patient she appears to have quite a self-care deficit. Do not believe she is able to manage her medications at this point in time. I agree with the ER physician that we need to admit her try to get her blood sugar under control evaluate whether she has sepsis/pneumonia. Will need OT physical therapy case management evaluation for the patient's safety and future needs. Hospital Course Hospital Course Hospital Course: Ms. Valdovinos is a 57-year-old female who presented with sepsis criteria. Found to be tachycardic, febrile, neutropenia. Initiated on broad-spectrum antibiotics. Case discussed with ER physician, request admission for continued treatment of hyperglycemia, sepsis, clinical instability. Medicine agreed to admit. Patient showed gradual improvement of her sepsis. Blood cultures returned positive for Klebsiella along with her urine. Transitioned to oral antibiotics to complete course. Evaluated by therapy due to debility and choking. Patient stable to discharge home with therapy. Strongly recommended diet modifications. Concern for patient's compliance when she gets home. She threatened to leave AMA at 1 point during admission. Ended up staying when she could not get a hold of a ride. Clinically patient showing improvement. Recommend close follow-up with primary care for further management as an outpatient. Problems addressed as follows: Severe sepsis Klebsiella bacteremia and urinary tract infection -Presented with severe sepsis. Initiated on empiric antibiotics with vancomycin and Zosyn. Blood cultures returned positive for Klebsiella in less than 24 hours. Urine also returned positive after blood cultures. Sensitivity profile showed sensitivity to Levaquin. Transitioned to Levaquin for ease of oral dosing to complete 10-day course due to sepsis from urinary source of bacteremia. White count remain low, 2.7 on day of discharge. Peripheral smear obtained. Reviewed with no blasts or concern for cancer. Likely reactive due to her sepsis. Platelets also low at 139. No active signs of bleeding during admission. Patient's condition improved. Afebrile for over 48 hours prior to discharge home. Stable on room air. Tolerating p.o. intake. Denies any urinary symptoms. Complete antibiotics as prescribed. Hyperglycemia/HHS Diabetes -Found to be hyperglycemic with A1c greater than 15 on admission. Chart review shows A1c consistently uncontrolled and in the double digits for quite some time (years). Initiated on basal insulin. Increased glargine to 30 units daily. Recommend close follow-up with primary care to make further adjustment. Patient educated on use of insulin pen. Nutrition consulted to educate on dietary adjustments for her diabetes. -Needs repeat A1c in 3 months Dysphagia: Choking with liquids and mouth care, speech consulted. Barium swallow performed, patient having aspiration. Based on modified barium swallow findings, recommend mechanical soft and honey thick liquid consistency. Patient appears to have severe base of tongue retraction impairment and moderate impairment of epiglottic coverage and Hyo laryngeal excursion and elevation. High risk for aspiration. Patient adamant about eating at this time. Encouraged diet modifications to decrease risk for pneumonia. Counseled on risks of diet without modifications and need for exercises and modifications of her diet. Total time spent on discharge 42 minutes in counseling, documentation, chart review, and direct care with patient. Patient provided with rolling walker at discharge. Recommended home health however due to insurance/Medicaid, no provider available at this time. Order sent for outpatient PT and speech therapy. Encouraged to keep her appointments and follow-up.. Exam Data for Last 24 hours Vital signs and Labs for Last 24 Hours: Temp Pulse Resp BP Pulse Ox O2 Del Method 98 F 80 17 148/78 H 94 L Room Air 10/28/23 12:00 10/28/23 12:00 10/28/23 12:00 10/28/23 12:00 10/28/23 12:00 10/28/23 13:00 Laboratory Results - last 24 hr 10/27/23 16:56: POC Glucose 215 H 10/27/23 21:15: POC Glucose 228 H 10/28/23 05:33: POC Glucose 260 H 10/28/23 06:36: WBC 2.5 L, RBC 3.76 L, Hgb 10.4 L, Hct 32.6 L, MCV 86.7, MCH 27.8, MCHC 32.1, RDW 15.3, Plt Count 139 L, MPV 8.7, Neut % (Auto) 25.0 L, Lymph % (Auto) 64.4 H, [place] % (Auto) 8.1, Eos % (Auto) 1.8, Baso % (Auto) 0.6, Neut # (Auto) 0.6 L*, Lymph # (Auto) 1.6, [place] # (Auto) 0.2, Eos # (Auto) 0.1, Baso # (Auto) 0.0, Total Counted 100, Neutrophils % (Manual) 14 L, Band Neutrophils % 2.0, Lymphocytes % (Manual) 71 H, Atypical Lymphs % 4.0, Monocytes % (Manual) 8, Eosinophils % (Manual) 1, Platelet Estimate Slight decrease, Hypochromasia 2+, Anisocytosis 1+, Sodium 138, Potassium 3.5, Chloride 109 H, Carbon Dioxide 27, Anion Gap 5.5, BUN 8, Creatinine 0.80, Estimated Creat Clear 92, Estimated GFR 74, Est GFR ( Amer) 90, Glucose 205 H, Calcium 7.5 L, Magnesium 1.9 D, Total Bilirubin 0.3, AST 19, ALT 12, Alkaline Phosphatase 93, Total Protein 5.6 L, Albumin 2.6 L, Globulin 3.0, Albumin/Globulin Ratio 0.9 L 10/28/23 10:51: POC Glucose 233 H I & O for Last 24 hours: Intake & Output 10/25/23 10/26/23 10/27/23 10/28/23 23:59 23:59 23:59 23:59 Intake Total 1850 / 1850 2440 / 2479 2339 / 2439 160 / 160 Output Total 0 / 0 1350 / 1350 0 / 0 Balance 1850 / 1850 2440 / 2479 989 / 1089 160 / 160 Weight 68.039 kg 73.663 kg 76.34 kg 73 kg Microbiology Reports for the Last 24 Hours: Microbiology 10/25/23 16:40 Blood Blood Culture - Final Klebsiella pneumoniae 10/25/23 16:40 Blood Blood Culture - Final Klebsiella pneumoniae 10/25/23 18:03 Urine,Catheterized Urine Culture - Final Klebsiella pneumoniae Constitutional Constitutional: no acute distress, chronically ill appearing and cooperative *Routine HEENT Exam Head: Present normocephalic Eye: Present EOMI and PERRL ENT: Present mucous membranes moist Comments: edentulous *Routine Neck Exam Neck: Present supple; Absent lymphadenopathy *Routine Respiratory Exam Respiratory: Present CTA bilaterally; Absent rhonchi, wheezes or crackles *Routine Cardiovascular Exam Cardiovascular: Present RRR *Routine Abdominal Exam Abdominal: Present soft and normoactive bowel sounds; Absent tenderness *Routine Rectal Exam Patient deferred: visual exam *Routine Exam Patient deferred: external exam *Routine Extremities Exam Extremities: Absent cyanosis, clubbing or edema *Routine Skin Exam Skin: Present warm; Absent rash *Routine Neurological Exam Neurological: Present alert, oriented X3 and moving all extremities; Absent altered mental status Routine Psychiatric Exam Psychiatric: Present depressed Results Data Completed and Pending Labs on day of discharge: Labs from last 24 hours 10/28/23 10/28/23 10/28/23 10:51 06:36 05:33 WBC 2.5 L RBC 3.76 L Hgb 10.4 L Hct 32.6 L MCV 86.7 MCH 27.8 MCHC 32.1 RDW 15.3 Plt Count 139 L MPV 8.7 Neut % (Auto) 25.0 L Lymph % (Auto) 64.4 H [place] % (Auto) 8.1 Eos % (Auto) 1.8 Baso % (Auto) 0.6 Neut # (Auto) 0.6 L* Lymph # (Auto) 1.6 [place] # (Auto) 0.2 Eos # (Auto) 0.1 Baso # (Auto) 0.0 Total Counted 100 Neutrophils % (Manual) 14 L Band Neutrophils % 2.0 Lymphocytes % (Manual) 71 H Atypical Lymphs % 4.0 Monocytes % (Manual) 8 Eosinophils % (Manual) 1 Platelet Estimate Slight decrease Hypochromasia 2+ Anisocytosis 1+ Sodium 138 Potassium 3.5 Chloride 109 H Carbon Dioxide 27 Anion Gap 5.5 BUN 8 Creatinine 0.80 Estimated Creat Clear 92 Estimated GFR 74 Est GFR ( Amer) 90 Glucose 205 H POC Glucose 233 H 260 H Calcium 7.5 L Magnesium 1.9 D Total Bilirubin 0.3 AST 19 ALT 12 Alkaline Phosphatase 93 Total Protein 5.6 L Albumin 2.6 L Globulin 3.0 Albumin/Globulin Ratio 0.9 L 10/27/23 10/27/23 21:15 16:56 WBC RBC Hgb Hct MCV MCH MCHC RDW Plt Count MPV Neut % (Auto) Lymph % (Auto) [place] % (Auto) Eos % (Auto) Baso % (Auto) Neut # (Auto) Lymph # (Auto) [place] # (Auto) Eos # (Auto) Baso # (Auto) Total Counted Neutrophils % (Manual) Band Neutrophils % Lymphocytes % (Manual) Atypical Lymphs % Monocytes % (Manual) Eosinophils % (Manual) Platelet Estimate Hypochromasia Anisocytosis Sodium Potassium Chloride Carbon Dioxide Anion Gap BUN Creatinine Estimated Creat Clear Estimated GFR Est GFR ( Amer) Glucose POC Glucose 228 H 215 H Calcium Magnesium Total Bilirubin AST ALT Alkaline Phosphatase Total Protein Albumin Globulin Albumin/Globulin Ratio DS: Diagnosis Discharge Diagnosis (1) Severe sepsis: Status: Resolved Code(s): A41.9 - Sepsis, unspecified organism; R65.20 - Severe sepsis without septic shock (2) Bacteremia due to Klebsiella pneumoniae: Status: Acute Code(s): R78.81 - Bacteremia; B96.1 - Klebsiella pneumoniae [K. pneumoniae] as the cause of diseases classified elsewhere (3) Hyperglycemia: Status: Acute Code(s): R73.9 - Hyperglycemia, unspecified (4) Hyperosmolar hyperglycemic state (HHS): Status: Acute Code(s): E11.00 - Type 2 diabetes mellitus with hyperosmolarity without nonketotic hyperglycemic-hyperosmolar coma (NKHHC) (5) Tobacco use: Status: Acute Code(s): Z72.0 - Tobacco use (6) HCV (hepatitis C virus): Status: Acute Code(s): B19.20 - Unspecified viral hepatitis C without hepatic coma Qualifiers: Hepatic coma status: without hepatic coma Viral hepatitis chronicity: chronic Qualified Code(s): B18.2 - Chronic viral hepatitis C (7) HTN (hypertension): Status: Acute Code(s): I10 - Essential (primary) hypertension Qualifiers: Hypertension type: primary hypertension Qualified Code(s): I10 - Essential (primary) hypertension (8) Hyperlipidemia: Status: Acute Code(s): E78.5 - Hyperlipidemia, unspecified Qualifiers: Hyperlipidemia type: mixed hyperlipidemia Qualified Code(s): E78.2 - Mixed hyperlipidemia (9) Dysphagia: Status: Acute Code(s): R13.10 - Dysphagia, unspecified Qualifiers: Dysphagia type: pharyngeal phase Qualified Code(s): R13.13 - Dysphagia, pharyngeal phase (10) Depression: Status: Acute Code(s): F32.A - Depression, unspecified (11) Obesity: Status: Acute Code(s): E66.9 - Obesity, unspecified (12) Cirrhosis of liver: Status: Acute Code(s): K74.60 - Unspecified cirrhosis of liver Qualifiers: Ascites presence: without ascites Hepatic cirrhosis type: unspecified hepatic cirrhosis Qualified Code(s): K74.60 - Unspecified cirrhosis of liver Problem details: This was all diagnosed by CT scan. Will get an MRI thin slice of the abdomen with specific focus on the liver and biliary system. Again I think this is all secondary to her underlying hepatitis above but she needs a full workup. Will send her to GI for evaluation. Meds Home Medications and Allergies Home Medications ?Medication ?Instructions ?Recorded ?Confirmed ?Type insulin glargine 100 unit/mL (3 30 unit (0.3 mL) SQ DAILY 30 days 10/28/23 Rx mL) subcutaneous pen (Lantus #9 mL Solostar U-100 Insulin) insulin lispro 100 unit/mL 10 unit (0.1 mL) SQ AC 30 days #9 10/28/23 Rx subcutaneous pen mL levofloxacin 750 mg tablet 750 mg PO Q24H 7 days #7 tabs 10/28/23 Rx pen needle, diabetic 31 gauge x #100 ea 10/28/23 Rx 1/ New Prescriptions to Start Prescriptions: insulin glargine [Lantus Solostar U-100 Insulin] Kd Bryan insulin lispro Kd Bryan levofloxacin Kd Bryan, diabetic Kd Bryan Allergies Allergy/AdvReac Type Severity Reaction Status Date / Time No Known Allergies Allergy Verified 08/29/23 11:38 Discharge Plan Disposition Patient Disposition: Home, Self-Care Condition: Good Discharge Order Discharge Orders: Discharge Order (Routine); Ordered 10/29/23 Ordered By: Kd Bryan Follow up Plan Follow up with: Payam Fairchild DO [Primary Care Provider] - 11/04/23 2:15 pm Prescriptions/Medication Reconciliation: New levofloxacin 750 mg tablet 750 mg PO Q24H 7 Days Qty: 7 0RF insulin glargine [Lantus Solostar U-100 Insulin] 100 unit/mL (3 mL) Insulin Pen 30 unit SQ DAILY 30 Days Qty: 9 0RF insulin lispro 100 unit/mL insulin pen 10 unit SQ AC 30 Days Qty: 9 0RF (DME) pen needle, diabetic 31 gauge x 1/4 needle See Rx Instructions .ROUTE .MEDSULY Qty: 100 0RF Rx Instructions: As directed Problem Reconciliation Problems Reviewed?: Yes Patient Discharge Instructions ACTIVITY: Continue current activity DIET: diabetic diet Patient Instructions: Low Glycemic Index Diets (Alternative Therapy), Low-Carbohydrate Diet (Alternative Therapy), Carbohydrate-Counting Diet, DI for Pneumonia -- Adult, DI for Hyperglycemia -- Adult, DI for Sepsis -- Adult, DI for Bacteremia-Adult Print Language: Turkmen Providers Primary Care Provider: Payam Fairchild Admit Provider: Kd Bryan Attending Provider: Kd Bryan
--- NOTE | 2023-10-29 16:30 | HMH.SLMBS2 ---
Speech & Language Evaluation Speech/Language Mod Barium Swallow Start: 10/29/23 10:30 Freq: ONCE Status: Complete Protocol: Document 10/29/23 13:16 SERA (Rec: 10/29/23 13:49 [facility] [id number]) Co-signed By ST Suzanne Garnica Information General Current Food Consistancy NPO Dentition Edentulous Oxygen Status Room Air Patient Orientation Person Ability to Follow Directions Good Communication Ability No Impairment MBS Recommendations Diet Dietary Recommendations Mechanical Soft,Honey Liquids Treatment/Strategies Treatment Recommendation Base of Tongue Exercises, Compens. Strategy Educat. Strategy/Precaution Recommend Sitting Upright (90 deg),Chin Tuck,Double Swallow, Supraglottic Swallow,No Straw, Small Bites and Sips,Alternate Liquids/Solids Mod Barium Swallow Impressions Summary and Impressions Oral Phase Impression Mild Impairment Oral Phase Summary Mild impairment of the oral phase of swallow. Pt exhibited a mild impairment of mastication and manipulation of bolus '2 dentition on mechanical soft trials. Moderate impairment of lingual movement on all trials. Moderate amount of oral residue present on pudding, puree, and mechanical soft trials, which was cleared by multiple swallows and lingual sweep. Pharyngeal Phase Impression Moderate Impairment Pharyngeal Phase Summary Moderate impairment of pharyngeal phase of swallow. Silent aspiration observed on nectar thick liquids and pudding x2. Moderate lingual propulsion spill and swallow response delay on nectar thick liquid trials. Severe impairment of base of tongue retraction. Moderate impairment of epiglottic coverage and hyolaryngeal excursion and elevation on all consistencies trialed. Moderate amount of diffuse residue in the oropharynx on all trials, which were cleared with multiple swallows and supraglottic swallow. Chin tuck effective at reducing residue and decreasing lingual propulsion spills on all trials. Mild pyriform sinus retention on all trials. Speech/Language MBS Assessment/Goals/Plan Assessment Date of Evaluation: 10/29/23 Evaluation Type Initial Certification Assessment/Problems Choking on water per MD order Does Patient Qualify for Service Yes Qualify/Failure Comment Based on clinical observations made on the instrumental assessment and pt/nursing interview, pt would benefit from further skilled speech therapy services in order to provide rehabilitative exercises and address oropharyngeal dysphagia. Recommendations PHYSICIAN CERTIFICATION: The specified therapy services are required, authorized, and reviewed every 30 days. Pt will be seen # times/week 1 for # weeks 4 Diet Recommendations Mechanical Soft Liquid Type Recommendations Honey Consistency SL Swallow Guidelines High aspiration risk,Standard Aspiration Prec.,Crush meds as allowed*,Eat at slow rate, Oral Care Education Crush Meds Crush all meds Dysphagia Swallow Precautions/Strategies Sitting Upright (90 deg),Chin Tuck,Double Swallow, Supraglottic Swallow,No Straw, Small Bites and Sips,Alternate Liquids/Solids Plan Anticipate reaching STG in # weeks 2 Anticipate reaching LTG in # weeks 4 Pt/Guardian verbally ack understanding Yes of dx/prognosis/goals G -code Required No STG-Other Comment/Non-Specific 1. Nicole will perform x10 trials of Geni Maneuver exercise. 2. Nicole will perform x10 trials of supraglottic swallow exercise. 3. Nicole will perform x10 trials of falsetto E exercises . 4. Nicole will perform x10 trials of hawK exercises. Detention Goals Pt will be able to eat foods w/more Yes normal consistency Education Instructions provided DAIRY BACTERIOLOGIST discussed diet recommendations, aspiration precautions/compensatory strategies, and POC with patient and nursing who expressed understanding. Pt/Caregiver able to recall information Able to recall/restate Reinforcement needed No Mod Barium Swallow Setup Exam Setup Radiologist Shakir Gee Level of Consciousness Awake,Alert,Appropriate, Follows Commands Mod Barium Swallow-Lat View Textures Lateral View Food Presentation [place] Liquid via Cup,Honey Liquid via Cup,Pureed Food- Thick,Mech. Soft Food- Chopped ,Mech. Soft Food- Regular, Barium Tablet,Pudding Comment All bolus' were presented x2 to assess consistency and fatigue. Oral Phase Labial Closure No Impairment (WFL) Bolus Formation Pooling L/R No Impairment (WFL) Bolus Formation under Tongue No Impairment (WFL) Bolus Formation Scattered Loss No Impairment (WFL) Mastication Rotary Chew Mild Impairment Mastication Munching Mild Impairment Mastication Lateralization Mild Impairment Lingual Movement Moderate Impairment Residue Clearing Moderate Impairment Pharyngeal Phase A/P Lingual Propulsion Spills Moderate Impairment Swallow Response Delay Moderate Impairment Base of Tongue Severe Impairment Epiglottic Coverage Moderate Impairment Laryngeal Elevation Moderate Impairment Vallecular Retention Clearing Moderate Impairment Pharyn. Wall Residue Clearing Moderate Impairment Piriform Sinus Retention Mild Impairment Aspiration? Yes Degree of Aspiration Medium When aspirated During the swallow Consistencies Aspirated [place] thick and pudding Silent aspiration? Inconsistent Reason for aspiration Severe base of tongue retraction impairment and moderate impairment of epiglottic coverage and hyolaryngeal excursion and elevation Mod Barium Swallow-AP View Performed Mod Barium Swallow A/P View Test Not Applicable/Performed PHYSICIAN CERTIFICATION: I certify the specified therapy services for Nicole Valdovinos are required, authorized, and reviewed every 30 days.
[2023-10-30 06:53] LABS: Peripheral Smear Review Scanned Result
--- NOTE | 2023-10-31 14:50 | CARE MANAGER ---
Unable to reach patient via phone to discuss recent discharge. VM option not available. Call attempted X 2.
== END 2023-10-29 15:50 | disposition home or self-care (01) | DRG 871 ==
LOC: ER 20:19 → 2ND 20:43
PROVIDERS: Nurse Practitioner Family; Admitting Provider Internal Medicine Adolescent Medicine; Emergency Provider Emergency Medicine; PCP Internal Medicine; Visit Provider Internal Medicine Adolescent Medicine
DX: A41.59 Other Gram-negative sepsis (principal); E11.00 Type 2 diabetes mellitus with hyperosmolarity without nonketotic hyperglycemic-hyperosmolar coma (NKHHC); R18.8 Other ascites; R65.20 Severe sepsis without septic shock; R13.10 Dysphagia, unspecified; I10 Essential (primary) hypertension; E78.5 Hyperlipidemia, unspecified; J44.9 Chronic obstructive pulmonary disease, unspecified; F17.200 Nicotine dependence, unspecified, uncomplicated; E66.9 Obesity, unspecified; K74.60 Unspecified cirrhosis of liver; Z68.29 Body mass index [BMI] 29.0-29.9, adult; G62.9 Polyneuropathy, unspecified
CPT/HCPCS: 36415; 70371; 70450; 71275; 72125; 72128; 72131; 74174; 76705; 80050; 80053; 80307; 80320; 81001; 82009; 82550; 82803; 82962; 83036; 83605; 83690; 83735; 84100; 84436; 84443; 84484; 85007; 85025; 85027; 85610; 85651; 85730; 86140; 87040; 87077; 87086; 87088; 87186; 87636; 92610; 92611; 93005; 97110; 97163; 97165; 97530; 99285; G0480; J1650; J1956; J2543; J3475; J7120; Q9967

== ENCOUNTER 2023-12-12 17:13 | Observation (INO) | payer BC, SELFPAY ==
[2023-12-12] VITALS (21 sets, daily range): BP systolic 165–217; BP diastolic 75–114; PULSE 70–97; RESP 16–18; TEMP 36.8–36.9; O2SAT 93–98; BMI 27.4
--- NOTE | 2023-12-12 17:35 | PC.NURSE ---
DR NGUYEN AT BEDSIDE
[2023-12-12 17:36] LABS: Albumin Level 3.2 g/dl (3.5-5.0); Chloride 96 mmol/L (98-107)
--- NOTE | 2023-12-12 17:36 | XR_ITS ---
PROCEDURE INFORMATION: Exam: XR Chest Exam date and time: 12/12/2023 7:09 PM Age: 58 years old Clinical indication: Other: Hyperglycemia TECHNIQUE: Imaging protocol: Radiologic exam of the chest. Views: 1 view. Total images: 1 COMPARISON: CT ANGIO CHEST PE PROTOCOL 10/25/2023 5:44 PM FINDINGS: Lungs: Unremarkable. No consolidation. No pulmonary vascular congestion or edema. Pleural spaces: Unremarkable. No pleural effusion. No pneumothorax. Heart/Mediastinum: Unremarkable. No cardiomegaly. No mediastinal widening or hilar enlargement. Bones/joints: Mild osteopenia. Partially visualized mild to moderate degenerative changes thoracic spine. Other findings: Lordotic positioning. IMPRESSION: No radiographically acute cardiopulmonary process.
[2023-12-12 17:37] LABS: Basophils % 0.5 % (0.1-2.0); Eosinophils # 0.1 K/mm3 (0.0-0.4); Hematocrit 37.5 % (37.0-47.0); Hemoglobin 12.1 g/dL (12.2-16.2); Lymphocytes % 27.7 % (10-50); Mean Corpuscular HGB Conc 32.4 g/dL (31.8-35.4); Mean Corpuscular Hemoglobin 28.2 pg (27.0-31.2); Mean Platelet Volume 8.5 fl (7.4-10.4); Monocytes # 0.3 K/mm3 (0.1-1.0); Monocytes % 4.4 % (1.7-9.3); Neutrophils # 4.9 K/mm3 (1.8-7.8); Neutrophils % 66.5 % (37.0-80.0); Platelet Count 193 K/mm3 (142-424); Potassium 4.4 mmoL/L (3.5-5.1); Red Blood Count 4.31 M/mm3 (4.20-5.40); Red Cell Distribution Width 14.4 % (11.5-17.5); Sodium 127 mmol/L (136-145); White Blood Count 7.4 K/mm3 (4.8-10.8)
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
[2023-12-12 17:38] LABS: VBG Base Excess -0.1 mmol/L (-2.4-2.3); VBG Oxygen Saturation 99.2 % (50-70); VBG PCO2 36.1 mmol/L (35-51); VBG PH 7.44 mmol/L (7.31-7.41); VBG PO2 150.2 mmol/L (28-40); VBG Total CO2 25.1 mmol/L (23-27)
--- NOTE | 2023-12-12 17:38 | PC.NURSE ---
RT aware of VBG
[2023-12-12 17:39] LABS: Alanine Aminotransferase 19 U/L (12-78); Albumin/Globulin Ratio 1.1 (1.1-1.8); Alkaline Phosphatase 153 U/L (38-126); Anion Gap 6.4 mEq/L (5-15); Aspartate Amino Transferase 24 U/L (14-36); Bilirubin,Total 0.3 mg/dl (0.2-1.3); Blood Urea Nitrogen 21 mg/dl (7-17); Carbon Dioxide 29 mmol/L (22.0-30.0); Creatinine Clearance Estimated 84 mL/min (50-200); Estimated Glomerular Filt Rate 74 ml/min (>60); GFR (African American) 90 ML/MIN (>60); Lipase 182 U/L (23-300); Total Protein,Serum 6.2 g/dl (6.3-8.2)
[2023-12-12 17:40] LABS: Calcium 8.4 mg/dl (8.4-10.2); Magnesium 1.8 mg/dl (1.6-2.3); Phosphorous 3.7 mg/dl (2.5-4.5)
[2023-12-12 17:41] LABS: Microscopic, Urine URINE MICROSCOPIC (MICROSCOPIC)
[2023-12-12 17:44] LABS: Activated Partial Thrombo Time 26.3 seconds (22.8-30.6); INR 0.88 (0.9-1.1)
--- NOTE | 2023-12-12 17:44 | XR_ITS ---
PROCEDURE INFORMATION: Exam: XR Pelvis Exam date and time: 12/12/2023 7:09 PM Age: 58 years old Clinical indication: Other: Frequent falls TECHNIQUE: Imaging protocol: Radiologic exam of the pelvis. Views: 1 or 2 view. Total images: 1 COMPARISON: CT ANGIO ABDOMEN PELVIS 10/25/2023 5:44 PM FINDINGS: Bones/joints: Mild osteopenia. Pelvic ring is preserved. No widening of the pubic symphysis or sacroiliac joints. Symmetric mild age-related degenerative changes bilateral hips. No concerning bone lesions. Mild degenerative change lower lumbar spine. Soft tissues: Unremarkable soft tissues. Vasculature: Pelvic phleboliths. IMPRESSION: 1. Negative pelvic radiograph. 2. Mild degenerative changes.
--- NOTE | 2023-12-12 17:44 | CT_ITS ---
PROCEDURE INFORMATION: Exam: CT Cervical Spine Without Contrast Exam date and time: 12/12/2023 7:39 PM Age: 58 years old Clinical indication: Weakness; Additional info: Frequent falls TECHNIQUE: Imaging protocol: Computed tomography of the cervical spine without contrast. Total images: 234 Radiation optimization: All CT scans at this facility use at least one of these dose optimization techniques: automated exposure control; mA and/or kV adjustment per patient size (includes targeted exams where dose is matched to clinical indication); or iterative reconstruction. COMPARISON: CT CERVICAL SPINE WO CON 10/25/2023 5:37 PM FINDINGS: Bones: The C2 through C5 levels are nondiagnostic secondary to extensive motion. Moderate degenerative disc disease C6-C7 as shown previously. Straightened cervical lordosis. cervicooccipital junction is intact. Moderate degenerative arthropathy C1 and C2 articulations. Facet joints appear aligned. Lungs: Lung apices are clear. Soft tissues: Grossly unremarkable. Other findings: Nondiagnostic secondary to motion artifact. Recommend follow-up imaging when clinical condition permits. IMPRESSION: Nondiagnostic secondary to significant motion artifact. Recommend follow-up imaging when clinical condition permits.
--- NOTE | 2023-12-12 17:44 | CT_ITS ---
PROCEDURE INFORMATION: Exam: CT Head Without Contrast Exam date and time: 12/12/2023 7:37 PM Age: 58 years old Clinical indication: Walking, difficulty; Additional info: Frequent falls TECHNIQUE: Imaging protocol: Computed tomography of the head without contrast. Total images: 254 Radiation optimization: All CT scans at this facility use at least one of these dose optimization techniques: automated exposure control; mA and/or kV adjustment per patient size (includes targeted exams where dose is matched to clinical indication); or iterative reconstruction. COMPARISON: CT HEAD/BRAIN WO CON 10/25/2023 5:35 PM FINDINGS: Brain: No acute intracranial hemorrhage, midline shift, or mass. Barone-white interface and basilar cisterns are preserved. Small volume remote encephalomalacia/gliosis in the medial left frontal lobe. Additional remote deep white matter periventricular infarct in the bilateral frontal lobes. Mild white matter heterogeneity compatible with remote small vessel ischemic change. Mild age-related cortical involution/atrophy. Cerebral ventricles: No ventriculomegaly. Paranasal sinuses: Visualized sinuses are unremarkable. No fluid levels. Mastoid air cells: Visualized mastoid air cells are well aerated. Bones: Mild osteopenia. No skull fracture. Soft tissues: Unremarkable. Vasculature: Severe calcifications bilateral intracranial internal carotid arteries. IMPRESSION: 1. No acute intracranial process. 2. Stable chronic intracranial findings. 3. No significant change from October 25, 2023.
--- NOTE | 2023-12-12 17:44 | CT_ITS ---
PROCEDURE INFORMATION: Exam: CT Lumbar Spine Without Contrast Exam date and time: 12/12/2023 7:39 PM Age: 58 years old Clinical indication: Weakness; Additional info: Frequent falls TECHNIQUE: Imaging protocol: Computed tomography of the lumbar spine without contrast. Total images: 760 Radiation optimization: All CT scans at this facility use at least one of these dose optimization techniques: automated exposure control; mA and/or kV adjustment per patient size (includes targeted exams where dose is matched to clinical indication); or iterative reconstruction. COMPARISON: CT LUMBAR SPINE WO CON 10/25/2023 5:41 PM FINDINGS: Bones/joints: Five non rib-bearing lumbar vertebral segments. Mild rotary lumbar dextrocurvature. Partial straightening of lumbar lordosis. Chronic mild anterior wedging L1 vertebral body, unchanged from October 25, 2023. Vertebral body height is otherwise preserved. Stable minor anterolisthesis L4-L5. Mild multilevel degenerative disc disease greatest at L5-S1. Facet joints are appropriately aligned. Moderate degenerate facet joint spondylosis bilaterally at L4-L5 and L5-S1. Posterior elements are intact. Mild degenerative changes bilateral SI joints. No concerning bone lesions. Limited assessment of spinal canal contents secondary to attenuation artifact. Severe acquired spinal canal stenosis L4-L5 secondary to degenerative change and disc bulge. Stomach and bowel: Partially visualized colonic diverticulosis. Vasculature: Atherosclerotic abdominal aorta without aneurysm. Lymph nodes: No retroperitoneal mass or lymphadenopathy. Soft tissues: No paraspinal mass or fluid collection. IMPRESSION: 1. No acute lumbar fracture or traumatic subluxation. 2. Stable mild remote anterior wedging L1 vertebral body. 3. Stable degenerative anterolisthesis L4-L5. 4. Stable severe acquired spinal canal stenosis L4-L5. 5. Overall, no significant change from October 25, 2023.
--- NOTE | 2023-12-12 17:44 | CT_ITS ---
PROCEDURE INFORMATION: Exam: CT Thoracic Spine Without Contrast Exam date and time: 12/12/2023 7:39 PM Age: 58 years old Clinical indication: Weakness; Additional info: Frequent falls TECHNIQUE: Imaging protocol: Computed tomography of the thoracic spine without contrast. Total images: 868 Radiation optimization: All CT scans at this facility use at least one of these dose optimization techniques: automated exposure control; mA and/or kV adjustment per patient size (includes targeted exams where dose is matched to clinical indication); or iterative reconstruction. COMPARISON: CT LUMBAR SPINE WO CON 12/12/2023 7:39 PM FINDINGS: Bones/joints: Straightened thoracic kyphosis. Minor levocurvature at the thoracolumbar junction. Vertebral body height and alignment is preserved. Bones are osteopenic. Cpli-er-bqadaguz multilevel degenerative disc disease with prominent bridging endplate osteophyte formation at multiple consecutive levels. Generalized mild loss of disc space uniformly affecting the thoracic levels. The facet joints are appropriately aligned. No concerning bone lesions. No large disc herniation or critical spinal canal stenosis. Please note, spinal canal contents are limited by attenuation artifacts. Posterior elements are intact. Costovertebral junctions are maintained. Moderate degenerative arthropathy at costovertebral junctions in the lower thoracic levels. Question subacute healing fracture of the posterior left 11th rib at the costovertebral junction with adjacent amorphous callus. Soft tissues: No paraspinal mass, edema, or fluid collection. Unremarkable soft tissues. Lungs: Included lung parenchyma is clear. Coronary arteries: Partially included coronary artery calcifications. IMPRESSION: 1. No acute thoracic fracture or traumatic subluxation. 2. Lyar-xy-hlweisdr multilevel degenerative changes as described. 3. Suspect subacute healing fracture posterior left 11th rib at the costovertebral junction with adjacent callus. 4. Coronary artery calcifications. 5. Visualized lungs are clear.
[2023-12-12 17:50] LABS: Appearance,Urine CLEAR (Clear); Bilirubin,Urine Negative (Negative); Blood, Urine TRACE-I (Negative); Color,Urine YELLOW (Yellow); Glucose,Urine (UA) 3+ (Negative); Ketones,Urine Negative (Negative); Leukocyte Esterase,Urine Negative (Negative); Nitrate,Urine Negative (Negative); PH,Urine 6.5 (5.0-8.5); Protein,Urine 2+ (Negative); Urobilinogen,Urine 0.2 EU/dl (0.2)
[2023-12-12 17:54] LABS: Glucose 637 mg/dl (74-100); Troponin I < 0.01 ng/ml (0.00-0.034)
--- NOTE | 2023-12-12 17:55 | PC.NURSE ---
Louisa in lab called critical glucose of 637. Dr. Boyle aware.
[2023-12-12 17:57] LABS: T4 (Thyroxine) 7.8 ug/dl (5.53-11.0)
--- NOTE | 2023-12-12 18:00 | ECG_ITS ---
APPROVED REPORT Exam: Resting ECG HR:81 bpm ECG Measurements Heart Rate 81 AXES CO 147 P 64 QRSd 75 QRS 57 QT 353 T -1 QTc 390 Conclusion SINUS RHYTHM NONSPECIFIC T-WAVE ABNORMALITY BORDERLINE ECG Electronically signed by : HUNG NGUYEN, 12/12/2023 22:17:59
[2023-12-12] MEDS: humaLOG 100 UNITS/ML 10ML VIAL (SSI) 10 UNIT SQ (18:02)
[2023-12-12 18:10] LABS: Thyroid Stimulating Hormone 1.32 uIU/mL (0.465-4.68)
[2023-12-12 18:11] LABS: Hemoglobin A1C 13.6 % (4.0-6.0)
[2023-12-12 18:13] LABS: Bacteria,Urine 1+ /lpf; RBC,Urine Occasional #/hpf (0-3); WBC,Urine Occasional #/hpf (0-3)
--- NOTE | 2023-12-12 18:24 | PC.NURSE ---
placed purewick on pt
[2023-12-12 18:27] LABS: Acetone, Serum (Rapid) None Detected (None Detect)
[2023-12-12 18:45] LABS: HIV (1&2) Antibody Rapid NONREACTIVE (NONREACTIVE)
--- NOTE | 2023-12-12 21:15 | PC.NURSE ---
called and spoke with house for bed assignment. dx: poorly controlled diabetes , hospitalist.
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
--- NOTE | 2023-12-12 21:22 | PC.NURSE ---
report called to LATRICE Bartholomew
--- NOTE | 2023-12-12 21:23 | PC.NURSE ---
Recieved phone call from Mr. Ruiz whom identified himself as patient's roomate. Confirmed with patient that I could release the information that she was being admitted to the hospital to this person. Patient consented. Updated that patient would be admitted.
--- NOTE | 2023-12-12 22:06 | PC.NURSE ---
pt arrived to floor via stretcher @22:05
[2023-12-12] MEDS: 0.9 % SODIUM CHLORIDE 1000ML 1,000 ML 50 ML IV (22:18)
[2023-12-12 22:51] LABS: Troponin I < 0.01 ng/ml (0.00-0.034)
[2023-12-12 23:03] LABS: POC Glucose,Bedside 237 (70-110)
[2023-12-12] MEDS: humaLOG 100 UNITS/ML 10ML VIAL (SSI) SQ (23:14)
--- NOTE | 2023-12-12 23:19 | PC.NURSE ---
FSBS @ 2300 was 237 - contacted Hospitalist, ADAN once, gave 7 units w/ bedtime snack. Patient states she only is suppose to take insulin at home, however doesn't take it because she doesn't like to be poked. Asked patient if she has trouble accessing meds r/t $ and denies.
[2023-12-13] VITALS: BP 164/89; PULSE 85; RESP 16; TEMP 36.7; O2SAT 96
[2023-12-13 01:40] LABS: Troponin I < 0.01 ng/ml (0.00-0.034)
[2023-12-13 04:00] VITALS: BP 163/91; PULSE 86; RESP 16; TEMP 36.8; O2SAT 97; BMI 27.6
[2023-12-13] MEDS: METFORMIN 500MG TABLET 1000 MG PO (05:52)
[2023-12-13] MEDS: humaLOG 100 UNITS/ML 10ML VIAL (SSI) SQ ×2 (05:52→12:01)
[2023-12-13 06:02] LABS: POC Glucose,Bedside 293 (70-110)
[2023-12-13 07:03] LABS: Basophils % 0.6 % (0.1-2.0); Eosinophils # 0.1 K/mm3 (0.0-0.4); Eosinophils % 1.7 % (0.1-12.0); Hematocrit 36.4 % (37.0-47.0); Hemoglobin 11.8 g/dL (12.2-16.2); Lymphocytes # 1.8 K/mm3 (0.7-4.5); Lymphocytes % 25.8 % (10-50); Mean Corpuscular HGB Conc 32.5 g/dL (31.8-35.4); Mean Corpuscular Hemoglobin 27.8 pg (27.0-31.2); Mean Corpuscular Volume 85.5 fl (81-99); Mean Platelet Volume 8.3 fl (7.4-10.4); Monocytes # 0.3 K/mm3 (0.1-1.0); Monocytes % 4.6 % (1.7-9.3); Neutrophils # 4.8 K/mm3 (1.8-7.8); Neutrophils % 67.3 % (37.0-80.0); Platelet Count 173 K/mm3 (142-424); Red Blood Count 4.25 M/mm3 (4.20-5.40); Red Cell Distribution Width 14.4 % (11.5-17.5); White Blood Count 7.1 K/mm3 (4.8-10.8)
[2023-12-13 07:13] LABS: Alanine Aminotransferase 12 U/L (12-78); Albumin Level 2.8 g/dl (3.5-5.0); Alkaline Phosphatase 110 U/L (38-126); Aspartate Amino Transferase 21 U/L (14-36); Bilirubin,Total 0.3 mg/dl (0.2-1.3); Blood Urea Nitrogen 14 mg/dl (7-17); Calcium 8.6 mg/dl (8.4-10.2); Carbon Dioxide 31 mmol/L (22.0-30.0); Chloride 104 mmol/L (98-107); Creatinine Clearance Estimated 96 mL/min (50-200); Estimated Glomerular Filt Rate 87 ml/min (>60); GFR (African American) 105 ML/MIN (>60); Globulin 2.9 g/dL (1.3-3.2); Glucose 300 mg/dl (74-100); Magnesium 1.6 mg/dl (1.6-2.3); Sodium 133 mmol/L (136-145); Total Protein,Serum 5.7 g/dl (6.3-8.2)
--- NOTE | 2023-12-13 07:55 | HMH.PTEV ---
Physical Therapy Evaluation Rehab PT IP Evaluation Start: 12/12/23 21:15 Freq: ONCE Status: Active Protocol: Document 12/13/23 07:42 MAURO (Rec: 12/13/23 07:55 MAURO [id number]) Subjective/History History History Per H&P: This is a 58-year- old female with PMHx of obesity, multiples co- morbidities, chronic medical noncompliance, insulin- dependent diabetes, hypertension, hyperlipidemia, anxiety, hepatitis C, methamphetamine use, marijuana use, spinal stenosis, peripheral neuropathy, a recent hospitalization with bacteremia due to Klebsiella pneumonia presenting to the emergency department for evaluation with concern for high blood sugar. Patient states she does not take her insulin because she does not want to. She states she does not like sticking herself. She knows she has not been using her insulin for 2 months . She called EMS because she was too weak to get up and walk around, which she attributes to her neuropathy in her legs. She states that she falls all the time but has no known injuries. No head pain, neck pain, back pain, chest pain, abdominal pain, urinary incontinence, fecal incontinence, or other concerns. No numbness and tingling aside from her peripheral neuropathy. She denies any other concerns except that she cannot walk. She states she does not care if she takes her insulin or not if she does not care if she lives or dies since her son last year, but she denies any active SI/HI Subjective Subjective Pt pleasantly agreeable to PT evaluation. Pt reports she lives in a single-story home with 5 [address]. Pt lives with her friend who is around during the day. Pt reports ~4 falls in past month secondary to neuropathy. Pt does not drive. Pt reports she is usually IND with mobility with intermittent use of RW. New diagnosis of cancer in past 12 No months? Rehab PT IP Eval Objective Appearance Patient Behavior Appropriate,Cooperative Patient Orientation Person,Situation Difficulty following instructions none Speech Pattern Clear Ambulation Patient Able to Ambulate Yes Ambulation Observation IP General Gait Pattern Observation Wide Based Gait Ambulation Distance (feet) 10 Ambulation Assistive Device Rolling Walker Ambulation Ability Supervision/Stand by Balance Ability to Arise Able, uses arms to help Sitting Balance Steady, safe Standing Balance Steady, wide stance Transfers Bed Transfer Ability Supervision/Stand by Sit to Stand Bed Transfer Ability Supervision/Stand by Rehab PT IP prob,goals,plan Problems Date of Evaluation: 12/13/23 PT IP Problems Gait Rehab Potential Rehab Potential Good Equipment Needs Assistive Devices Rolling / Wheeled Walker Plan PT Intervention Plan Gait,Balance,Safety Other Intervention Plan 1-2 times PT Plan Frequency Daily Duration LOS Discharge Goals Bed Transfer Ability Independent Sit to Stand Chair Transfer Ability Independent Ambulation Assistive Device Rolling Walker Ambulation Distance (feet) 30 Discharge Plan PT Discharge Plan Initial physical therapy evaluation performed. Patient presents below baseline at this time in functional mobility, transfers, gait, and strength. Pt demo'd ambulation in room with one bout of impaired safety awareness by leaving RW. Pt limited by dizziness requiring to return to sitting. Pt would benefit from skilled PT while at [facility] to prevent further functional decline and maximize safety with mobility . Pt safe to d/c home when deemed medically necessary d/t current level of mobility, home set-up, and family support. PT recommending home health PT services to address deficits. Eval Complexity Eval Charge Codes 85580 - Moderate Complexity PHYSICIAN CERTIFICATION: I certify the specified therapy services for Nicole Valdovinos are required, authorized, and reviewed every 30 days.
[2023-12-13 08:00] VITALS: BP 171/81; PULSE 96; RESP 15; TEMP 37.3; O2SAT 95
[2023-12-13 08:13] LABS: Anion Gap 1.6 mEq/L (5-15); Potassium 3.6 mmoL/L (3.5-5.1)
[2023-12-13] MEDS: CITALOPRAM 40MG TABLET 40 MG PO (08:44)
[2023-12-13] MEDS: ENOXAPARIN 40MG/0.4ML SYRINGE 40 MG SQ (08:44)
[2023-12-13] MEDS: GABAPENTIN 800MG TABLET 800 MG PO (08:45)
[2023-12-13] MEDS: IRBESARTAN 75MG TABLET 37.5 MG PO (08:45)
--- NOTE | 2023-12-13 09:16 | DIET.NUTRFU ---
reviewed swallow study from 10/28- recommended MSOFT chopped with honey thick liquids- updated diet order
--- NOTE | 2023-12-13 09:42 | HMH.OTEV ---
OT Inpatient Evaluation Rehab OT IP Evaluation Start: 12/12/23 21:15 Freq: ONCE Status: Active Protocol: Document 12/13/23 09:36 VEGA (Rec: 12/13/23 09:42 [facility] [id number]) Rehab OT IP Assessment Subjective History Pt oriented x 3 on arrival. Pt agreeable to engage in therapy evaluation. Pt admitted for uncontrolled diabetes on 12/12/23. Per H&P: This is a 58-year- old female with PMHx of obesity, multiples co- morbidities, chronic medical noncompliance, insulin- dependent diabetes, hypertension, hyperlipidemia, anxiety, hepatitis C, methamphetamine use, marijuana use, spinal stenosis, peripheral neuropathy, a recent hospitalization with bacteremia due to Klebsiella pneumonia presenting to the emergency department for evaluation with concern for high blood sugar. Patient states she does not take her insulin because she does not want to. She states she does not like sticking herself. She knows she has not been using her insulin for 2 months . She called EMS because she was too weak to get up and walk around, which she attributes to her neuropathy in her legs. She states that she falls all the time but has no known injuries. No head pain, neck pain, back pain, chest pain, abdominal pain, urinary incontinence, fecal incontinence, or other concerns. No numbness and tingling aside from her peripheral neuropathy. She denies any other concerns except that she cannot walk. She states she does not care if she takes her insulin or not if she does not care if she lives or dies since her son last year, but she denies any active SI/HI Subjective Pt pleasantly agreeable to OT evaluation. Pt reports she lives in a single-story home with 5 [address]. Pt lives with her friend who is around during the day. Pt reports ~4 falls in past month secondary to neuropathy. Pt does not drive. Pt reports she is usually IND with mobility with intermittent use of RW. Pt also claims to be independent with all ADLs and IADLs prior to admission. Pt no longer drove. Objective Patient Orientation Person,Place,Birthday Right Upper Extremity Gross ROM WFL Left Upper Extremity Gross ROM WFL Bed Mobility bed mobility-scooting,bed mobility - supine/sit Assist Level Minimal x 1 (25% assist) Transfer Training Sit/Stand Transfer Assist Level Minimal x 1 (25% assist) Rehab OT IP prob,goals,plan Problems Date of Evaluation: 12/13/23 OT IP Problems Bed Mobility,Transfers,Balance ,Self care,Safety Rehab Potential Rehab Potential Good Equipment Needs Assistive Devices Rolling / Wheeled Walker Plan OT intervention Plan Bed Mobility,Transfers,Balance ,Self care,Safety,Therapeutic Exercise OT Plan Frequency Daily Duration LOS Discharge Goals Bed Mobility Ability Standby Assistance Sit to Stand Chair Transfer Ability Supervision/Stand by Chair Transfer Ability Contact Guard/Hand Hold Chair Transfer Technique Sit to/from Ambulatory Chair Transfer Assistive Devices Rolling Walker Feeding Ability Assist with Tray Set Up Lower Body Dressing Ability Contact Guard Upper Body Dressing Ability Standby Assistance Bathing Ability Contact Guard Performing Toilet Hygiene Ability Contact Guard Overall Commode/Toilet Transfer Ability Contact Guard Commode/Toilet Transfer Technique Sit to/from Ambulatory Commode/Toilet Transfer Assistive Grab Bars Devices Oral Care Assist Standby Assistance Decrease in Endurance No Discharge Plan OT Discharge Plan Pt will continue to be seen for OT services while at [facility]. Pt can return home with her friend once she is medically stable. Therapist does recommend OT evaluation upon returning home for continued skilled therapy services. Skilled therapy services are important in order for patient to improve strength, safety, endurance, ADL independence, and functional transfers to reach PLOF and PLOI. Eval Complexity Eval Charge Codes 82213 - Moderate Complexity PHYSICIAN CERTIFICATION: I certify the specified therapy services for Nicole Valdovinos are required, authorized, and reviewed every 30 days.
[2023-12-13] MEDS: INSULIN GLARGINE 100 UNITS/ML 10ML VIAL 15 UNIT SQ (09:59)
--- NOTE | 2023-12-13 11:53 | SW/DCPLANNER ---
I spoke w/ this patient regarding plans once medically stable for discharge. PT/OT evaluated patient and recommended home w/ home health services. Due to insurance patient is not able to receive home health services. I did offer patient outpatient therapy services but patient has refused at this time. I provided patient w/ [facility] resource list which does include [employer].
[2023-12-13 12:00] VITALS: BP 184/92; PULSE 91; RESP 18; TEMP 37.3; O2SAT 94
[2023-12-13 12:18] LABS: POC Glucose,Bedside 285 (70-110)
[2023-12-13 14:08] VITALS: BMI 27.6
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
== END 2023-12-13 16:07 | disposition home or self-care (01) ==
LOC: ER 21:14 → 2ND 21:24
PROVIDERS: Nurse Practitioner Family; Admitting Provider Student in an Organized Health Care Education/Training Program; Emergency Provider Emergency Medicine; Visit Provider Student in an Organized Health Care Education/Training Program
DX: E11.65 Type 2 diabetes mellitus with hyperglycemia (principal); E11.21 Type 2 diabetes mellitus with diabetic nephropathy; Z79.4 Long term (current) use of insulin; E66.9 Obesity, unspecified; Z68.27 Body mass index [BMI] 27.0-27.9, adult; Z91.198 Patient's noncompliance with other medical treatment and regimen for other reason; I10 Essential (primary) hypertension; E78.5 Hyperlipidemia, unspecified; F17.210 Nicotine dependence, cigarettes, uncomplicated; Z91.81 History of falling; F12.90 Cannabis use, unspecified, uncomplicated; F43.21 Adjustment disorder with depressed mood; M54.41 Lumbago with sciatica, right side; M48.061 Spinal stenosis, lumbar region without neurogenic claudication; S22.070D Wedge compression fracture of T9-T10 vertebra, subsequent encounter for fracture with routine healing; R13.13 Dysphagia, pharyngeal phase; K74.60 Unspecified cirrhosis of liver; B18.2 Chronic viral hepatitis C; R53.81 Other malaise; Z91.89 Other specified personal risk factors, not elsewhere classified
CPT/HCPCS: 36415; 70450; 71045; 72125; 72128; 72131; 72170; 80053; 81001; 82009; 82803; 82962; 83036; 83690; 83735; 84100; 84436; 84443; 84484; 85025; 85610; 85730; 87389; 93005; 97162; 97166; 99285; G0378; J1650; J7030

== ENCOUNTER 2023-12-14 20:35 | Observation (INO) | payer BC, SELFPAY ==
--- NOTE | 2023-12-14 20:38 | CT_ITS ---
PROCEDURE INFORMATION: Exam: CT Cervical Spine Without Contrast Exam date and time: 12/14/2023 9:00 PM Age: 58 years old Clinical indication: Injury or trauma; Fall; Blunt trauma TECHNIQUE: Imaging protocol: Computed tomography of the cervical spine without contrast. Radiation optimization: All CT scans at this facility use at least one of these dose optimization techniques: automated exposure control; mA and/or kV adjustment per patient size (includes targeted exams where dose is matched to clinical indication); or iterative reconstruction. COMPARISON: 1. CT CERVICAL SPINE WO CON 12/12/2023 7:[address] CERVICAL SPINE WO CON 10/25/2023 5:[address] CERVICAL SPINE WO CON 02/19/2022 7:37 PM FINDINGS: Bones: There is straightening of the normal spinal curvature. The cervical spine shows relatively preserved alignment of the vertebral bodies with no evidence of acute fractures or dislocations. However, age-related degenerative changes are observed, including mild disc space narrowing and osteophyte formation at multiple levels. These findings are consistent with age related degenerative disease. Lungs: Lung apices are normal. Vasculature: There are atherosclerotic calcifications of the carotid bulbs bilaterally. Soft tissues: Unremarkable. IMPRESSION: Multilevel degenerative change without acute injury identified.
--- NOTE | 2023-12-14 20:38 | XR_ITS ---
PROCEDURE INFORMATION: Exam: XR Pelvis Exam date and time: 12/14/2023 8:55 PM Age: 58 years old Clinical indication: Injury or trauma; Fall; Blunt trauma (contusions or hematomas); Bilateral; Pelvic region TECHNIQUE: Imaging protocol: Radiologic exam of the pelvis. Views: 1 or 2 view. COMPARISON: CR XR PELVIS 1-2V 12/12/2023 7:09 PM FINDINGS: Bones/joints: Unremarkable. No acute fracture. Soft tissues: Unremarkable. IMPRESSION: No acute findings.
--- NOTE | 2023-12-14 20:38 | XR_ITS ---
PROCEDURE INFORMATION: Exam: XR Chest Exam date and time: 12/14/2023 8:55 PM Age: 58 years old Clinical indication: Injury or trauma; Fall; Blunt trauma (contusions or hematomas) TECHNIQUE: Imaging protocol: Radiologic exam of the chest. Views: 1 view. COMPARISON: CR XR CHEST PORTABLE 12/12/2023 7:09 PM FINDINGS: Lungs: Unremarkable. No consolidation. Pleural spaces: Unremarkable. No pleural effusion. No pneumothorax. Heart/Mediastinum: Unremarkable. No cardiomegaly. Bones/joints: Unremarkable. IMPRESSION: No acute findings.
--- NOTE | 2023-12-14 20:38 | CT_ITS ---
PROCEDURE INFORMATION: Exam: CT Head Without Contrast Exam date and time: 12/14/2023 8:52 PM Age: 58 years old Clinical indication: Injury or trauma; Fall; Blunt trauma (contusions or hematomas) TECHNIQUE: Imaging protocol: Computed tomography of the head without contrast. Radiation optimization: All CT scans at this facility use at least one of these dose optimization techniques: automated exposure control; mA and/or kV adjustment per patient size (includes targeted exams where dose is matched to clinical indication); or iterative reconstruction. COMPARISON: 1. CT HEAD/BRAIN WO CON 12/12/2023 7:[address] HEAD/BRAIN WO CON 10/25/2023 5:[address] HEAD/BRAIN WO CON 02/19/2022 7:35 PM FINDINGS: Brain: Old left frontal infarct is noted. The brain parenchyma appears unremarkable, with no signs of acute intracranial hemorrhage or significant mass effect. There is hypodensity in the subcortical and periventricular white matter which is technically nonspecific but most often related to chronic microvascular disease. Cerebral ventricles: Mild ventricular enlargement consistent with age-related cerebral atrophy is noted. Paranasal sinuses: Paranasal sinuses show age-appropriate mucosal thickening. There are scattered areas of sinus mucosal thickening. Mastoid air cells: Visualized mastoid air cells are well aerated. Bones: There are no skull fractures or bony lesions. Soft tissues: Unremarkable. IMPRESSION: Presumably age-related and chronic changes without acute intracranial abnormality.
[2023-12-14 20:40] VITALS: BP 148/75; PULSE 102; RESP 15; TEMP 37.3; O2SAT 95; BMI 28.5
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
[2023-12-14 21:30] VITALS: BP 169/78; PULSE 74; O2SAT 95
--- NOTE | 2023-12-14 23:01 | PC.NURSE ---
Attempted to ambulate this patient, patient was able to stand at the bedside but could not move her legs and stated that her legs would not work.
--- NOTE | 2023-12-14 23:11 | PC.NURSE ---
call for bed assignment from warehouse stocker. dx: debility, inability to walk, general weakness.
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
[2023-12-14 23:20] VITALS: BP 190/98; PULSE 89; RESP 19; TEMP 36.8; O2SAT 98
[2023-12-15] MEDS: IRBESARTAN 150MG TAB 150 MG PO (00:35)
[2023-12-15 04:00] VITALS: BP 175/89; PULSE 82; RESP 16; TEMP 36.8; O2SAT 94; BMI 27.3
--- NOTE | 2023-12-15 04:29 | PC.NURSE ---
Since arriving to the floor the patient has had a good shift. Patient has a bath and got cleaned up from her BM. Patient walked x1 with a walker to the bathroom and tolerated it well with no issues. Patient has slept since getting her comfortable in bed. No other issues
[2023-12-15] MEDS: humaLOG 100 UNITS/ML 10ML VIAL (SSI) SQ ×4 (05:08→20:12)
[2023-12-15 05:16] LABS: POC Glucose,Bedside 155 (70-110)
[2023-12-15 06:27] LABS: Chloride 105 mmol/L (98-107)
[2023-12-15 06:28] LABS: Potassium 3.3 mmoL/L (3.5-5.1); Sodium 135 mmol/L (136-145)
[2023-12-15 06:31] LABS: Anion Gap 3.3 mEq/L (5-15); Blood Urea Nitrogen 15 mg/dl (7-17); Calcium 8.6 mg/dl (8.4-10.2); Carbon Dioxide 30 mmol/L (22.0-30.0); Creatinine Clearance Estimated 88 mL/min (50-200); Estimated Glomerular Filt Rate 74 ml/min (>60); GFR (African American) 90 ML/MIN (>60); Glucose 150 mg/dl (74-100); Magnesium 1.6 mg/dl (1.6-2.3)
[2023-12-15 08:00] VITALS: BP 166/83; PULSE 82; RESP 18; TEMP 37.3; O2SAT 96
[2023-12-15] MEDS: POTASSIUM CHLORIDE 20MEQ TAB 40 MEQ PO ×2 (09:18→12:40)
[2023-12-15] MEDS: CITALOPRAM 40MG TABLET 40 MG PO (09:18)
[2023-12-15] MEDS: ENOXAPARIN 40MG/0.4ML SYRINGE 40 MG SQ (09:19)
[2023-12-15] MEDS: MAGNESIUM SULFATE IN WATER 2 GM/50 ML PIGGYBACK IV ×2 (09:22→10:30)
[2023-12-15 10:56] LABS: POC Glucose,Bedside 297 (70-110)
--- NOTE | 2023-12-15 11:00 | HMH.PHAINT1 ---
Pharmacy Intervention Comments: MEDICATION RECONCILIATION COMPLETE USING EXTERNAL PHARMACY FILL HISTORY, MOST RECENT MD OFFICE VISIT NOTE, MOST RECENT HOSPITAL DISCHARGE NOTE. IT APPEARS PATIENT IS NON-COMPLIANT WITH TAKING MEDICATIONS, INCLUDING INSULIN. MOST MEDICATIONS NOT FILLED SINCE JULY 2023 FOR 30 DAY SUPPLY.
[2023-12-15 16:00] VITALS: BP 145/86; PULSE 83; RESP 18; TEMP 37.3; O2SAT 96
[2023-12-15 16:44] LABS: POC Glucose,Bedside 201 (70-110)
--- NOTE | 2023-12-15 18:38 | PC.NURSE ---
NO ACUTE CHANGES FROM PREVIOUS ASSESSMENT. HAS BEEN INCONTINENT OF BLADDER TODAY. TOLERATING DIET WELL. NO COMPLAINTS VOIVED
[2023-12-15 20:00] VITALS: PULSE 86; RESP 16; TEMP 37.4; O2SAT 95
[2023-12-15 20:12] LABS: POC Glucose,Bedside 228 (70-110)
[2023-12-15] MEDS: PANTOPRAZOLE 40MG TABLET 40 MG PO (20:12)
[2023-12-15] MEDS: PRAVASTATIN 40MG TAB 40 MG PO (20:12)
[2023-12-15] MEDS: INSULIN GLARGINE 100 UNITS/ML 10ML VIAL 20 UNIT SQ (20:13)
--- NOTE | 2023-12-15 22:17 | EXP.PN ---
Subjective *Date: 12/15/23 *Time: 15:00 Interval history: Patient was sitting in bed eating lunch comfortably. No acute distress. Exam Data for Last 24 hours Vital signs and Labs for Last 24 Hours: Temp Pulse Resp BP Pulse Ox O2 Del Method 99.3 F 86 16 145/86 H 95 Room Air 12/15/23 20:00 12/15/23 20:00 12/15/23 20:00 12/15/23 16:00 12/15/23 20:00 12/15/23 20:00 Laboratory Results - last 24 hr 12/15/23 05:05: POC Glucose 155 H 12/15/23 05:55: Sodium 135 L, Potassium 3.3 L, Chloride 105, Carbon Dioxide 30, Anion Gap 3.3 L, BUN 15, Creatinine 0.80, Estimated Creat Clear 88, Estimated GFR 74, Est GFR ( Amer) 90, Glucose 150 H, Calcium 8.6, Magnesium 1.6 12/15/23 10:42: POC Glucose 297 H 12/15/23 16:22: POC Glucose 201 H 12/15/23 20:05: POC Glucose 228 H I & O for Last 24 hours: Intake & Output 12/12/23 12/13/23 12/14/23 12/15/23 23:59 23:59 23:59 23:59 Intake Total 1180 / 1180 Output Total 0 / 0 Balance 1180 / 1180 Weight 70.76 kg 67.495 kg Constitutional Constitutional: no acute distress *Routine HEENT Exam Head: Present normocephalic Eye: Present EOMI and PERRL ENT: Present mucous membranes moist *Routine Neck Exam Neck: Present supple; Absent lymphadenopathy *Routine Respiratory Exam Respiratory: Present CTA bilaterally *Routine Cardiovascular Exam Cardiovascular: Present RRR *Routine Abdominal Exam Abdominal: Present soft and normoactive bowel sounds; Absent tenderness *Routine Extremities Exam Extremities: Absent cyanosis, clubbing or edema *Routine Skin Exam Skin: Present warm; Absent rash *Routine Neurological Exam Neurological: Present alert and oriented X3 Routine Psychiatric Exam Psychiatric: Present depressed Assessment and Plan *Assessment and plan (1) Homelessness: Status: Acute Category: Social Hx Code(s): Z59.00 - Homelessness unspecified (2) Diabetes: Status: Chronic Qualifiers: Diabetes mellitus type: type 2 Diabetes mellitus skilled nursing insulin use: with terminal operations supervisor use Diabetes mellitus complication status: with hypoglycemia Diabetes mellitus complication detail: without coma Qualified Code(s): E11.649 - Type 2 diabetes mellitus with hypoglycemia without coma; Z79.4 - jail (current) use of insulin Category: Medical Code(s): E11.9 - Type 2 diabetes mellitus without complications (3) HTN (hypertension): Status: Acute Qualifiers: Hypertension type: primary hypertension Qualified Code(s): I10 - Essential (primary) hypertension Category: Medical Code(s): I10 - Essential (primary) hypertension Plan This is a 58-year-old female with chronic medical noncompliance, history of illicit drug use and now homeless. Problems addressed as follows: Homelessness Patient seems very sad that she is no longer able to live at her friend's home. Not very talkative today. She states she has no where else to go. Routine nursing evaluations Social work consult Case management consult, pending recommendations. Diabetes uncontrolled Routine blood sugar monitoring Basal insulin therapy Sliding scale insulin therapy Carbohydrate controlled diet Hypertension Routine blood pressure monitoring ARB therapy Hyperlipidemia Statin therapy Mood disorder SSRI therapy
[2023-12-16] VITALS: BP 111/64; PULSE 83; RESP 18; TEMP 36.6; O2SAT 95
[2023-12-16 03:50] LABS: Amphetamine/Metha Screen,Urine Negative ng/ml (<1000); Barbiturates Screen,Urine Negative ng/ml (<200); Benzodiazepines Screen,Urine Negative ng/ml (<200); Cannabinoid Screen,Urine Negative ng/ml (<50); Cocaine Screen,Urine Negative ng/ml (<300); Methadone Screen,Urine Negative ng/ml (<300); Opiate Screen,Urine Negative ng/ml (<300); Phencyclidine Screen,Urine Negative ng/ml (<25)
[2023-12-16 04:00] VITALS: BP 157/92; PULSE 82; RESP 16; TEMP 36.8; O2SAT 95; BMI 27.2
--- NOTE | 2023-12-16 04:29 | PC.NURSE ---
Patient has had a good night. She got a shower and washed her hair. She has had no complaints this shift.
[2023-12-16 05:39] LABS: POC Glucose,Bedside 155 (70-110)
[2023-12-16] MEDS: humaLOG 100 UNITS/ML 10ML VIAL (SSI) SQ ×4 (05:39→21:38)
--- NOTE | 2023-12-16 07:56 | HMH.PTEV ---
Physical Therapy Evaluation Rehab PT IP Evaluation Start: 12/15/23 14:29 Freq: ONCE Status: Active Protocol: Document 12/16/23 07:39 MAURO (Rec: 12/16/23 07:54 MAURO [id number]) Subjective/History History History Per H&P: This is a 58-year- old female who presents to [facility] emergency department after her losing her place to live. Her past medical history is significant for illicit drug use disorder, medical noncompliance, diabetes, hepatitis C and hypertension. She reports she fell and reports a past history of back problems. I was asked by the ED doctor to admit the patient for social admission and homelessness. In the ED her diagnostic studies identify stability and her glucose was 300. Multiple imaging identified no acute fractures. Subjective Subjective Pt minimally responsive to questions and with flat affect throughout session. PT inquired about pt's current living situation but pt did not respond to question. Pt did agree to mobility assessment and with request to use restroom. Pt IND with mobility prior with RW use. New diagnosis of cancer in past 12 No months? Rehab PT IP Eval Objective Appearance Patient Behavior Appropriate,Confused Patient Orientation Person Difficulty following instructions mild Speech Pattern Mumbled Ambulation Patient Able to Ambulate Yes Ambulation Observation IP General Gait Pattern Observation Wide Based Gait Ambulation Distance (feet) 30 Ambulation Assistive Device Rolling Walker Ambulation Ability Minimal x 1 (25% assist) Balance Ability to Arise Able, uses arms to help Sitting Balance Steady, safe Standing Balance Steady, wide stance Transfers Bed Transfer Ability Minimal x 1 (25% assist) Sit to Stand Bed Transfer Ability Contact Guard/Hand Hold Rehab PT IP prob,goals,plan Problems Date of Evaluation: 12/16/23 PT IP Problems Bed Mobility,Transfers,Gait, Balance,Self care,Safety Rehab Potential Rehab Potential Good Equipment Needs Assistive Devices Rolling / Wheeled Walker Plan PT Intervention Plan Bed Mobility,Transfers,Gait, Balance,Safety,Therapeutic Exercise Other Intervention Plan 1-2 times PT Plan Frequency Daily Duration LOS Discharge Goals Bed Transfer Ability Supervision/Stand by Sit to Stand Chair Transfer Ability Supervision/Stand by Ambulation Assistive Device Rolling Walker Ambulation Distance (feet) 50 Discharge Plan PT Discharge Plan Initial physical therapy evaluation performed. Patient presents below baseline at this time in functional mobility, transfers, and strength. Pt required increased time to perform all mobility d/t slower processing . Pt required mod VCs when navigating room as she demo'd multiple bouts of poor RW management/walking into objects. Pt denied a recent change in vision. Pt found incontinent of bladder and required Max A with toileting tasks (2/3 toileting hygiene tasks). Pt not safe to return to current living situation at this time d/t current level of functional mobility. PT does not feel pt will be able to perform community level navigation d/t endurance and gait impairments. PT recommending short-term rehabilitation stay upon d/c from [facility]. If pt does not obtain short-term rehabilitation placement, pt is at a high risk of functional decline and falls. Pt would benefit from skilled PT while at [facility] to prevent further functional decline and maximize safety with mobility . Eval Complexity Eval Charge Codes 82275 - Moderate Complexity PHYSICIAN CERTIFICATION: I certify the specified therapy services for Nicole Valdovinos are required, authorized, and reviewed every 30 days.
[2023-12-16 08:00] VITALS: BP 161/86; PULSE 88; RESP 18; TEMP 36.6; O2SAT 95
--- NOTE | 2023-12-16 08:54 | DIET.NUTRFU ---
patient had swallow study completed on 10/28- MSOFT chopped with honey thick liquids. Order adjusted
[2023-12-16] MEDS: CITALOPRAM 40MG TABLET 40 MG PO (09:11)
[2023-12-16] MEDS: ENOXAPARIN 40MG/0.4ML SYRINGE 40 MG SQ (09:11)
--- NOTE | 2023-12-16 09:40 | HMH.OTEV ---
OT Inpatient Evaluation Rehab OT IP Evaluation Start: 12/15/23 14:29 Freq: ONCE Status: Active Protocol: Document 12/16/23 09:34 VEGA (Rec: 12/16/23 09:40 [facility] [id number]) Rehab OT IP Assessment Subjective History Per H&P: This is a 58-year- old female who presents to emergency department after her losing her place to live. Her past medical history is significant for illicit drug use disorder, medical noncompliance, diabetes, hepatitis C and hypertension. She reports she fell and reports a past history of back problems. I was asked by the ED doctor to admit the patient for social admission and homelessness. In the ED her diagnostic studies identify stability and her glucose was 300. Multiple imaging identified no acute fractures. Subjective Pt minimally responsive to questions and with flat affect throughout session. OT inquired about pt's current living situation. She told therapist she had not where to live now. Prior to first hospitalization last week, pt claimed she lived with her friend. Pt also claimed she was independent with ADLs and IADLs. However, today pt appears to be slightly confused with a decline in functional status from last week. Pt was sitting in chair on arrival. Pt completed 2 sit to stands from chair with mod assist x 2. Mod/max verbal cues provided to utilize chair arms to push up from in order to stand. Pt had been incontinent and was dependent upon therapist to change brief while standing. Pt only able to stand for ~20-30 seconds both times with mod assist x 2 . Pt was left resting in chair with call wood and all other needs in reach. Objective Patient Orientation Person Right Upper Extremity Gross ROM WFL Left Upper Extremity Gross ROM WFL Transfer Training Sit/Stand Transfer Assist Level Moderate x 2 (50% assist) Lower Body Dressing Ability Unable/dependent Performing Toilet Hygiene Ability Unable/dependent Rehab OT IP prob,goals,plan Problems Date of Evaluation: 12/16/23 OT IP Problems Bed Mobility,Transfers,Balance ,Self care,Safety Rehab Potential Rehab Potential Good Equipment Needs Assistive Devices Rolling / Wheeled Walker Plan OT intervention Plan Bed Mobility,Transfers,Balance ,Self care,Safety,Therapeutic Exercise OT Plan Frequency Daily Duration LOS Discharge Goals Bed Mobility Ability Assistance x1 Sit to Stand Chair Transfer Ability Moderate x 1 (50% assist) Chair Transfer Ability Moderate x 1 (50% assist) Chair Transfer Technique Sit to/from Ambulatory Chair Transfer Assistive Devices Rolling Walker Feeding Ability Assist with Tray Set Up Lower Body Dressing Ability Moderate Assistance Upper Body Dressing Ability Minimal Assistance Bathing Ability Moderate Assistance Performing Toilet Hygiene Ability Moderate Assistance Overall Commode/Toilet Transfer Ability Moderate Assistance Commode/Toilet Transfer Technique Sit to/from Ambulatory Commode/Toilet Transfer Assistive Grab Bars Devices Decrease in Endurance Yes Discharge Plan OT Discharge Plan Pt will continue to be seen for OT services while at [facility]. Pt would benefit most from short term rehab at SNF following discharge from hospital. Pt demonstrates a significant functional decline with transfers and ADL independence since previous admission. Continued skilled therapy is important in order for patient to improve strength, safety, endurance, ADL independence, and functional transfers to reach PLOF. Eval Complexity Eval Charge Codes 13603 - Moderate Complexity PHYSICIAN CERTIFICATION: I certify the specified therapy services for Nicole Valdovinos are required, authorized, and reviewed every 30 days.
--- NOTE | 2023-12-16 09:52 | SW/DCPLANNER ---
Addendum entered by [facility] 12/17/23 13:19: [facility] this patient [facility] level of care. Patient will discharge today. Addendum entered by [facility] 12/17/23 10:14: Patient is agreeable for information to also be faxed to [facility] and [facility]. Addendum entered by [facility] 12/17/23 08:50: [facility] will be at bedside to evaluate patient this AM. Addendum entered by [facility] 12/17/23 07:41: [facility] is unable to accept this patient. [facility]/ [facility] is still reviewing patient information. Addendum entered by [facility] 12/16/23 14:48: Andreia guy/ [facility] is unable to accept this patient. Original Note: I spoke w/ this patient regarding plans once medically stable for discharge. PT/OT evaluated patient and recommended SNF level of care. Patient is agreeable to [facility] pending LTC placement at this time. Patient does understand how Medicaid placement will work. Patient requested [facility] and if they are not able to accept she is agreeable for information to be faxed to [facility] or [facility]. I will continue to follow up w/ facilities, patient and MD.
--- NOTE | 2023-12-16 13:28 | CT_ITS ---
FINAL REPORT TECHNIQUE: Noncontrast exam This study was performed with techniques to keep radiation doses as low as reasonably achievable, (ALARA). Individualized dose reduction techniques using automated exposure control or adjustment of mA and/or kV according to the patient''s size were employed. CLINICAL HISTORY: left sided weakness, left facial droop COMPARISON: 12/14/2023 FINDINGS: There is encephalomalacia in the anterior left frontal lobe and a chronic lacunar infarct within the central bekah. This appears similar to the prior exam. No abnormal density is seen. Ventricles are normal. There is no hemorrhage. No mass effect is seen. Bone windows show no evidence of fracture. IMPRESSION: Chronic findings with no acute mass or hemorrhage. Reviewed, Interpreted and Dictated by Gaurav Parsons MD Transcribed by Brenda Merino Authenticated and [facility]
--- NOTE | 2023-12-16 15:57 | P.PN_ITS ---
Subjective *Date: 12/16/23 *Time: 16:33 Interval history: Patient was sitting in bed this morning comfortably without acute concerns or distress. However, physical therapy was working with her this afternoon and conveyed patient had some left-sided weakness and hemineglect not seen this morning. Patient states she has a chronic left-sided lip droop. Exam Data for Last 24 hours Vital signs and Labs for Last 24 Hours: Temp Pulse Resp BP Pulse Ox O2 Del Method 97.9 F 88 18 161/86 H 95 Room Air 12/16/23 08:00 12/16/23 08:00 12/16/23 08:00 12/16/23 08:00 12/16/23 08:00 12/16/23 13:00 Laboratory Results - last 24 hr 12/15/23 16:22: POC Glucose 201 H 12/15/23 20:05: POC Glucose 228 H 12/16/23 02:35: Urine Opiates Screen Negative, Urine Methadone Screen Negative, Ur Barbituates Screen Negative, Ur Phencyclidine Scrn Negative, Ur Amphetamines Screen Negative, U Benzodiazepines Scrn Negative, Urine Cocaine Screen Negative, U Marijuana (THC) Screen Negative 12/16/23 05:26: POC Glucose 155 H I & O for Last 24 hours: Intake & Output 12/13/23 12/14/23 12/15/23 12/16/23 23:59 23:59 23:59 23:59 Intake Total 1330 / 1330 630 / 630 Output Total 0 / 0 0 / 0 Balance 1330 / 1330 630 / 630 Weight 70.76 kg 67.495 kg 67.188 kg Constitutional Constitutional: no acute distress *Routine HEENT Exam Head: Present normocephalic Eye: Present EOMI and PERRL ENT: Present mucous membranes moist *Routine Neck Exam Neck: Present supple; Absent lymphadenopathy *Routine Respiratory Exam Respiratory: Present CTA bilaterally *Routine Cardiovascular Exam Cardiovascular: Present RRR *Routine Abdominal Exam Abdominal: Present soft and normoactive bowel sounds; Absent tenderness *Routine Extremities Exam Extremities: Absent cyanosis, clubbing or edema *Routine Skin Exam Skin: Present warm; Absent rash *Routine Neurological Exam Neurological: Present alert, oriented X3 and CN II-XII intact; Absent sensory deficit Comments: Mildly decreased strength left arm. Mild left-sided lip droop, chronic. Routine Psychiatric Exam Psychiatric: Present depressed Assessment and Plan *Assessment and plan (1) Homelessness: Status: Acute Category: Social Hx Code(s): Z59.00 - Homelessness unspecified (2) Diabetes: Status: Chronic Qualifiers: Diabetes mellitus type: type 2 Diabetes mellitus long term care pharmacist insulin use: with detention use Diabetes mellitus complication status: with hypoglycemia Diabetes mellitus complication detail: without coma Qualified Code(s): E11.649 - Type 2 diabetes mellitus with hypoglycemia without coma; Z79.4 - keno terminal operator (current) use of insulin Category: Medical Code(s): E11.9 - Type 2 diabetes mellitus without complications (3) HTN (hypertension): Status: Acute Qualifiers: Hypertension type: primary hypertension Qualified Code(s): I10 - Essential (primary) hypertension Category: Medical Code(s): I10 - Essential (primary) hypertension Plan This is a 58-year-old female with chronic medical noncompliance, history of illicit drug use and now homeless. Problems addressed as follows: Homelessness Patient seems very sad that she is no longer able to live at her friend's home. Continues to be not very talkative. She states she has no where else to go. Routine nursing evaluations Social work consult Case management consult, pending recommendations. #Physical deconditioning ? PT OT consulted, recommended SNF placement. ? OT did notice some left-sided weakness, hemineglect. However, on my exam there are no focal neurological deficits. There is mild decreased motor strength in left arm, left-sided lip droop the latter which patient states is chronic. ? Stat CT head did not show acute findings. Diabetes uncontrolled Routine blood sugar monitoring Basal insulin therapy Sliding scale insulin therapy Carbohydrate controlled diet Gabapentin 300 mg nightly for peripheral neuropathy, dose can be increased as needed as patient states her lower extremities are painful from neuropathy Hypertension Routine blood pressure monitoring ARB therapy Hyperlipidemia Statin therapy Mood disorder SSRI therapy
[2023-12-16 16:00] VITALS: BP 166/74; PULSE 79; RESP 16; TEMP 37.5; O2SAT 94
--- NOTE | 2023-12-16 17:59 | PC.NURSE ---
pt has done fair this shift. pt did have some left sided weakness and facial droop this afternoon while therapy was in the pt's room. MD came to the bedside and assessed pt and he order a stat head CT. no other signs or symptoms of distress. vss.
[2023-12-16 20:00] VITALS: BP 173/90; PULSE 86; RESP 16; TEMP 37; O2SAT 94
[2023-12-16] MEDS: PANTOPRAZOLE 40MG TABLET 40 MG PO (20:35)
[2023-12-16] MEDS: GABAPENTIN 300MG CAPSULE 300 MG PO (20:35)
[2023-12-16] MEDS: PRAVASTATIN 40MG TAB 40 MG PO (20:35)
[2023-12-16 21:23] LABS: POC Glucose,Bedside 285 (70-110)
[2023-12-16] MEDS: INSULIN GLARGINE 100 UNITS/ML 10ML VIAL 20 UNIT SQ (21:45)
[2023-12-17] VITALS: BP 140/88; PULSE 92; RESP 16; TEMP 36.6; O2SAT 95
[2023-12-17 04:00] VITALS: BP 185/90; PULSE 75; RESP 16; TEMP 36.8; O2SAT 94; BMI 27.5
--- NOTE | 2023-12-17 04:59 | PC.NURSE ---
Patient is alert and oriented x4. Patient was observed to have eyes closed, respirations even and unlabored on room air, and no apparent distress throughout the night. Patient stated that she has a chronic left facial droop and used to wear dentures. She did also complain of some left-sided weakness in her extremities. The CT scan of her head resulted with chronic findings and no acute mass or hemorrhage. Patient's lung sounds were clear and her bowel sounds were active upon auscultation. S1/S2 heart sounds could be heard. She has received her scheduled medications, as well as glargine insulin, per MAY. Patient tends to have a short, violent-like cough after drinking fluids and taking PO medication. She has not had any further complaints this shift. She is currently resting supine in bed. No acute changes noted. Bed alarm is on. Call light within reach.
--- NOTE | 2023-12-17 06:10 | PC.NURSE ---
Addendum entered by Annika Holcomb RN 12/17/23 06:54: Blood pressure was taken at around 06:45 prior to any hydralazine administration and resulted 148/76. Patient did not need a dose of hydralazine at this time. Original Note: Suma NOEL informed me about the patient's increased blood pressure reading (185/90). Dr Barone was informed of this reading [id number] by me, and he requested a verbal order for Hydralazine 10 mg IV every 6 hours PRN for an SBP > 170.
[2023-12-17 08:00] VITALS: BP 142/64; PULSE 79; RESP 18; TEMP 36.9; O2SAT 98
[2023-12-17] MEDS: CITALOPRAM 40MG TABLET 40 MG PO (08:15)
[2023-12-17] MEDS: ENOXAPARIN 40MG/0.4ML SYRINGE 40 MG SQ (08:16)
[2023-12-17 08:55] LABS: POC Glucose,Bedside 169 (70-110)
[2023-12-17 08:55] LABS: POC Glucose,Bedside 102 (70-110)
[2023-12-17 08:55] LABS: POC Glucose,Bedside 195 (70-110)
[2023-12-17] MEDS: IRBESARTAN 75MG TABLET 75 MG PO (09:15)
[2023-12-17] MEDS: humaLOG 100 UNITS/ML 10ML VIAL (SSI) SQ (10:53)
[2023-12-17 11:35] VITALS: BP 161/79; PULSE 82; RESP 18; TEMP 37.2; O2SAT 95
--- NOTE | 2023-12-17 13:24 | EXP.DC.SUM ---
General Admission date:: 12/14/23 Discharge date: 12/17/23 HPI HPI HPI: This is a 58-year-old female who presents to [facility] emergency department after her losing her place to live. Her past medical history is significant for illicit drug use disorder, medical noncompliance, diabetes, hepatitis C and hypertension. She reports she fell and reports a past history of back problems. I was asked by the ED doctor to admit the patient for social admission and homelessness. In the ED her diagnostic studies identify stability and her glucose was 300. Multiple imaging identified no acute fractures. Hospital Course Hospital Course Hospital Course: This is a 58-year-old female with chronic medical noncompliance, history of illicit drug use and housing insecurity. Presented with physical deconditioning, poorly controlled diabetes, neuropathy. Adjustments made to medications. Therapy working with patient, needs placement for skilled rehab. Stable to discharge at this time. Has graciously been accepted by [facility] for further management. Problems addressed as follows: Omeless. Problems addressed as follows: #Physical deconditioning Housing insecurity ? PT OT consulted, recommended SNF placement due to patient's weakness and difficulty ambulating independently. OT did notice some left-sided weakness, hemineglect. However, on my exam there are no focal neurological deficits. There is mild decreased motor strength in left arm, left-sided lip droop the latter which patient states is chronic. Stat CT head did not show acute findings. Will transition to rehab. Patient will need assistance with housing support if meeting criteria to discharge home from facility. -Social work assisted with care during admission. Diabetes uncontrolled A1c 13.6 on admission. Adjustments made to diabetes regimen during admission. Will increase basal insulin to 30 units nightly. Recommend 5 units of short acting insulin with meals. Continue fingersticks ACHS. Further adjustments pending fingerstick glucose over the next week. Will need repeat A1c in 3 months. Diabetic neuropathy: Tolerating gabapentin well. Will continue gabapentin 300 mg 3 times a day to help with peripheral neuropathy and improve patient's mobility and tolerance of therapy. Hypertension: Continue irbesartan 75 mg daily. Blood pressure better controlled during admission Hyperlipidemia: Pravastatin 40 mg nightly Mood disorder: Citalopram 40 mg daily Total time spent on discharge 32 minutes in counseling, documentation, chart review, and direct care with patient. Exam Data for Last 24 hours Vital signs and Labs for Last 24 Hours: Temp Pulse Resp BP Pulse Ox O2 Del Method 99.0 F 82 18 161/79 H 95 Room Air 12/17/23 11:35 12/17/23 11:35 12/17/23 11:35 12/17/23 11:35 12/17/23 11:35 12/17/23 11:35 Laboratory Results - last 24 hr 12/16/23 11:31: POC Glucose 195 H 12/16/23 16:11: POC Glucose 169 H 12/16/23 20:42: POC Glucose 285 H 12/17/23 06:43: POC Glucose 102 I & O for Last 24 hours: Intake & Output 12/14/23 12/15/23 12/16/23 12/17/23 23:59 23:59 23:59 23:59 Intake Total 1330 / 1330 1170 / 1290 600 / 600 Output Total 0 / 0 0 / 0 200 / 200 Balance 1330 / 1330 1170 / 1290 400 / 400 Weight 70.76 kg 67.495 kg 67.188 kg 67.903 kg Constitutional Constitutional: no acute distress, chronically ill appearing and cooperative *Routine HEENT Exam Head: Present normocephalic Eye: Present EOMI and PERRL ENT: Present mucous membranes moist Comments: edentulous *Routine Neck Exam Neck: Present supple; Absent lymphadenopathy *Routine Respiratory Exam Respiratory: Present CTA bilaterally; Absent rhonchi, wheezes or crackles *Routine Cardiovascular Exam Cardiovascular: Present RRR *Routine Abdominal Exam Abdominal: Present soft and normoactive bowel sounds; Absent tenderness *Routine Rectal Exam Patient deferred: visual exam *Routine Exam Patient deferred: external exam *Routine Extremities Exam Extremities: Absent cyanosis, clubbing or edema *Routine Skin Exam Skin: Present warm; Absent rash *Routine Neurological Exam Neurological: Present alert, oriented X3 and moving all extremities; Absent altered mental status Routine Psychiatric Exam Psychiatric: Present depressed Results Data Completed and Pending Labs on day of discharge: Labs from last 24 hours 12/17/23 12/16/23 12/16/23 06:43 20:42 16:11 POC Glucose 102 285 H 169 H 12/16/23 11:31 POC Glucose 195 H DS: Diagnosis Discharge Diagnosis (1) Homelessness: Status: Acute Code(s): Z59.00 - Homelessness unspecified (2) Diabetes: Status: Chronic Code(s): E11.9 - Type 2 diabetes mellitus without complications Qualifiers: Diabetes mellitus complication detail: without coma Diabetes mellitus complication status: with hypoglycemia Diabetes mellitus oil heaterman insulin use: with oil heaterman use Diabetes mellitus type: type 2 Qualified Code(s): E11.649 - Type 2 diabetes mellitus with hypoglycemia without coma; Z79.4 - penitentiary (current) use of insulin (3) HTN (hypertension): Status: Inactive Code(s): I10 - Essential (primary) hypertension Qualifiers: Hypertension type: primary hypertension Qualified Code(s): I10 - Essential (primary) hypertension (4) General weakness: Status: Acute Code(s): R53.1 - Weakness (5) Debility: Status: Acute Code(s): R53.81 - Other malaise (6) Diabetic neuropathy: Status: Acute Code(s): E11.40 - Type 2 diabetes mellitus with diabetic neuropathy, unspecified Meds Home Medications and Allergies Home Medications ?Medication ?Instructions ?Recorded ?Confirmed ?Type citalopram 40 mg tablet 40 mg PO DAILY 30 days #30 tabs 12/17/23 Rx gabapentin 300 mg capsule 300 mg PO TID 30 days #90 caps 12/17/23 Rx insulin glargine 100 unit/mL (3 30 unit (0.3 mL) SQ HS 30 days #12/17/23 Rx mL) subcutaneous pen (Lantus mL Solostar U-100 Insulin) insulin lispro 100 unit/mL 7 unit (0.07 mL) SQ AC 30 days #12/17/23 Rx subcutaneous pen mL irbesartan 75 mg tablet 75 mg PO DAILY 30 days #30 tabs 12/17/23 Rx nicotine 21 mg/24 hr daily 21 mg transdermal DAILYP PRN 12/17/23 Rx transdermal patch Nicotine Cravings 30 days #28 ea pantoprazole 40 mg tablet,delayed 40 mg PO HS 30 days #30 tabs 12/17/23 Rx release pravastatin 40 mg tablet 40 mg PO HS 30 days #30 tabs 12/17/23 Rx New Prescriptions to Start Prescriptions: citalonakulm Irvin,Kd gabapentin Irvin,Kd insulin glargine [Lantus Solostar U-100 Insulin] Irvin,Kd insulin lispro Irvin,Kd irbesartan Irvin,Kd nicotine Kd Bryan pantoprazole Kd Bryan pravastatin Kd Bryan Allergies Allergy/AdvReac Type Severity Reaction Status Date / Time No Known Allergies Allergy Verified 11/04/23 14:25 Discharge Plan Disposition Patient Disposition: Xfer SNF Condition: Fair Discharge Order Discharge Orders: Discharge Order (Routine); Ordered 12/17/23 Ordered By: Kd Bryan Follow up Plan Prescriptions/Medication Reconciliation: New citalopram 40 mg Tablet 40 mg PO DAILY 30 Days Qty: 30 0RF pravastatin 40 mg Tablet 40 mg PO HS 30 Days Qty: 30 0RF pantoprazole 40 mg Tablet,Delayed Release (Dr/Ec) 40 mg PO HS 30 Days Qty: 30 0RF nicotine 21 mg/24 hr Patch 24 Hour 21 mg transdermal DAILYP PRN (Reason: Nicotine Cravings) 30 Days Qty: 28 0RF gabapentin 300 mg Capsule 300 mg PO TID 30 Days Qty: 90 0RF irbesartan 75 mg Tablet 75 mg PO DAILY 30 Days Qty: 30 0RF Changed insulin lispro 100 unit/mL insulin pen 7 unit SQ AC 30 Days Qty: 9 0RF insulin glargine [Lantus Solostar U-100 Insulin] 100 unit/mL (3 mL) insulin pen 30 unit SQ HS 30 Days Qty: 9 0RF Problem Reconciliation Problems Reviewed?: Yes Patient Discharge Instructions ACTIVITY: Continue current activity DIET: continue same diet Patient Instructions: How to Prevent Falls, DI for Muscle Weakness Print Language: Albanian Providers Primary Care Provider: Payam Fairchild Admit Provider: Payam Albert Attending Provider: Payam Albert
[2023-12-17] MEDS: GABAPENTIN 300MG CAPSULE 300 MG PO (14:23)
[2023-12-17 15:47] LABS: POC Glucose,Bedside 245 (70-110)
== END 2023-12-17 14:56 ==
LOC: ER 23:04 → 2ND 23:46
PROVIDERS: Family Medicine; Admitting Provider Student in an Organized Health Care Education/Training Program; Emergency Provider Emergency Medicine; PCP Internal Medicine; Visit Provider Student in an Organized Health Care Education/Training Program
DX: E11.649 Type 2 diabetes mellitus with hypoglycemia without coma (principal); Z73.89 Other problems related to life management difficulty; E55.9 Vitamin D deficiency, unspecified; I10 Essential (primary) hypertension; R29.6 Repeated falls; Z79.891 Long term (current) use of opiate analgesic; J44.9 Chronic obstructive pulmonary disease, unspecified; Z59.00 Homelessness unspecified; Z79.4 Long term (current) use of insulin; Z60.2 Problems related to living alone; Z79.899 Other long term (current) drug therapy; E11.42 Type 2 diabetes mellitus with diabetic polyneuropathy; B19.20 Unspecified viral hepatitis C without hepatic coma
CPT/HCPCS: 36415; 70450; 71045; 72125; 72170; 80048; 80307; 82962; 83735; 97162; 97166; 97530; 99285; G0378; J1650; J3475

== ENCOUNTER 2023-12-20 10:57 | Emergency (ER) | payer BC, SELFPAY ==
[2023-12-20] VITALS (28 sets, daily range): BP systolic 158–199; BP diastolic 87–106; PULSE 75–92; RESP 16–21; TEMP 36.9–37.6; O2SAT 91–94; BMI 29.2
--- NOTE | 2023-12-20 10:50 | PC.NURSE ---
dr parra at bedside
--- NOTE | 2023-12-20 10:51 | CT_ITS ---
FINAL REPORT TECHNIQUE: Noncontrast exam This study was performed with techniques to keep radiation doses as low as reasonably achievable, (ALARA). Individualized dose reduction techniques using automated exposure control or adjustment of mA and/or kV according to the patient''s size were employed. CLINICAL HISTORY: possible stroke. left side weakness COMPARISON: 12/16/2023 FINDINGS: Subacute infarct is seen of the medial right frontal lobe within the right ALVARO territory. There is a new hypodensity in the right bekah also suspicious for acute/subacute infarct. There is encephalomalacia of the left frontal lobe consistent with old infarct. There is mild atrophy. There is no hemorrhage, mass effect or edema. 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 No hemorrhage. Consider MRI follow-up. Reviewed, Interpreted and Dictated by Gaurav Parsons MD Transcribed by Jody Granda Authenticated and [facility]
--- NOTE | 2023-12-20 10:51 | CT_ITS ---
FINAL REPORT CLINICAL HISTORY: possible stroke, left sided weakness FINDINGS: CT NECK ANGIO, WITHOUT AND WITH CONTRAST TECHNIQUE: Thin section axial CT with contrast with multiplanar 3D MIP reconstruction. NASCET criteria and technique was utilized during interpretation. Aortic arch: Arch shows no significant narrowing. The left vertebral artery arises directly from the aortic arch as a normal variant. Great vessel origins are widely patent. Right carotid: No significant stenosis is seen of the cervical common or internal carotid artery. There is mild plaque disease at the bifurcation. Left carotid: No significant stenosis is seen of the cervical common or internal carotid artery. There is mild plaque disease at the bifurcation. Vertebrals: The vertebral arteries are normal. No significant stenosis is present. IMPRESSION: No significant stenosis of the cervical carotid arteries This study was performed using automated techniques to achieve radiation exposure as low as reasonably Reviewed, Interpreted and Dictated by Gaurav Parsons MD Transcribed by Sherice Jimenez Authenticated and [facility]
--- NOTE | 2023-12-20 10:51 | CT_ITS ---
FINAL REPORT CLINICAL HISTORY: possible stroke, left sided weakness FINDINGS: CTA HEAD TECHNIQUE: Thin section axial CT with contrast with 3D MIP reconstruction FINDINGS: No aneurysm is seen. There is occlusion of the mid right ALVARO corresponding to an area of recent infarct. Otherwise, the major intracranial vessels are patent without significant stenosis. IMPRESSION: Mid right ALVARO occlusion. This study was performed using automated techniques to achieve radiation exposure as low as reasonably achievable Reviewed, Interpreted and Dictated by Gaurav Parsons MD Transcribed by Sherice Jimenez Authenticated and [facility]
--- NOTE | 2023-12-20 10:56 | ECG_ITS ---
APPROVED REPORT Exam: Resting ECG HR:85 bpm ECG Measurements Heart Rate 85 AXES IL 146 P 14 QRSd 82 QRS 47 QT 378 T 29 QTc 420 Conclusion SINUS RHYTHM NONSPECIFIC T-WAVE ABNORMALITY BORDERLINE ECG Electronically signed by : TANNER SOSA, 12/21/2023 21:14:03
--- NOTE | 2023-12-20 10:57 | PC.NURSE ---
pt to CT vis stretcher
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
[2023-12-20 11:00] LABS: Basophils # 0.1 K/mm3 (0-0.2); Basophils % 0.7 % (0.1-2.0); Eosinophils # 0.1 K/mm3 (0.0-0.4); Eosinophils % 0.5 % (0.1-12.0); Hematocrit 41.4 % (37.0-47.0); Hemoglobin 13.4 g/dL (12.2-16.2); Lymphocytes # 1.6 K/mm3 (0.7-4.5); Lymphocytes % 16.2 % (10-50); Mean Corpuscular HGB Conc 32.3 g/dL (31.8-35.4); Mean Corpuscular Hemoglobin 27.9 pg (27.0-31.2); Mean Corpuscular Volume 86.6 fl (81-99); Mean Platelet Volume 9.8 fl (7.4-10.4); Monocytes # 0.4 K/mm3 (0.1-1.0); Monocytes % 4.2 % (1.7-9.3); Neutrophils # 7.6 K/mm3 (1.8-7.8); Neutrophils % 78.4 % (37.0-80.0); Platelet Count 203 K/mm3 (142-424); Red Blood Count 4.78 M/mm3 (4.20-5.40); Red Cell Distribution Width 14.7 % (11.5-17.5); White Blood Count 9.7 K/mm3 (4.8-10.8)
[2023-12-20] MEDS: IOPAMIDOL-370 (76%);100ML BOTTLE 80 ML IV (11:01)
[2023-12-20] MEDS: SODIUM CHLORIDE 0.9% 10ML FLUSH SYRINGE 10 ML IV (11:01)
[2023-12-20] MEDS: SODIUM CHLORIDE 0.9% 10ML SYR (RAD ONLY) 10 ML IV (11:01)
[2023-12-20 11:05] LABS: Albumin Level 3.8 g/dl (3.5-5.0); Chloride 104 mmol/L (98-107); Potassium 4.4 mmoL/L (3.5-5.1); Sodium 139 mmol/L (136-145)
--- NOTE | 2023-12-20 11:06 | PC.NURSE ---
pt returned from CT vis stretcher
[2023-12-20 11:08] LABS: Alanine Aminotransferase 22 U/L (12-78); Albumin/Globulin Ratio 1.1 (1.1-1.8); Alkaline Phosphatase 95 U/L (38-126); Anion Gap 3.4 mEq/L (5-15); Aspartate Amino Transferase 35 U/L (14-36); Bilirubin,Total 0.4 mg/dl (0.2-1.3); Blood Urea Nitrogen 30 mg/dl (7-17); Calcium 8.8 mg/dl (8.4-10.2); Carbon Dioxide 36 mmol/L (22.0-30.0); Estimated Glomerular Filt Rate 46 ml/min (>60); GFR (African American) 56 ML/MIN (>60); Globulin 3.4 g/dL (1.3-3.2); Glucose 147 mg/dl (74-100); Total Protein,Serum 7.2 g/dl (6.3-8.2)
[2023-12-20 11:09] LABS: INR 0.96 (0.9-1.1); Prothrombin Time 10.8 seconds (10.1-12.5)
--- NOTE | 2023-12-20 12:02 | PC.NURSE ---
Patient resting at this time.
[2023-12-20 12:47] LABS: Microscopic, Urine URINE MICROSCOPIC (MICROSCOPIC)
[2023-12-20 12:57] LABS: Appearance,Urine CLOUDY (Clear); Bilirubin,Urine Negative (Negative); Blood, Urine 2+ (Negative); Color,Urine YELLOW (Yellow); Glucose,Urine (UA) Negative (Negative); Ketones,Urine Negative (Negative); Leukocyte Esterase,Urine 2+ (Negative); Nitrate,Urine POSITIVE (Negative); Protein,Urine 3+ (Negative); Specific Gravity, Urine >= 1.030 (1.005-1.030); Urobilinogen,Urine 0.2 EU/dl (0.2)
--- NOTE | 2023-12-20 13:11 | PC.NURSE ---
Report called to Candel[facility] at [facility].
[2023-12-20 13:12] LABS: Bacteria,Urine 3+ /lpf; WBC,Urine TNTC #/hpf (0-3)
--- NOTE | 2023-12-20 16:13 | PC.NURSE ---
Patient resting in bed. No Needs at this time.
--- NOTE | 2023-12-20 16:44 | PC.NURSE ---
Patient asleep at this time. No needs.
--- NOTE | 2023-12-20 18:20 | PC.NURSE ---
pt changed into a dry brief and pulled up on ED stretcher for comfort with no complications; assist x 2.
[2023-12-20] MEDS: HYDRALAZINE 20MG/ML VIAL 10 MG IV (23:24)
--- NOTE | 2023-12-24 08:15 | PC.NURSE ---
faxed urine culture results to [facility] where pt was transferred,
== END 2023-12-20 23:25 | disposition short-term general hospital (02) ==
PROVIDERS: Emergency Medicine; Emergency Provider Student in an Organized Health Care Education/Training Program; PCP Family Medicine
DX: I63.9 Cerebral infarction, unspecified (principal); N39.0 Urinary tract infection, site not specified; B96.29 Other Escherichia coli [E. coli] as the cause of diseases classified elsewhere; E11.40 Type 2 diabetes mellitus with diabetic neuropathy, unspecified; E78.5 Hyperlipidemia, unspecified; I10 Essential (primary) hypertension; Z79.4 Long term (current) use of insulin; R29.708 NIHSS score 8
CPT/HCPCS: 70450; 70496; 70498; 80053; 81001; 85025; 85610; 87086; 87088; 87186; 93005; 96374; 99291; J0360; Q9967

== ENCOUNTER 2024-01-28 10:46 | Outpatient (CLI) | payer MEDICAID, SELFPAY ==
--- NOTE | 2024-01-28 10:54 | FL_ITS ---
FINAL REPORT CLINICAL HISTORY: dysphagia > 27.32mGy 4:58 fluoro time FINDINGS: MODIFIED BARIUM SWALLOW History: Dysphagia. FINDINGS: Fluoroscopy was provided for the speech pathologist to evaluate the swallowing mechanism. The patient was given several different consistencies of barium while the swallow was visualized fluoroscopically. The report of the speech pathologist should be consulted prior to making dietary decisions. Fluoro time: 4 minutes 58 seconds Radiation exposure in Reference air Kerma: 27.32 mGy. IMPRESSION: Modified barium swallow under fluoroscopic guidance. Please see the report of the speech pathologist for more detail. Films reviewed , interpreted and dictated by Dr. Gee. Transcribed by Kamran Rosenthal PA-C. Reviewed, Interpreted and Dictated by Shakir Gee III, MD Transcribed by YOLIE Dudley Authenticated and [facility]
--- NOTE | 2024-01-28 16:47 | HMH.SLMBS2 ---
Speech & Language Evaluation Speech/Language Mod Barium Swallow Start: 01/28/24 16:22 Freq: once Status: Complete Protocol: Document 01/28/24 16:22 SERA (Rec: 01/28/24 16:47 [facility] [id number]) Co-signed By ST Danika General Information General Current Food Consistancy NPO Dentition Edentulous Facial Symmetry Symmetrical Patient Orientation Person,Place,Time,Situation Ability to Follow Directions Excellent Communication Ability No Impairment MBS Recommendations Diet Dietary Recommendations Pureed,Thin Liquids Treatment/Strategies Treatment Recommendation Oral Motor Exercises,Chewing Exercises,Base of Tongue Exercises Strategy/Precaution Recommend Sitting Upright (90 deg),Chin Tuck,Double Swallow,No Straw, Liquids from Cup,Small Bites and Sips,Alternate Liquids/ Solids Mod Barium Swallow Impressions Summary and Impressions Oral Phase Impression Moderate Impairment Oral Phase Summary Moderate impairment of the oral phase of swallow. Labial closure was WFL for all consistencies trialed. No bolus pooling or scattered loss noted on any consistency trialed. Reduced/prolonged mastication and manipulation of bolus on mechanical soft trial 2' fatigue/weakness. Pt expectorated mechanical soft bolus and stated it was too much . Mild oral residue noted on pudding, puree, and mechanical soft trials, which was cleared with lingual sweep and consecutive swallow. Pharyngeal Phase Impression Moderate Impairment Pharyngeal Phase Summary Moderate impairment of the pharyngeal phase of swallow. No aspiration noted on any consistency trialed. Inconsistent penetration noted during swallow on thin liquid via straw trials with and without chin tuck. Thin liquid via open cup was observed to be WFL. No A/P lingual propulsion spills noted on any consistency trialed. Minimal swallow delay on all consistencies trialed. Moderate impairment of base of tongue retraction and hyolaryngeal excursion and elevation on all consistencies trialed resulting in decreased epiglottic coverage. Mild diffuse oropharynx residue noted on pudding trial , which was cleared with double swallow and effortful swallow. Speech/Language MBS Assessment/Goals/Plan Assessment Date of Evaluation: 01/28/24 Evaluation Type Initial Certification Assessment/Problems dysphagia per MD order Does Patient Qualify for Service No Qualify/Failure Comment Based on clinical observations made throughout instrumental assessment (modified barium swallow study), pt would benefit from skilled speech therapy services in order to improve hyolaryngeal excursion and elevation, base of tongue retraction, and mastication and manipulation of bolus, however pt currently receives services at halfway facility and will continue services at facility. Recommendations PHYSICIAN CERTIFICATION: The specified therapy services are required, authorized, and reviewed every 30 days. Diet Recommendations Pureed Liquid Type Recommendations Normal/Thin SL Swallow Guidelines Alt bite w/sip thru meal, Standard Aspiration Prec., Crush meds as allowed*,Eat at slow rate,Oral Care Education Dysphagia Swallow Precautions/Strategies Sitting Upright (90 deg),Chin Tuck,Double Swallow,No Straw, Liquids from Cup,Small Bites and Sips,Alternate Liquids/ Solids Plan Pt/Guardian verbally ack understanding Yes of dx/prognosis/goals G -code Required No Education Instructions provided RUNNING SPECIALIST discussed clinical observations made throughout MBSS, diet recommendations, and compensatory strategies/ aspiration precautions with pt who expressed understanding. RUNNING SPECIALIST also gave written handout with information to caregiver. Pt/Caregiver able to recall information Able to recall/restate Reinforcement needed No Mod Barium Swallow Setup Exam Setup Radiologist Shakir Gee Level of Consciousness Awake,Alert,Appropriate, Follows Commands Mod Barium Swallow-Lat View Textures Lateral View Food Presentation Thin Liquid via Cup,Thin Liquid via Straw,Pureed Food- Thick,Mech. Soft Food- Regular ,Pudding Comment All bolus presentations were given x2 to assess for consistency and fatigue. RUNNING SPECIALIST did not administer regular food trial d/t pt's dentition and reduced mastication. Oral Phase Labial Closure No Impairment (WFL) Bolus Formation Pooling L/R No Impairment (WFL) Bolus Formation under Tongue No Impairment (WFL) Bolus Formation Scattered Loss No Impairment (WFL) Mastication Rotary Chew Moderate Impairment Mastication Munching Moderate Impairment Mastication Lateralization Moderate Impairment Lingual Movement Mild Impairment Residue Clearing Mild Impairment Pharyngeal Phase A/P Lingual Propulsion Spills No Impairment (WFL) Swallow Response Delay Minimal Impairment Base of Tongue Moderate Impairment Epiglottic Coverage Moderate Impairment Laryngeal Elevation Moderate Impairment Vallecular Retention Clearing Mild Impairment Pharyn. Wall Residue Clearing Mild Impairment Piriform Sinus Retention Mild Impairment Aspiration? No Silent aspiration? No Mod Barium Swallow-AP View Performed Mod Barium Swallow A/P View Test Not Applicable/Performed PHYSICIAN CERTIFICATION: I certify the specified therapy services for Nicole L Mineral are required, authorized, and reviewed every 30 days.
== END 2024-01-28 23:59 | disposition home or self-care (01) ==
LOC: RAD 10:48
PROVIDERS: PCP Nurse Practitioner Family; Visit Provider Nurse Practitioner Family
DX: R13.13 Dysphagia, pharyngeal phase (principal); I63.9 Cerebral infarction, unspecified
CPT/HCPCS: 70371; 92611

== ENCOUNTER 2024-06-17 09:24 | Outpatient (CLI) | payer MEDICAID, SELFPAY ==
[2024-06-17 09:49] LABS: Albumin Level 3.6 g/dl (3.5-5.0); Chloride 102 mmol/L (98-107)
[2024-06-17 09:50] LABS: Potassium 4.3 mmoL/L (3.5-5.1); Sodium 139 mmol/L (136-145)
[2024-06-17 09:52] LABS: Alanine Aminotransferase 20 U/L (12-78); Albumin/Globulin Ratio 1.3 (1.1-1.8); Anion Gap 7.3 mEq/L (5-15); Aspartate Amino Transferase 25 U/L (14-36); Blood Urea Nitrogen 17 mg/dl (7-17); Carbon Dioxide 34 mmol/L (22.0-30.0); Estimated Glomerular Filt Rate 87 ml/min (>60); GFR (African American) 105 ML/MIN (>60); Globulin 2.7 g/dL (1.3-3.2); Total Protein,Serum 6.3 g/dl (6.3-8.2)
[2024-06-17 09:53] LABS: Alkaline Phosphatase 111 U/L (38-126); Bilirubin,Total 0.2 mg/dl (0.2-1.3); Calcium 8.6 mg/dl (8.4-10.2); Chol/HDL Ratio 3.2 (1-3.5); Cholesterol 116 mg/dl (140-200); Glucose 225 mg/dl (74-100); HDL Cholesterol 36 mg/dl (40-60); Triglycerides 102 mg/dl (30-150); VLDL Cholesterol 20 mg/dL (0-40)
[2024-06-17 10:04] LABS: Direct LDL Cholesterol 56.57 mg/dL (100-129)
[2024-06-17 10:18] LABS: Hemoglobin A1C 6.9 % (4.0-6.0)
== END 2024-06-17 23:59 | disposition home or self-care (01) ==
PROVIDERS: PCP Nurse Practitioner Family; Visit Provider Nurse Practitioner Family
DX: I50.9 Heart failure, unspecified (principal); E11.9 Type 2 diabetes mellitus without complications; R79.9 Abnormal finding of blood chemistry, unspecified
CPT/HCPCS: 36415; 80053; 80061; 83036

== ENCOUNTER 2024-06-24 07:42 | Outpatient (CLI) | payer MEDICAID, SELFPAY ==
[2024-06-24 08:10] LABS: Glucose,Fasting 123 mg/dl (74-100)
== END 2024-06-24 23:59 | disposition home or self-care (01) ==
LOC: LAB 07:42
PROVIDERS: PCP Nurse Practitioner Family; Visit Provider Nurse Practitioner Family
DX: R73.01 Impaired fasting glucose (principal)
CPT/HCPCS: 36415; 82947

== ENCOUNTER 2024-08-05 07:23 | Outpatient (CLI) | payer MEDICAID, SELFPAY | END 2024-08-05 23:59 | disposition home or self-care (01) | PROVIDERS: PCP Nurse Practitioner Family; Visit Provider Nurse Practitioner Family | DX: E11.9 Type 2 diabetes mellitus without complications (principal); Z79.4 Long term (current) use of insulin | CPT/HCPCS: 36415; 83036 ==

== ENCOUNTER 2024-10-14 10:26 | Outpatient (CLI) | payer MEDICAID, SELFPAY ==
--- OUTSIDE RECORDS SUMMARY | 2024-10-14 10:30 | XMS_ITS | Clinical Summary ---
Author Organization [facility] Address [address] [place] [address] Care Team Providers Care Bell Spinner Sousaphones Name Role Phone Pcp, No Primary Care Provider Unavailabl e Allergies Active Allergy Reactions Criticality Noted Date Comments Codeine Unknown - Patient st ates they do not know rxn details Low 07/29/2004 Medications citalopram (CeleXA) 40 MG tablet Take 1 tablet (40 mg) by mouth daily. Active gabapentin (Neurontin) 300 MG capsule Take 1 capsule (300 mg) by mouth 3 (three) times a day. Active ondansetron (Zofran) 4 MG tablet Take 1 tablet (4 mg) by mouth every 8 hours as needed for nausea or vomiting. Active acetaminophen (Tylenol) 325 MG tablet Take 2 tablets (650 mg) by mouth every 6 (six) hours if needed for headaches or pain. Under [place] law, monthly prescriptions (30 days) can be refilled at 25 days and three-month prescriptions (90 days) at 80 days. Please contact the insurance company with questions if refills are denied. 4 Active losartan (Cozaar) 100 MG tablet 1 tablet (100 mg) by Per G Tube route 1 (one) time each day. 4 Active insulin glargine-yfgn 100 UNIT/ML injection vial Inject 0.08 mL (8 Units) under the skin 1 (one) time each day. 4 Active Additional Information Patient not taking.Reported on 05/22/2024 amLODIPine (Norvasc) 5 MG tablet 1 tablet (5 mg) by Per G Tube route 1 (one) time each day. 4 Active aspirin 81 MG chewable tablet 1 tablet (81 mg) by Per G Tube route 1 (one) time each day. 4 Active atorvastatin (Lipitor) 80 MG tablet 1 tablet (80 mg) by Per G Tube route every night. 4 Active clopidogrel (Plavix) 75 MG tablet 1 tablet (75 mg) by Per G Tube route 1 (one) time each day. 4 Active dantrolene (Dantrium) 5 mg/mL oral suspension 5 mL (25 mg) by Per G Tube route 2 (two) times a day. 4 Active Additional Information Patient not taking.Reported on 05/22/2024 insulin regular (HumuLIN R,NovoLIN R) 100 UNIT/ML injection Inject 0-0.05 mL (0-5 Units) under the skin every 6 (six) hours. See After Visit Summary for instructions on how to take your insulin. 4 Active Additional Information Patient not taking.Reported on 05/22/2024 magic butt balm (Karaya gum) CMPD (Magic Butt) Apply 1 Application topically every 1 (one) hour if needed for diaper rash (diaper change). 4 Active Additional Information Patient not taking.Reported on 05/22/2024 polyethylene glycol (Miralax) 17 g packet 17 g by Nasogastric route 2 (two) times a day. 4 Active senna-docusate (Michelle-Colace) 8.6-50 MG tablet 2 tablets by Nasogastric route 2 (two) times a day. 4 Active B-D UF III MINI PEN NEEDLES 31G X 5 MM misc 4 Active levoFLOXacin (Levaquin) 750 MG tablet Take 1 tablet (750 mg) by mouth 1 (one) time each day. 4 Active baclofen (Lioresal) 10 MG tablet Take 1 tablet (10 mg) by mouth. 5 Active Lantus SoloStar 100 UNIT/ML injection pen 5 Active insulin lispro (Admelog, HumaLOG) 100 UNIT/ML injection pen 5 Active Active Problems Problem Noted Date Diagnosed Date Acute hyperglycemia 04/06/2024 Acute lower urinary tract infection 04/06/2024 Anxiety 04/06/2024 Closed wedge compression fracture of T11 vertebr a 04/06/2024 HCV (hepatitis C virus) 04/06/2024 Obesity (BMI 30.0-34.9) 04/06/2024 UTI (urinary tract infection) 04/06/2024 Vitamin D deficiency 04/06/2024 Essential hypertension 01/09/2024 Anxiety and depression 01/09/2024 Tobacco abuse 01/09/2024 Dysphagia 01/09/2024 Impaired mobility and activities of daily living 01/09/2024 Muscle spasticity 01/09/2024 History of hepatitis C 01/09/2024 Pressure ulcer 01/09/2024 Type 2 diabetes mellitus 01/09/2024 Neuropathy 01/09/2024 Hyperlipidemia 01/09/2024 Cerebrovascular accident (CV A) due to occlusion of right anterior cerebral artery 12/23/2023 Acute ischemic stroke 12/21/2023 Immunizations Immunization Administration Dates Next Due Hep A, Adult 10/14/2013 Hep B, adult 10/14/2013 Influenza, Unspecified 11/23/2013 Influenza, injectable, quadrivalent, preservativ e free 12/20/2015 Pneumococcal Conjugate PCV 13 10/14/2013 Social History Tobacco Use Types Packs/Day Years Used Date Smoking Tobacco: Every Day Cigarettes 1 41.8 Started: 12/23/1982 Tobacco Cessation:Ready to Q uit: Not Asked; Counseling Given: Not Answered Alcohol Use Standard Drinks/Week Comments Never 0 (1 standard drink = 0.6 oz pur e alcohol) Humiliation, Afraid, Rape, and Kick questionnair e Answer Date Recorded Within the last year, have y ou been afraid of your partner or ex-partner? No 12/23/2023 Within the last year, have y ou been humiliated or emotionally abused in other ways by your partner or ex-partner? No Within the last year, have y ou been kicked, hit, slapped, or otherwise physically hurt by your partner or ex-partner? No 12/23/2023 Within the last year, have y ou been raped or forced to have any kind of sexual activity by your partner or ex-partner? No 12/23/2023 PHQ-2 Answer Date Recorded Patient Health Questionnaire-2 Score 0 05/22/2024 Hunger Vital Sign Answer Date Recorded Within the past 12 months, y ou worried that your food would run out before you got the money to buy more. Never true 12/23/19 24 Within the past 12 months, t he food you bought just didn't last and you didn't have money to get more. Never true 12/23/2023 PRAPARE - Transportation Answer Date Re corded In the past 12 months, has l ack of transportation kept you from medical appointments or from getting medications? No 11/25 In the past 12 months, has l ack of transportation kept you from meetings, work, or from getting things needed for daily living? No 12/23/2023 Housing Stability Vital Sign Answer Eric e Recorded In the last 12 months, was t here a time when you were not able to pay the mortgage or rent on time? No 12/23/2023 In the last 12 months, how many places have you lived? 2 12/23/2023 In the last 12 months, was t here a time when you did not have a steady place to sleep or slept in a senior care (including now)? No 12/23/2023 PHQ-9 Answer Date Recorded Patient Health Questionnaire-9 Score 0 05/22/2024 Utilities Answer Date Recorded In the past 12 months has th e electric, gas, oil, or water company threatened to shut off services in your home? No 12/23/2023 Comments No Sex and Gender Information Value Date Recorded Sex Assigned at Not on file Legal Sex Female 8:44 PM EDT Gender Identity Not on file Sexual Orientation Not on file Last Filed Vital Signs Vital Sign Reading Time Taken Comments Blood Pressure 121/80 06/10/2024 9:29 AM EDT Pulse 84 05/22/2024 11:34 AM EST Temperature 36.7 C (98.1 F) 01/09/2024 11:16 AM EDT Respiratory Rate 15 01/09/2024 11:16 AM EDT Oxygen Saturation 97% 05/22/2024 11:34 AM EST Inhaled Oxygen Concentration - - Weight 63.5 kg (140 lb) 06/10/2024 9:29 AM EDT Height 157.5 cm (5' 2 ) 06/10/2024 9:29 AM EDT Body Mass Index 25.61 06/10/2024 9:29 AM EDT Plan of Treatment Upcoming Encounters Date Type Department Care Team (Late st Contact Info) Description 12/17/2024 10:00 AM EDT Office Visit [place] [facility] [address], [address] [place] [address] Marine Feliciano, PA [address] [place] [address] Health Maintenance Due Date Last Done Comments [facility]-HIV Screening 1965 [facility]-Infant/Child/Adol SDOH Screenings 1965 Diabetes: Dental Exam 11/26/1977 [facility]-DTaP,Tdap,and Td Vaccine s (1 - Tdap) 11/26/1986 [facility]-Pap Smear 11/26/1988 [facility]-Cervical Cancer Screening 11/26/1997 [facility]-HPV/Cotest 11/26/1997 CT Colonography 11/26/2012 Colonoscopy 11/26/2012 FIT-DNA 11/26/2012 FIT 11/26/2012 FOBT 11/26/2012 Sigmoidoscopy 11/26/2012 [facility]-Colorectal Cancer Screening 11/26/2012 [facility]-Hepatitis B Vaccines (2 of 3 - 19+ 3-dose series) 11/11/2013 10/14/2013 [facility]-Pneumococcal Vaccine: 50 + Years (2 of 2 - PPSV23) 12/09/2013 10/14/2013 [facility]-Hepatitis A Vaccines (2 of 2 - Risk 2-dose series) 04/16/2014 10/14/2013 [facility]-Breast Cancer Screening 11/26/2017 [facility]-Lung Cancer Screening 11/26/2017 [facility]-Zoster Vaccines (1 of 2) 11/26/2017 [id number] Vaccine ( - season) 2023 [facility]-Diabetes: Hemoglobin A1C 03/21/2024 12/21/2023 [facility]- SDOH Screenings 06/21/2024 [facility]-Adult SDOH Screenings 06/21/2024 12/23/2023 [facility]-Influenza Vaccine (#1) 11/23/202412/19, 11/23/2013 [facility]-Depression Screening 05/22/2025 025, 05/22/2024 [facility]-Obesity Intervention Completed 025, 05/22/2024 HPV Vaccines Aged Out No longer eligi ble based on patient's age to complete this topic [facility]-HIB Vaccines Aged Out No longer e ligible based on patient's age to complete this topic [facility]-IPV Vaccines Aged Out No longer e ligible based on patient's age to complete this topic [facility]-Rotavirus Vaccines Aged Out No lo nger eligible based on patient's age to complete this topic Procedures Procedure Name Priority Date/Time Associated Diagnosis Comments HEMOGLOBIN A1C Routine 12/21/2023 2:02 AM EDT from Last 3 Months or Most Recently Relevant to Health Maintenance Results * (ABNORMAL) Hemoglobin A1c (12/21/2023 2:02 AM EDT) Hemoglobin A1c 12.3(H) <5.7 % 12/21/2023 4:30 AM EDT [facility] Blood Venous blood specimen / Unknown Venipuncture / Unknown 12/21/2023 2:02 AM EDT 12/21/2023 2:23 AM EDT Narrative [facility] - 12/21/2023 4:30 AM EDT HA1C Interpretive Data: Diagnosis of Diabetes: Diabetic > or = 6.5% Pre-diabetic 5.7 to 6.4% Non-diabetic < or = 5.6% Glycemic Targets for Type I and Type II Diabetics: Non- Adults <7.0% Adults <6.0% Children and Adolescents <7.5% Source: [place] [employer]. Standards of medical care in diabetes,2017. Diabetes Care.2017:40 (suppl 1):S1-S135. HbA1c assay performed by an ion-exchange chromatography method that is certified traceable to the DCCT. 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 Yes Patient has decision-making capacity? Yes Care Teams Bell Spinner Sousaphones Relationship Specialty Start Date End Date Pcp, No [address] [place] [address] PCP - General Family Medicine 05/22/24
--- NOTE | 2024-10-14 10:34 | FL_ITS ---
FINAL REPORT CLINICAL HISTORY: ASPIRATION AND DYSPHAGIA 3.14 min fluoro time 22 mgy FINDINGS: FLUOROSCOPY LESS THAN 1 HOUR HISTORY: Fluoroscopy guidance. FINDINGS: Fluoroscopic guidance was provided for modified barium swallow. A total of 3.14 minutes of fluoroscopy time were used. DAP: 22 mGy IMPRESSION: As above. Reviewed, Interpreted and Dictated by Randi Hector MD Transcribed by Colleen Trejo Authenticated and [facility]
[2024-10-14] MEDS: BARIUM SULFATE(LIQUID E-Z-PAQUE);355ML BOTTLE 355 ML PO (10:51)
--- NOTE | 2024-10-14 11:30 | HMH.SLMBS2 ---
Speech & Language Evaluation Speech/Lang Modified Barium Swallow Start: 10/14/24 11:10 Freq: once Status: Complete Protocol: Document 10/14/24 11:10 DEANNA (Rec: 10/14/24 11:30 DEANNA [id number]) POWDERER Evaluation Information POWDERER Evaluation Information Date of Evaluation: 10/14/24 Time of Evaluation: 10:45 Evaluation Type Initial Certification Reason for Referral dysphagia per MD order Does Patient Qualify Yes for Service Qualify/Failure Based on clinical observations made throughout MBSS, pt Comment would benefit from skilled speech therapy services in her [facility] environment to target dysphagia exercises to improve efficiency of oropharyngeal phase of the swallow. MBS Recommendations Recommendation PHYSICIAN CERTIFICATION: The specified therapy services are required, authorized, and reviewed every 30 days. Patient will be Seen 1 # Times/Week For # of Weeks 12 Plan Anticipate reaching 8 STG in # weeks Anticipate reaching 12 LTG in # weeks Pt/Guardian verbally Yes ack understanding of dx/prognosis/ goals Diet Dietary Mechanical Soft,Chopped Meats,Thin Liquids,[place] Recommendations Liquids SL Swallow Alt bite w/sip thru meal,Standard Aspiration Prec. Guidelines Comment provided 2 options for liquids with pt education; pills in pudding or puree Treatment/Strategies Treatment Base of Tongue Exercises,Pharyngeal Resistive Exer, Recommendations Compens. Strategy Educat. Strategy/Precaution Sitting Upright (90 deg),Chin Tuck,Double Swallow, Recommended Supraglottic Swallow,No Straw,Small Bites and Sips, Alternate Liquids/Solids POWDERER Patient History Section POWDERER Patient History Does Patient Yes Experience Coughing or Choking Episodes? Coughing or Choking Reportedly got choked on peanut butter in [facility] Comment per pt report Does Patient Avoid Yes Certain Food Textures/ Consistencies? Food Textures/ pt on MS diet Consistencies Comment Does Patient Utilize No Compensatory Strategies During Meals? Does Pt have Hx of Yes Recurrent Pneumonias or Respiratory Infections? Mod Barium Swallow Study Patient Orientation Patient Orientation Person,Place,Situation Oral Expression Mild Impairment Ability Ability to Follow Good Directions Is Patient able to Yes Perform Volitional Throat Clear? Is Patient able to Yes Perform Volitional Cough? Is Patient able to Yes Manage Secretions Independently? Mod Barium Swallow Set Up Radiologist Shakir Gee Patient Presentation Awake,Alert,Appropriate,Follows Commands : Bolus Consistencies Thin Liquids,[place] Thick Liquids,Pudding,Puree, Trialed: Mechanical Soft,Pill (Barium Tablet) MBSS Observations Consistency & Strategy Trial Mechanical Soft Penetration/ 1 Aspiration Scale PAS Amount Trace Pharyngeal Residual 10-49% Mechanical Soft Half Bolus Penetration/ 1 Aspiration Scale PAS Amount Trace Pharyngeal Residual 0-9% Puree Full Spoon Penetration/ 2 Aspiration Scale PAS Amount Trace Pharyngeal Residual 10-49% Puree Half Spoon Penetration/ 1 Aspiration Scale PAS Amount Trace Pharyngeal Residual 0-9% Pudding Full Spoon Penetration/ 3 Aspiration Scale PAS Amount Trace Pharyngeal Residual 10-49% Pudding Half Spoon Penetration/ 1 Aspiration Scale PAS Amount Trace Pharyngeal Residual 0-9% [place] Subsequent Sips from Cup Penetration/ 3 Aspiration Scale PAS Amount Trace Pharyngeal Residual 10-49% [place] Open Cup Sip Penetration/ 2 Aspiration Scale PAS Amount Trace Pharyngeal Residual 10-49% Thin Subsequent Sips from Cup Penetration/ 4 Aspiration Scale PAS Amount Trace Pharyngeal Residual 10-49% Thin Straw Sip Penetration/ 4 Aspiration Scale PAS Amount Trace Pharyngeal Residual 10-49% Thin Open Cup Sip Penetration/ 2 Aspiration Scale PAS Amount Trace Pharyngeal Residual 10-49% Mod Barium Swallow Impressions Oral Phase Summary & Impressions Oral Phase: Mild Impairment Impression Oral Phase: Labial Minimal Impairment Closure Oral Phase: Bolus Minimal Impairment Formation Pooling L/ R Oral Phase: Bolus Mild Impairment Formation Under Tongue Oral Phase: Bolus Mild Impairment Formation Scattered Loss Oral Phase: Moderate Impairment Mastication Rotary Chew Oral Phase: Moderate Impairment Mastication Munching Oral Phase: Moderate Impairment Mastication Lateralization Oral Phase: Lingual Mild Impairment Movement Oral Phase: Residue Moderate Impairment Clearing Oral Phase: Summary Mild to moderate impairment of the oral preparatory and oral transit phases of the swallow; likely 2' edentulous dentition status. Pt exhibits increased mastication time with scattered loss and bolus formation under the tongue with pudding/puree/ mechanical soft consistencies. Pt also exhibits residue within the oral cavity and has difficulty with oral transit. Pharyngeal Phase Summary & Impressions Pharyngeal Phase: Moderate Impairment Impression Pharyngeal Phase: A/ Moderate Impairment P Lingual Propulsion Spills Pharyngeal Phase: Moderate Impairment Swallow Response Delay Pharyngeal Phase: Moderate Impairment Base of Tongue Pharyngeal Phase: Moderate Impairment Epiglottic Coverage Pharyngeal Phase: Moderate Impairment Laryngeal Elevation Pharyngeal Phase: Moderate Impairment Vallecular Retention Clearing Pharyngeal Phase: Mild Impairment Pharyngeal Wall Residue Clearing Pharyngeal Phase: Mild Impairment Piriform Sinus Retention Pharyngeal Phase: Moderate impairment of the pharyngeal phase of the Summary swallow. Pt has limited hyolaryngeal excursion resulting in reduced epiglottic coverage. Pt also is noted to have decreased BOT retraction. AP spills and premature spillage across all consistencies resulted in residual pooling in vallecular space. Nicole was noted to be able to tolerate thin liquids when implementing small sips and a chin tuck with no overt s/sxs of aspiration. Without these precautions she was observed to aspirate thin liquid trial. Pt had penetration of nectar thick liquids with subsequent sips from cup and residue was observed to pool in vallecula. Aspiration Aspiration? Yes Degree of Aspiration Small : When Aspirated: During the swallow Consistencies thin, penetration of subsequent sips of nectar thick Aspirated: Silent Aspiration? No POWDERER MBSS Goals MBS Museum Or Zoo Director Goals Patient will utilize Double Swallow,Chin Tuck,No Straws,Alternate Bites & compensatory Sips,Sitting Upright,Small Bites & Sips,Puree/Pudding/ strategies with PO Liquid Wash intake in order to meet nutrition and hydration needs for daily meals without overt signs/symptoms of aspiration. The patient will Mechanical Soft,Chopped Meats,Thin Liquids,[place] tolerate the least Liquids restrictive diet with a safe/ efficient swallow to maintain adequate nutrition and hydration. MBS Goals Comment provided 2 choices for liquids ?The patient and/or Yes family will participate in further education for swallowing goals . The patient will Supraglottic Swallow,Geni Maneuver,Falsetto E,HAWK, complete a home EMST,CTAR (Isometric),CTAR (Isokinetic) education program of dysphagia exercises and/or complete structured swallowing therapy to improve swallow function through utilization of recommended therapy approaches [facility] Short Term Goals The patient will Supraglottic Swallow,Geni Maneuver,Falsetto E,HAWK, demonstrate __% EMST,CTAR (Isometric),CTAR (Isokinetic) accuracy and require ____ cuing in structured swallowing therapy with the POWDERER using the following exercises/therapy approaches and therapy assisted devices. Accuracy Percentage 80 Demonstration Cueing Requirement Moderate Pt. will tolerate Yes least restrictive diet w/o any overt s /s of aspiration & penetration independently w/ use of required compensatory strategies in order to meet nutrition & hydration needs for daily meals. Dietary Mechanical Soft,Chopped Meats,Thin Liquids,[place] Recommendations: MBS Liquids Short Term Goals Compensatory Double Swallow,Chin Tuck,No Straws,Alternate Bites & Strategies: MBS Sips,Sitting Upright,Small Bites & Sips,Puree/Pudding/ Short Term Goals Liquid Wash Education Instructions Discussed results of MBSS and diet recommendations and provided reviewed aspiration risks/precautions and compensatory strategies with pt and caregiver both of which expressed understanding. POWDERER also provided written explanation for SNF POWDERER. Patient/Caregiver Able to recall/restate Able to Recall Information Reinforcement needed No PHYSICIAN CERTIFICATION: I certify the specified therapy services for Nicole Valdovinos are required, authorized, and reviewed every 30 days.
== END 2024-10-14 23:59 | disposition home or self-care (01) ==
LOC: RAD 10:27
PROVIDERS: PCP Family Medicine; Visit Provider Family Medicine
DX: R13.12 Dysphagia, oropharyngeal phase (principal)
CPT/HCPCS: 74230; 92611

== ENCOUNTER 2024-11-20 07:28 | Outpatient (CLI) | payer MEDICAID, SELFPAY ==
--- OUTSIDE RECORDS SUMMARY | 2018-09-10 09:00 | XMS_ITS | Continuity of Care Document ---
Author Organization [facility] o Address [address] [place] [address] Phone Care Team Providers Care Portable Pinch Riveter Name Role Phone Juan Alvarez MD Unavailable Unavailable Medications Medication Instructions Dosage Effective Dates (start - stop) Status Comments diclofenac sodium (bulk) 100% powder Take 2 grams by topical route 4 times per day - Active 8E Baclo 2% Diclo 3% DMSO 5% Krista 6% Lido 2% Prilo 2% Pharm to comp-120 amount Procedures Procedure Date Office/outpatient visit,new, [facility] [place] 2018 X-ray exam of foot, complete X-ray exam of foot, complete Advance Directives Directive Yes / No Effective Date File Name No Information Encounters Encounter Description Practice Location Reason(s) For Visit Diagnoses Date Provider Providers Copied on Encounter Office/outpat ient visit,new, [facility] [place] [facility], [address] [facility], [facility] [place], [address], tel:[phone] 00 [facility] No Information 9 Antonio Martinez. [address] [facility] [id number] , [place]. tel:[phone] Referring Provider: Juan Espinoza, [address] [facility] [place], [address] . tel:[phone] Family History Family Member Type Diagnosis Age At Onset No Information Payers Payer name Insurance type Covered democrat ID Authoriza tion(s) Healthy Blue - [place] Medicaid MC [id number] Social History Type Description Quantity Date Captured Comments Sex Female Smoking Status No Information Chief Complaint And Reason For Visit No Information Reason For Referral Reason For Referral No Information History Of Present Illness Encounter Date Complaint History Of Prese nt Illness No Information Functional Status Date Functional Assessmen t No Information Instructions Date Instruction Additional Infor mation No Information Assessments Type Assessment Date No Information Patient Care Teams Name Effective Dates (start - stop) Status Members No Information
--- OUTSIDE RECORDS SUMMARY | 2024-11-20 07:31 | XMS_ITS | Clinical Summary ---
Author Organization [facility] Address [address] [place] [address] Care Team Providers Care Poultry Field Service Technician Name Role Phone Pcp, No Primary Care [...] if needed for headaches or pain. Under [place] law, monthly prescriptions (30 days) can be [...] Date Smoking Tobacco: Every Day Cigarettes 1 41.9 Started: 12/23/1982 Tobacco Cessation:Ready to Q uit: [...] place to sleep or slept in a fci (including now)? No 12/23/2023 PHQ-9 Answer Date [...] Visit [place] [facility] [address] [place] [address] Marine Feliciano, PA [address] [place] [address] Health Maintenance Due Date Last [...] 11/26/2017 [facility]-Zoster Vaccines (1 of 2) 11/26/2017 [id number] Vaccine ( - season) 2023 [facility]-Diabetes: Hemoglobin [...] 12.3(H) <5.7 % 12/21/2023 4:30 AM EDT [facility] Blood Venous blood specimen / Unknown Venipuncture / Unknown 12/21/2023 2:02 AM EDT 12/21/2023 2:23 AM EDT Narrative [facility] - 12/21/2023 4:30 AM EDT HA1C Interpretive Data: Diagnosis of Diabetes: Diabetic > or = 6.5% Pre-diabetic 5.7 to 6.4% Non-diabetic < or = 5.6% Glycemic Targets for Type I and Type II Diabetics: Non- Adults <7.0% Adults <6.0% Children and Adolescents <7.5% Source: [place] [employer]. Standards of medical care in diabetes,2017. Diabetes Care.2017:40 (suppl 1):S1-S135. HbA1c assay performed by an ion-exchange chromatography method that is certified traceable to the DCCT. 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 Yes Patient has decision-making capacity? Yes Care Teams Poultry Field Service Technician Relationship Specialty Start Date End Date Pcp, No [address] [place] [address] PCP - General Family Medicine 05/22/24
[2024-11-20 07:48] LABS: Albumin Level 3.1 g/dl (3.5-5.0); Chloride 108 mmol/L (98-107)
[2024-11-20 07:49] LABS: Potassium 4.5 mmoL/L (3.5-5.1); Sodium 139 mmol/L (136-145)
[2024-11-20 07:51] LABS: Alanine Aminotransferase 18 U/L (12-78); Albumin/Globulin Ratio 1.3 (1.1-1.8); Alkaline Phosphatase 79 U/L (38-126); Anion Gap 5.5 mEq/L (5-15); Aspartate Amino Transferase 24 U/L (14-36); Blood Urea Nitrogen 23 mg/dl (7-17); Carbon Dioxide 30 mmol/L (22.0-30.0); Creatinine,Serum 1.00 mg/dl (0.52-1.04); Estimated Glomerular Filt Rate 57 ml/min (>60); GFR (African American) 69 ML/MIN (>60); Globulin 2.4 g/dL (1.3-3.2); Total Protein,Serum 5.5 g/dl (6.3-8.2)
[2024-11-20 07:52] LABS: Calcium 8.7 mg/dl (8.4-10.2); Cholesterol 104 mg/dl (140-200); Glucose 147 mg/dl (74-100); HDL Cholesterol 23 mg/dl (40-60); Triglycerides 147 mg/dl (30-150)
[2024-11-20 07:54] LABS: Bilirubin,Total 0.1 mg/dl (0.2-1.3)
[2024-11-20 08:33] LABS: Hemoglobin A1C 7.7 % (4.0-6.0)
== END 2024-11-20 23:59 | disposition home or self-care (01) ==
PROVIDERS: PCP Family Medicine; Visit Provider Family Medicine
DX: E11.9 Type 2 diabetes mellitus without complications (principal)
CPT/HCPCS: 36415; 80053; 80061; 83036

== ENCOUNTER 2025-03-03 10:25 | Outpatient (CLI) | payer MEDICAID, SELFPAY ==
[2025-03-03 11:02] LABS: Hematocrit 33.9 % (37.0-47.0); Hemoglobin 10.5 g/dL (12.2-16.2); Immature Granulocytes % 0.3 %; Mean Corpuscular HGB Conc 31.0 g/dL (31.8-35.4); Mean Corpuscular Hemoglobin 27.5 pg (27.0-31.2); Mean Corpuscular Volume 88.7 fl (81-99); Nucleated Red Blood Cells % 0 %; Platelet Count 184 K/mm3 (142-424); Red Blood Count 3.82 M/mm3 (4.20-5.40); Red Cell Distribution Width-SD 43.9 fL; White Blood Count 5.9 K/mm3 (4.8-10.8)
[2025-03-03 11:17] LABS: Alanine Aminotransferase 18 U/L (12-78); Albumin Level 3.9 g/dl (3.5-5.0); Albumin/Globulin Ratio 1.3 (1.1-1.8); Alkaline Phosphatase 118 U/L (38-126); Anion Gap 11.8 mEq/L (5-15); Aspartate Amino Transferase 23 U/L (14-36); Bilirubin,Total 0.3 mg/dl (0.2-1.3); Blood Urea Nitrogen 27 mg/dl (7-17); Calcium 9.1 mg/dl (8.4-10.2); Carbon Dioxide 32 mmol/L (22.0-30.0); Chloride 102 mmol/L (98-107); Creatinine,Serum 1.00 mg/dl (0.52-1.04); Estimated Glomerular Filt Rate 57 ml/min (>60); GFR (African American) 69 ML/MIN (>60); Globulin 2.9 g/dL (1.3-3.2); Glucose 174 mg/dl (74-100); Potassium 4.8 mmoL/L (3.5-5.1); Sodium 141 mmol/L (136-145); Total Protein,Serum 6.8 g/dl (6.3-8.2)
[2025-03-03 12:58] LABS: Hemoglobin A1C 8.0 % (4.0-6.0)
== END 2025-03-03 23:59 | disposition home or self-care (01) ==
LOC: LAB.DROPOF 10:25
PROVIDERS: PCP Family Medicine; Visit Provider Nurse Practitioner Family
DX: E78.2 Mixed hyperlipidemia (principal); E11.649 Type 2 diabetes mellitus with hypoglycemia without coma; Z79.4 Long term (current) use of insulin; G81.94 Hemiplegia, unspecified affecting left nondominant side; Z72.0 Tobacco use; E11.40 Type 2 diabetes mellitus with diabetic neuropathy, unspecified; I67.9 Cerebrovascular disease, unspecified; J44.9 Chronic obstructive pulmonary disease, unspecified; Z95.818 Presence of other cardiac implants and grafts; K74.60 Unspecified cirrhosis of liver; I10 Essential (primary) hypertension; F41.9 Anxiety disorder, unspecified; M81.0 Age-related osteoporosis without current pathological fracture; R13.13 Dysphagia, pharyngeal phase; R47.9 Unspecified speech disturbances
CPT/HCPCS: 36415; 80053; 83036; 85025

== ENCOUNTER 2025-03-08 09:30 | Outpatient (CLI) | payer MEDICAID, SELFPAY | END 2025-03-08 23:59 | disposition home or self-care (01) | LOC: LAB.DROPOF 09:30 | PROVIDERS: PCP Family Medicine; Visit Provider Nurse Practitioner Family | DX: Z51.81 Encounter for therapeutic drug level monitoring (principal) | CPT/HCPCS: 36415; 80175 ==

== ENCOUNTER 2025-03-08 12:56 | Outpatient (CLI) | payer MEDICAID, SELFPAY ==
--- NOTE | 2025-03-08 13:00 | CA_ITS ---
FINAL REPORT TECHNIQUE: Arterial duplex Doppler evaluation of the lower extremities with spectral analysis. CLINICAL HISTORY: DM, HTN, HLD, DM, smoker, edema, wound R great toe. Pt unable to rotate legs and unable to hold still. Limited exam FINDINGS: Right lower extremity, flow velocities (cm per second): Common femoral artery: 165.8 Proximal SFA: 127 Distal SFA: 72 Popliteal: 110 Anterior tibial artery: 47 DP: Not visualized Plaque throughout. Monophasic waveform. No vessel occlusion. Left lower extremity, flow velocities (cm per second): Common femoral artery: 199 Proximal SFA: 139 Distal SFA: 120 Popliteal: 103 Anterior tibial artery: Not visualized Posterior tibial artery: 108 DP: Not visualized Plaque throughout. Monophasic waveform. No vessel occlusion. IMPRESSION: There are plaques throughout. Monophasic waveform bilaterally. No vessel occlusion. Consider CTA for further evaluation. Reviewed, Interpreted and Dictated by Randi Hector MD Transcribed by Jody Granda Authenticated and . [facility]
== END 2025-03-08 23:59 | disposition home or self-care (01) ==
LOC: RT 12:57
PROVIDERS: PCP Family Medicine; Visit Provider Family Medicine
DX: I70.203 Unspecified atherosclerosis of native arteries of extremities, bilateral legs (principal); E11.649 Type 2 diabetes mellitus with hypoglycemia without coma; Z79.4 Long term (current) use of insulin; L97.509 Non-pressure chronic ulcer of other part of unspecified foot with unspecified severity
CPT/HCPCS: 93925